=== PATIENT | male | born 1950 | race Caucasian/White ===

== ENCOUNTER 2018-04-29 14:14 | Observation (INO) | payer MEDICARE ==
[~2018-04-29] VITALS: Ht 175.3 cm; Wt 76.0 kg
[2018-04-29] MEDS ORDERED: NORVASC10 MG PO (14:22)
[2018-04-29 14:30] VITALS: BP 141/77
[2018-04-29 14:54] LABS: BASOPHILS 0.3 % (0-2); EOSINOPHILS 2.9 % (0-7); HEMATOCRIT 43.8 % (42.0-54.0); HEMOGLOBIN 15.2 g/dL (13.5-17.5); IMMATURE GRANULOCYTES 0.2 % (0-5); LYMPHOCYTES 10.7 % (15-50); MCH 33.9 pg (26.0-34.0); MCHC 34.7 g/dL (31.0-37.0); MCV 97.6 fL (80.0-100.0); MEAN PLATELET VOLUME 11.9 fL (7.4-10.4); MONOCYTES 9.1 % (2-11); NEUTROPHILS 76.8 % (40-80); PLATELET COUNT 157 10x3/uL (130-400); RBC 4.49 10x6/uL (4.20-6.10); WBC 10.6 10x3/uL (4.8-10.8)
[2018-04-29 15:09] LABS: ALBUMIN 3.6 g/dL (3.4-5.0); ALKALINE PHOSPHATASE 70 U/L (46-116); ALT (SGPT) 15 U/L (10-68); BILIRUBIN - TOTAL 0.81 mg/dL (0.2-1.3); CALC OSMOLALITY 281 mosm/kg (275-300); CALCIUM 9.3 mg/dL (8.5-10.1); CARBON DIOXIDE 29.1 mmol/L (21.0-32.0); CHLORIDE - SERUM 103 mmol/L (98-107); CREATININE - SERUM 0.7 mg/dL (0.6-1.3); GLUCOSE 109 mg/dL (74-106); POTASSIUM - SERUM 4.2 mmol/L (3.5-5.1); PROTEIN - SERUM 7.2 g/dL (6.4-8.2); SODIUM 140 mmol/L (136-145); UREA NITROGEN 17 mg/dL (7-18); eGFR NON AFRICAN AMERICAN > 90 mL/min (90-120)
[2018-04-29 15:30] VITALS: BP 144/86
[2018-04-29 16:30] VITALS: BP 156/93
[2018-04-29 17:09] LABS: APTT 27.5 SECONDS (22.8-39.4); INR 0.91 (0.85-1.17); PROTIME 11.9 SECONDS (11.6-15.0)
[2018-04-29 17:11] LABS: D-DIMER-QUANTITATIVE 0.96 ug/mLFEU (0.20-0.54)
[2018-04-29 17:16] LABS: CKMB 3.5 U/L (0.0-3.6); CREATINE KINASE 138 UL (21-232); PRO BNP 170 pg/mL (0-125); TROPONIN-I < 0.017 ng/mL (0.000-0.060)
[2018-04-29 17:30] VITALS: BP 157/94
[2018-04-29 18:30] VITALS: BP 160/90
[2018-04-29 21:09] VITALS: BP 142/79
[2018-04-29] MEDS ORDERED: ELAVIL10 MG PO (22:08)
[2018-04-29] MEDS ORDERED: PROAIR HFA8.5 GM INH (22:24)
[2018-04-30 02:46] VITALS: Ht 175.3 cm; Wt 76.0 kg
[2018-04-30 05:14] LABS: BASOPHILS 0.2 % (0-2); EOSINOPHILS 0 % (0-7); HEMATOCRIT 43.9 % (42.0-54.0); HEMOGLOBIN 14.8 g/dL (13.5-17.5); IMMATURE GRANULOCYTES 0.2 % (0-5); LYMPHOCYTES 6.8 % (15-50); MCHC 33.7 g/dL (31.0-37.0); MCV 97.8 fL (80.0-100.0); MEAN PLATELET VOLUME 12.4 fL (7.4-10.4); MONOCYTES 0.8 % (2-11); PLATELET COUNT 149 10x3/uL (130-400); RBC 4.49 10x6/uL (4.20-6.10); RDW 13.7 % (11.5-14.5)
[2018-04-30 05:19] LABS: WBC 6.3 10x3/uL (4.8-10.8)
[2018-04-30 05:33] LABS: ALBUMIN 3.4 g/dL (3.4-5.0); ALKALINE PHOSPHATASE 66 U/L (46-116); CALCIUM 9.1 mg/dL (8.5-10.1); CARBON DIOXIDE 27.8 mmol/L (21.0-32.0); CHLORIDE - SERUM 104 mmol/L (98-107); CREATININE - SERUM 0.7 mg/dL (0.6-1.3); POTASSIUM - SERUM 4.2 mmol/L (3.5-5.1); PROTEIN - SERUM 6.9 g/dL (6.4-8.2); SODIUM 140 mmol/L (136-145); UREA NITROGEN 17 mg/dL (7-18); eGFR NON AFRICAN AMERICAN > 90 mL/min (90-120)
[2018-04-30 05:37] LABS: ALT (SGPT) 20 U/L (10-68); CALC OSMOLALITY 283 mosm/kg (275-300); GLUCOSE 161 mg/dL (74-106)
[2018-04-30 05:50] VITALS: BP 146/88
[2018-04-30 08:25] VITALS: BP 168/93
[2018-04-30 11:38] VITALS: BP 157/75
[2018-04-30 15:22] VITALS: BP 138/87
[2018-04-30 20:22] VITALS: BP 140/88
[2018-05-01] VITALS: BP 116/88
[2018-05-01 05:19] LABS: BASOPHILS 0.1 % (0-2); EOSINOPHILS 0 % (0-7); HEMATOCRIT 41.9 % (42.0-54.0); HEMOGLOBIN 14.2 g/dL (13.5-17.5); IMMATURE GRANULOCYTES 0.3 % (0-5); LYMPHOCYTES 3.1 % (15-50); MCH 33.3 pg (26.0-34.0); MCHC 33.9 g/dL (31.0-37.0); MCV 98.4 fL (80.0-100.0); MEAN PLATELET VOLUME 11.8 fL (7.4-10.4); MONOCYTES 3.5 % (2-11); PLATELET COUNT 138 10x3/uL (130-400); RBC 4.26 10x6/uL (4.20-6.10); RDW 13.8 % (11.5-14.5)
[2018-05-01 05:23] LABS: WBC 17.6 10x3/uL (4.8-10.8)
[2018-05-01 05:42] LABS: CALC OSMOLALITY 287 mosm/kg (275-300); CALCIUM 8.4 mg/dL (8.5-10.1); CARBON DIOXIDE 29.4 mmol/L (21.0-32.0); CHLORIDE - SERUM 106 mmol/L (98-107); CREATININE - SERUM 0.7 mg/dL (0.6-1.3); GLUCOSE 159 mg/dL (74-106); POTASSIUM - SERUM 4.1 mmol/L (3.5-5.1); SODIUM 143 mmol/L (136-145); UREA NITROGEN 13 mg/dL (7-18); eGFR NON AFRICAN AMERICAN > 90 mL/min (90-120)
[2018-05-01 06:35] VITALS: BP 131/70
[2018-05-01 07:53] VITALS: BP 124/79
[2018-05-01] MEDS ORDERED: SINGULAIR10 MG PO (10:46)
[2018-05-01] MEDS ORDERED: OMNICEF300 MG PO (10:46)
[2018-05-01] MEDS ORDERED: PULMICORT0.5 MG/21 UPD (10:46)
[2018-05-01] MEDS ORDERED: PROTONIX40 MG PO (10:46)
[2018-05-01] MEDS ORDERED: MEDROL DOSE PACK4 MG PO (10:47)
[2018-05-01] MEDS ORDERED: BROVANA15 MCG/2 M INH (10:48)
[2018-05-01] MEDS ORDERED: IPRAT-ALBUT 0.5-3 ML UPD ×2 (10:48→11:51)
[2018-05-01] MEDS ORDERED: ADVAIR 250/501 DISK INH (11:08)
[2018-05-01] MEDS ORDERED: COMBIVENT RESPIM4 GM INH ×3 (11:08→11:53)
[2018-05-01] MEDS ORDERED: PREDNISONE20 MG PO ×2 (11:08→11:54)
[2018-05-01] MEDS ORDERED: SYMBICORT 16010.2 GM INH (11:53)
[2018-05-01 11:57] VITALS: BP 141/85
[2018-05-05 13:19] LABS: IMMUNOGLOBULIN E 680 IU/mL (0-100)
== END 2018-05-01 14:05 | disposition home or self-care (01) ==
LOC: D.ER 14:14 → D.M2 18:26 → OBSVTIME 18:26 → D.M2 18:26
PROVIDERS: Family Medicine; Internal Medicine Pulmonary Disease
DX: J44.1 Chronic obstructive pulmonary disease with (acute) exacerbation (principal); Z86.73 Personal history of transient ischemic attack (TIA), and cerebral infarction without residual deficits; I10 Essential (primary) hypertension; F17.210 Nicotine dependence, cigarettes, uncomplicated; J31.0 Chronic rhinitis; K44.9 Diaphragmatic hernia without obstruction or gangrene; K57.92 Diverticulitis of intestine, part unspecified, without perforation or abscess without bleeding; F41.8 Other specified anxiety disorders

== ENCOUNTER 2019-09-14 03:54 | Inpatient (IN) | payer MEDICARE ==
[~2019-09-14] VITALS: Ht 175.3 cm; Wt 77.3 kg
[~2019-09-14 03:54] MED LIST: ADVAIR 250/501 DISK INH; BROVANA15 MCG/2 M INH; COMBIVENT RESPIM4 GM INH; ELAVIL10 MG PO; IPRAT-ALBUT 0.5-3 ML UPD; MEDROL DOSE PACK4 MG PO; NORVASC10 MG PO; OMNICEF300 MG PO; PREDNISONE20 MG PO; PROAIR HFA8.5 GM INH; PROTONIX40 MG PO; PULMICORT0.5 MG/21 UPD; SINGULAIR10 MG PO; SYMBICORT 16010.2 GM INH
[2019-09-14] MEDS ORDERED: MUCINEX600 MG (04:01)
[2019-09-14] MEDS ORDERED: MUCINEX600 MG PO (04:02)
[2019-09-14] MEDS ORDERED: FLUTICASONE PRO16 GM NASAL (04:03)
[2019-09-14 04:42] LABS: BASOPHILS 0.2 % (0-2); EOSINOPHILS 0.1 % (0-7); HEMATOCRIT 47.9 % (42.0-54.0); IMMATURE GRANULOCYTES 0.7 % (0-5); LYMPHOCYTES 4.9 % (15-50); MCH 34.7 pg (26.0-34.0); MCHC 33.4 g/dL (31.0-37.0); MCV 103.9 fL (80.0-100.0); MEAN PLATELET VOLUME 10.8 fL (7.4-10.4); MONOCYTES 13.8 % (2-11); NEUTROPHILS 80.3 % (40-80); PLATELET COUNT 203 10x3/uL (130-400); RBC 4.61 10x6/uL (4.20-6.10); WBC 11.7 10x3/uL (4.8-10.8)
[2019-09-14 04:49] LABS: APTT 28.6 SECONDS (22.8-39.4); INR 1.02 (0.85-1.17); PROTIME 12.9 SECONDS (11.6-15.0)
[2019-09-14 05:00] VITALS: BP 125/71
--- NOTE | 2019-09-14 05:00 | NUR ---
RT PLACED ON BIPAP
[2019-09-14 05:05] LABS: CALC OSMOLALITY 284 mosm/kg (275-300); CALCIUM 8.8 mg/dL (8.5-10.1); CARBON DIOXIDE 28.1 mmol/L (21.0-32.0); CHLORIDE - SERUM 101 mmol/L (98-107); CREATININE - SERUM 0.7 mg/dL (0.6-1.3); GLUCOSE 149 mg/dL (74-106); POTASSIUM - SERUM 3.4 mmol/L (3.5-5.1); SODIUM 141 mmol/L (136-145); UREA NITROGEN 15 mg/dL (7-18); eGFR NON AFRICAN AMERICAN > 90 mL/min (90-120)
[2019-09-14 05:20] LABS: ALBUMIN 2.5 g/dL (3.4-5.0); ALKALINE PHOSPHATASE 75 U/L (46-116); ALT (SGPT) 36 U/L (10-68); BILIRUBIN - TOTAL 0.46 mg/dL (0.2-1.3); CREATINE KINASE 281 UL (21-232); PRO BNP 834 pg/mL (0-125); PROTEIN - SERUM 7.6 g/dL (6.4-8.2); TROPONIN-I < 0.017 ng/mL (0.000-0.060)
--- NOTE | 2019-09-14 06:43 | NUR ---
RECIEVED RE[PORT FROM [facility], AT SHIFT CHANGE. PT ARRIVED BY WHEELCHAIR, BIPAP AT BEDSIDE. PT AAOX4, VSS, SBP 160'S. NO S/S OF DISTRESS. PT QUICKSTART. WHEEL TRANSFER PT CARE TO INCOMING NURSE. PT DENIES ANY FURTHER NEEDS AT THIS TIME. CL WITHIN REACH.
[2019-09-14 08:00] VITALS: BP 160/82
[2019-09-14 11:36] VITALS: BP 129/78
--- NOTE | 2019-09-14 12:53 | NUR ---
RECIEVED PT FROM ED PER ANA PAULA STAPLES, AT 1100 PT TAKEN OFF BIPAP WAS WIDE AWAKE AT THIS TIME, PLACE ON 5L/M NASAL CANNULA. 1251 PT C/O SOB, GIVEN PRN TX FOR SOB, ASK PT TO PLACE BIPAP BACK ON BUT ASK TO WAIT FOR 1 HOUR TO SEE IF HE COULD GET ANY SECRETIONS COUGHED OUT
[2019-09-14 15:55] VITALS: BP 164/82; BMI 24.4
[2019-09-14 16:04] VITALS: BP 170/79
--- NOTE | 2019-09-14 19:45 | NUR ---
EVENING ROUNDS COMPLETED, VSS, WITH O2SAT 92 ON 4L O2. RT @BEDSIDE. EDUCATE PT ON THE NEED TO KEEP BIPAP ON @NIGHT. PT VOICED UNDERSTANDING. PT ALERT AND ORIENTED. SPOKE AT LENT WITH DAUGHTER CARLI, WHO WAS CONCERENED ABOUT PT'S DIAGNOSIS. PT DENIES ANY FURTHER NEEDS AT THIS TIME. NS INFUSING @ 75. WILL CPOC. CL WITHIN REACH, BED IN LOW, SR UP X2.
[2019-09-14 20:15] VITALS: BP 157/75
[2019-09-15] VITALS (7 sets, daily range): BP systolic 138–171; BP diastolic 73–86; Ht 175.3 cm; Wt 77.3 kg
[2019-09-15 05:23] LABS: BASOPHILS 0.1 % (0-2); EOSINOPHILS 0 % (0-7); HEMATOCRIT 43.6 % (42.0-54.0); HEMOGLOBIN 14.1 g/dL (13.5-17.5); IMMATURE GRANULOCYTES 0.6 % (0-5); LYMPHOCYTES 3.5 % (15-50); MCH 34.2 pg (26.0-34.0); MCHC 32.3 g/dL (31.0-37.0); MCV 105.8 fL (80.0-100.0); MEAN PLATELET VOLUME 10.9 fL (7.4-10.4); NEUTROPHILS 88.8 % (40-80); PLATELET COUNT 216 10x3/uL (130-400); RBC 4.12 10x6/uL (4.20-6.10); RDW 14.8 % (11.5-14.5); WBC 10.4 10x3/uL (4.8-10.8)
[2019-09-15 05:47] LABS: ALBUMIN 2.1 g/dL (3.4-5.0); ALKALINE PHOSPHATASE 90 U/L (46-116); BILIRUBIN - TOTAL 0.33 mg/dL (0.2-1.3); CALCIUM 8.2 mg/dL (8.5-10.1); CARBON DIOXIDE 32.6 mmol/L (21.0-32.0); CHLORIDE - SERUM 106 mmol/L (98-107); PHOSPHOROUS 2.6 mg/dL (2.5-4.9); POTASSIUM - SERUM 4.7 mmol/L (3.5-5.1); PRO BNP 868 pg/mL (0-125); PROTEIN - SERUM 6.5 g/dL (6.4-8.2); SODIUM 144 mmol/L (136-145)
[2019-09-15 05:48] LABS: ALT (SGPT) 58 U/L (10-68); CALC OSMOLALITY 295 mosm/kg (275-300); CREATININE - SERUM 0.5 mg/dL (0.6-1.3); GLUCOSE 200 mg/dL (74-106); UREA NITROGEN 20 mg/dL (7-18); eGFR NON AFRICAN AMERICAN > 90 mL/min (90-120)
--- NOTE | 2019-09-15 07:48 | NUR ---
ASSESSMENT DONE. DENIES NEEDS
--- NOTE | 2019-09-15 16:52 | NUR ---
I have reviewed this patient and I concur with the Shift Assessment completed by the Licensed Practical Nurse today this shift.
--- NOTE | 2019-09-15 17:48 | NUR ---
WITHOUT CHANGES OR DISTRESS NOTED AT THIS TIME.
--- NOTE | 2019-09-15 19:10 | NUR ---
BEDSIDE REPORT RECEIVED FROM DAY SHIFT, PT CARE ASSUMED. INTRODUCED SELF AND WROTE NAME ON BOARD. PT LYING IN BED, WATCHING TV, AAOX4. REQUESTING COFFEE, PROVIDED. DENIES PAIN OR ANY OTHER NEEDS AT THIS TIME. BED IN LOWEST POSITION, SR X2, CALL LIGHT WITHIN REACH. WILL CONTINUE TO MONITOR.
--- NOTE | 2019-09-15 23:08 | NUR ---
PT C/O PIV TO LEFT WRIST "CAME OUT WHILE USING THE URINAL". CATHETER TIP INTACT, NO BLEEDING NOTED AT SITE. PIV RESITED TO LEFT FOREARM, 20 GAUGE, ATTEMPTS X2, PT TOLERATED WELL, FLUSHES WITHOUT ISSUES, NO S/S OF INFILTRATION OR INFLAMMATION. REQUESTING WATER, PROVIDED. DENIES ANY OTHER NEEDS AT THIS TIME. BED IN LOWEST POSITION, SR X2, CALL LIGHT WITHIN REACH. WILL CONTINUE TO MONITOR.
[2019-09-16 04:00] VITALS: BP 140/83
--- NOTE | 2019-09-16 07:30 | NUR ---
ASSESSMENT DONE. DENIES NEEDS
[2019-09-16 08:00] VITALS: BP 149/81
[2019-09-16 12:43] VITALS: BP 135/76
--- NOTE | 2019-09-16 15:09 | NUR ---
I have reviewed this patient and I concur with the Shift Assessment completed by the Licensed Practical Nurse today this shift.
[2019-09-16 16:13] VITALS: BP 127/76
--- NOTE | 2019-09-16 19:10 | NUR ---
BEDSIDE REPORT RECEIVED FROM DAY SHIFT, PT CARE ASSUMED. WROTE NAME ON BOARD. PT LYING IN BED WITH EYES CLOSED, NO S/S OF DISTRESS, BIPAP IN USE, DENIES ANY NEEDS AT THIS TIME. BED IN LOWEST POSITION, SR X2, CALL LIGHT WITHIN REACH. WILL CONTINUE TO MONITOR.
[2019-09-16 20:00] VITALS: BP 134/66
[2019-09-17] VITALS: BP 124/64
[2019-09-17 04:00] VITALS: BP 136/68
[2019-09-17 05:09] LABS: BASOPHILS 0.1 % (0-2); EOSINOPHILS 0 % (0-7); HEMATOCRIT 44.7 % (42.0-54.0); HEMOGLOBIN 14.5 g/dL (13.5-17.5); IMMATURE GRANULOCYTES 1.4 % (0-5); LYMPHOCYTES 5.5 % (15-50); MCHC 32.4 g/dL (31.0-37.0); MCV 104.9 fL (80.0-100.0); PLATELET COUNT 219 10x3/uL (130-400); RBC 4.26 10x6/uL (4.20-6.10); RDW 14.2 % (11.5-14.5); WBC 11.8 10x3/uL (4.8-10.8)
[2019-09-17 05:35] LABS: CALCIUM 7.9 mg/dL (8.5-10.1); CARBON DIOXIDE 38.1 mmol/L (21.0-32.0); CHLORIDE - SERUM 104 mmol/L (98-107); CREATININE - SERUM 0.4 mg/dL (0.6-1.3); GLUCOSE 159 mg/dL (74-106); MAGNESIUM - SERUM 1.8 mg/dL (1.8-2.4); PHOSPHOROUS 2.5 mg/dL (2.5-4.9); SODIUM 145 mmol/L (136-145); eGFR NON AFRICAN AMERICAN > 90 mL/min (90-120)
[2019-09-17 05:40] LABS: CALC OSMOLALITY 291 mosm/kg (275-300); POTASSIUM - SERUM 3.7 mmol/L (3.5-5.1); UREA NITROGEN 13 mg/dL (7-18)
--- NOTE | 2019-09-17 06:14 | NUR ---
IV FOUND IN BED, CATHETER TIP INTACT, NO S/S OF BLEEDING AT SITE ON LEFT FOREARM. PT DENIES REMOVING IV, STATES "IT MUST HAVE HAPPENED WHILE I WAS SLEEPING." AM MEDS ADMINISTERED, PER ORDER. DENIES ANY OTHER NEEDS AT THIS TIME. BED IN LOWEST POSITION, SR X1, CALL LIGHT WITHIN REACH. WILL CONTINUE TO MONITOR.
--- NOTE | 2019-09-17 07:00 | NUR ---
RECEIVED REPORT. ASSUMED CARE OF PATIENT. CALL LIGHT WITHIN REACH. PATIENT RESTING WITH EYES CLOSED, LYING ON RIGHT LATERAL SIDE. NO DISTRESS. RESP EVEN AND UNLABORED.
[2019-09-17 07:56] VITALS: BP 131/59
--- NOTE | 2019-09-17 09:10 | NUR ---
20 GAUGE IV PLACED TO RIGHT HAND X 1 STICK. GOOD BLOOD RETURN, EASY FLUSH. TAPED, DATED AND SECURED. TOLERATED IV PLACEMENT WELL. IV FLUIDS INFUSING ORDERED AT THIS TIME. PATIENT ON BIPAP.
[2019-09-17 11:19] VITALS: BP 130/73
--- NOTE | 2019-09-17 11:29 | NUR ---
FSBS 188. PATIENT WOULD NOT ACCEPT WHOLE 8 UNITS, WOULD ONLY ACCEPT HALF. 4 UNITS ADMINISTERED. PATEINT RESTING IN BED AT THIS TIME. NO DISTRESS.
--- NOTE | 2019-09-17 14:40 | NUR ---
RESTING IN BED. NO DISTRESS. CALL LIGHT WITHIN REACH. IV FLUIDS/LEVAQUIN INFUSING ORDERED AT THIS TIME. NO DISTRESS.
[2019-09-17 15:15] VITALS: BP 124/73
--- NOTE | 2019-09-17 16:36 | NUR ---
FSBS 141. NO INSULIN PER SLIDING SCALE.
--- NOTE | 2019-09-17 17:27 | NUR ---
PATIENT PLACED ON BIPAP AT THIS TIME. NO DISTRESS. RESTING COMFORTABLY.
[2019-09-17 19:55] VITALS: BP 117/64
--- NOTE | 2019-09-17 20:23 | NUR ---
INITIAL ROUNDS COMPLETED AT 1910 HRS. PT DENID ANY DISCOMFORT. RT TX IN PROGRESS. ASSESSMENT COMPLETED AT 1935 HRS. VSS. ALERT AND ORIENTED TO PERSON, PLACE AND TIME. CARTER. IV TO R HAND WITH NS AT 50CC/HR. IV PATENT. O2 5LNC. LUNGS DIMINISHED IN BASES BILAT. ABD SOFT WTIH ACTIVE BS NOTED. CALL LIGHT WITHIN REACH.
--- NOTE | 2019-09-17 22:29 | NUR ---
PM FSBS 184. 8 UNIJTS REG INSULIN GIVEN SUB-Q TO UPPER L ARM. PM MEDS GIVEN PER ORDERS. PT CURRENTLY WATCHING TV. SR UP X1, CALL LIGHT WITHIN REACH.
--- NOTE | 2019-09-17 23:08 | NUR ---
WATCHING TV. NO DISTRESS NOTED.
--- NOTE | 2019-09-18 00:19 | NUR ---
VSS. BIPAP IN USE. CALL LIGHT WITHIN REACH.
[2019-09-18 00:21] VITALS: BP 150/86
--- NOTE | 2019-09-18 01:56 | NUR ---
PT RESTING WITH EYES CLOSED. RESP EVEN AND REGULAR. BIPAP IN USE. SR UP X1, CALL LIGHT WITHIN REACH.
--- NOTE | 2019-09-18 04:39 | NUR ---
PT RESTING WITH EYES CLOSED. RESP EVEN AND REGULAR. SR UP X3, CALL LIGHT WITHIN REACH.
[2019-09-18 04:49] VITALS: BP 137/61
[2019-09-18 05:17] LABS: BASOPHILS 0.1 % (0-2); EOSINOPHILS 0 % (0-7); HEMATOCRIT 44.9 % (42.0-54.0); HEMOGLOBIN 14.9 g/dL (13.5-17.5); IMMATURE GRANULOCYTES 1.6 % (0-5); LYMPHOCYTES 3.9 % (15-50); MCH 34.1 pg (26.0-34.0); MCHC 33.2 g/dL (31.0-37.0); MEAN PLATELET VOLUME 11.3 fL (7.4-10.4); MONOCYTES 7.1 % (2-11); NEUTROPHILS 87.3 % (40-80); PLATELET COUNT 188 10x3/uL (130-400); RBC 4.37 10x6/uL (4.20-6.10); RDW 13.9 % (11.5-14.5); WBC 10.4 10x3/uL (4.8-10.8)
[2019-09-18 05:30] LABS: CALC OSMOLALITY 289 mosm/kg (275-300); CARBON DIOXIDE 35.3 mmol/L (21.0-32.0); CHLORIDE - SERUM 103 mmol/L (98-107); CREATININE - SERUM 0.5 mg/dL (0.6-1.3); GLUCOSE 182 mg/dL (74-106); POTASSIUM - SERUM 3.8 mmol/L (3.5-5.1); SODIUM 142 mmol/L (136-145); eGFR NON AFRICAN AMERICAN > 90 mL/min (90-120)
[2019-09-18 05:35] LABS: MCV 102.7 fL (80.0-100.0)
[2019-09-18 05:47] LABS: UREA NITROGEN 17 mg/dL (7-18)
--- NOTE | 2019-09-18 05:58 | NUR ---
VSS THROUGHOUT NIGHT. PT DENIED ANY DISCOMFORT. NEEDS MET; WILL CONTINUE TO MONITOR.
--- NOTE | 2019-09-18 07:00 | NUR ---
RECEIVED REPORT. ASSUMED CARE OF PATIENT. CALL LIGHT WITHIN REACH. PATIENT RESTING ON RIGHT LATERAL SIDE WITH EYES CLOSED. RESP EVEN AND UNLABORED. NO DISTRESS.
--- NOTE | 2019-09-18 07:47 | NUR ---
PATIENT SITTING TO BEDSIDE AT THIS TIME STATING THAT HE DIDN'T GET ANY SLEEP LAST NIGHT. PATIENT WAITING FOR AM MEAL. NO DISTRESS. O2 VIA NC AT THIS TIME.
[2019-09-18 07:53] VITALS: BP 145/66
--- NOTE | 2019-09-18 09:17 | NUR ---
BIPAP PLACED ON PATIENT AT THIS TIME.
[2019-09-18 11:28] VITALS: BP 127/71
--- NOTE | 2019-09-18 11:43 | NUR ---
DSBS 171. REFUSED INSULIN AT THIS TIME.
[2019-09-18 15:32] VITALS: BP 142/82
--- NOTE | 2019-09-18 16:42 | NUR ---
FSBS 221. 12 UNITS HUMULIN ADMINISTERED PER SLIDING SCALE. NO DISTRESS.
[2019-09-18 20:30] VITALS: BP 148/67
--- NOTE | 2019-09-18 21:39 | NUR ---
INITIAL ROUNDS COMPLETED AT 1910 HRS. PT DENIED ANY DISCOMFORT. ASSESSMENT COMPLETED AT 1945 HRS. VSS. ALERT AND ORIENTED TO PERSON, PLACE AND TIME. O2 5LNC. LUNGS DIMINISHED IN BASES BILAT. IV TO R HAND WITH NS AT 50CC/HR. IV PATENT. PM FSBS 181. PT REFUSED COVERGAE. PM MEDS GIVEN. PT CURRENTLY WATCHING TV. SR UP X3, CALL LIGHT WITHIN REACH AND DOOR OPEN.
--- NOTE | 2019-09-18 22:49 | NUR ---
PT RESTING WITH EYES CLOSED. RESP EVEN AND REGULAR. SR UP X3, CALL LIGHT WITHIN REACH.
--- NOTE | 2019-09-19 00:26 | NUR ---
PT RESTING WITH EYES CLOSED. RESP EVEN AND REGULAR. BIPAP IN USE. SR UP X3, CALL LIGHT WITHIN REACH.
[2019-09-19 00:45] VITALS: BP 138/81
--- NOTE | 2019-09-19 02:06 | NUR ---
PT WATCHING TV. NO DISTRESS NOTED. CALL LIGHT WITHIN REACH.
[2019-09-19 04:25] VITALS: BP 118/70
--- NOTE | 2019-09-19 04:26 | NUR ---
PT RESTING WITH EYES CLOSED. RESP EVEN AND REGULAR. SR UP X3, CALL LIGHT WITHIN REACH.
[2019-09-19 05:03] LABS: BASOPHILS 0.1 % (0-2); EOSINOPHILS 0 % (0-7); HEMATOCRIT 44.5 % (42.0-54.0); HEMOGLOBIN 14.8 g/dL (13.5-17.5); IMMATURE GRANULOCYTES 1.9 % (0-5); LYMPHOCYTES 4.9 % (15-50); MCHC 33.3 g/dL (31.0-37.0); MCV 102.3 fL (80.0-100.0); MEAN PLATELET VOLUME 11.2 fL (7.4-10.4); MONOCYTES 9.7 % (2-11); NEUTROPHILS 83.4 % (40-80); PLATELET COUNT 200 10x3/uL (130-400); RBC 4.35 10x6/uL (4.20-6.10); RDW 14.1 % (11.5-14.5); WBC 11.5 10x3/uL (4.8-10.8)
[2019-09-19 05:18] LABS: CALC OSMOLALITY 291 mosm/kg (275-300); CHLORIDE - SERUM 103 mmol/L (98-107); GLUCOSE 162 mg/dL (74-106); POTASSIUM - SERUM 3.6 mmol/L (3.5-5.1); SODIUM 144 mmol/L (136-145); UREA NITROGEN 16 mg/dL (7-18)
[2019-09-19 05:24] LABS: CREATININE - SERUM 0.7 mg/dL (0.6-1.3); eGFR NON AFRICAN AMERICAN > 90 mL/min (90-120)
--- NOTE | 2019-09-19 06:01 | NUR ---
VSS THROUGHOUT NIGHT. PT DENIED ANY DISCOMFORT. AM FSBS 162. REFUSED AM INSULIN. NEEDS MET; WILL CONTINUE TO MONITOR.
[2019-09-19 08:00] VITALS: BP 165/79
--- NOTE | 2019-09-19 09:42 | NUR ---
AM MEDS GIVEN AT THIS TIME. PT A/O X4, RESP AND NONLABORED ON 5L. RT HAND IV INFUSING NS AT 50CC/HR. PT DENIES ANY NEEDS AT THIS TIME. CALL LIGHT IN REACH, NAD NOTED,W ILL CONTINUE TO MONITOR.
--- NOTE | 2019-09-19 11:37 | NUR ---
PT TO CT.
--- NOTE | 2019-09-19 11:57 | NUR ---
BLOOD SUGAR OF 245, 12UNITS GIVEN PER S/S. PT RESTING COMFORTABLY IN BED,DENIES ANY NEEDS AT THIS TIME. CALL LIGHT IN REACH, NAD NOTED,W ILL CONTINUE TO MONITOR.
--- NOTE | 2019-09-19 13:51 | NUR ---
Nutrition Follow-up: Doesn't like the hospital food but reports he ate 2/3 of breakfast this AM. Drinking 1-2 Ensure/day. C/o intermittent nausea. Diet: Regular, Ensure TID PO intake: 60% x 7 meals Wt: 170# (09/18); 165# (09/14 - stated) Last BM: 09/19 Labs noted: Glu 162, Ca 8.0 Meds noted: Solumedrol, Humulin, NS @ 50 -Continue current diet as tolerated. -Monitor wt; noted daily wts ordered. -RD following.
[2019-09-19 14:55] VITALS: BP 131/61
[2019-09-19 17:42] VITALS: BP 117/65
--- NOTE | 2019-09-19 19:51 | NUR ---
REPORT RECIEVED AND ROUNDING COMPLETE. PATIENT LAYING IN BED IN HIGH FOWLERS. PATIENT IS RECIVING A BREATHING TREATMENT AT THIS TIME. PATIENT HAS A RIGHT HAND PIV THAT IS PATENT AND RUNNING FLUIDS AT THIS TIME. PIV SHOWS NO S/SX OF INFILTRATION AT THIS TIME. PATIENT WEARS NASAL CANNULA WHEN NOT ON BIPAP. PATIENT STATES HE HAS NO NEEDS AT THIS TIME. PATIENT SHOWS NO S/SX OF DISTRESS AT THIS TIME. CALL LIGHT WITHIN REACH AND BED IN LOWEST LOCKED POSITION
[2019-09-19 20:30] VITALS: BP 140/59
--- NOTE | 2019-09-19 23:39 | NUR ---
I have reviewed this patient and I concur with the Shift Assessment completed by the Licensed Practical Nurse today this shift.
[2019-09-20 00:25] VITALS: BP 142/75
[2019-09-20 04:27] VITALS: BP 137/61
[2019-09-20 05:47] LABS: BASOPHILS 0.1 % (0-2); EOSINOPHILS 0 % (0-7); HEMATOCRIT 42.8 % (42.0-54.0); HEMOGLOBIN 14.6 g/dL (13.5-17.5); IMMATURE GRANULOCYTES 2.7 % (0-5); LYMPHOCYTES 3.8 % (15-50); MCH 34.8 pg (26.0-34.0); MCHC 34.1 g/dL (31.0-37.0); MCV 102.1 fL (80.0-100.0); MEAN PLATELET VOLUME 12.1 fL (7.4-10.4); MONOCYTES 5.4 % (2-11); PLATELET COUNT 166 10x3/uL (130-400); RBC 4.19 10x6/uL (4.20-6.10); RDW 14.3 % (11.5-14.5); WBC 11.5 10x3/uL (4.8-10.8)
[2019-09-20 06:02] LABS: CALC OSMOLALITY 292 mosm/kg (275-300); CARBON DIOXIDE 33.3 mmol/L (21.0-32.0); CHLORIDE - SERUM 104 mmol/L (98-107); CREATININE - SERUM 0.6 mg/dL (0.6-1.3); GLUCOSE 166 mg/dL (74-106); POTASSIUM - SERUM 3.8 mmol/L (3.5-5.1); SODIUM 144 mmol/L (136-145); UREA NITROGEN 19 mg/dL (7-18); eGFR NON AFRICAN AMERICAN > 90 mL/min (90-120)
--- NOTE | 2019-09-20 07:00 | NUR ---
BEDSIDE SHIFT REPORT COMPLETED. ASSUMED CARE OF PATIENT. PATIENT RESTING IN BED ON RIGHT LATERAL SIDE WITH EYES CLOSED. RESP EVEN AND UNLBORED. NO DISTRESS. O2 VIA NC. WHITE BOARD UPDATED.
[2019-09-20 11:01] VITALS: BP 131/68
--- NOTE | 2019-09-20 12:01 | NUR ---
FSBS 159. PATIENT REFUSED INSULIN AT THIS TIME.
--- NOTE | 2019-09-20 16:48 | NUR ---
FSBS 148. NO INSULIN PER SLIDING SCALE.
--- NOTE | 2019-09-20 17:03 | NUR ---
NEW TUBING HUNG AT THIS TIME.
--- NOTE | 2019-09-20 17:05 | MORECARE ---
CASE MANAGEMENT DISCHARGE SUMMARY PATIENT: RIVERA PHILLIPS UNIT: [id number] ADM DATE: 09/14/19 AGE: 69 : 49 SEX: M ROOM/BED: D.2110 AUTHOR: ESCOBAR,DOC PHYSICIAN: REFERRING PHYSICIAN: JOSUE PERES MD DATE OF SERVICE: 09/20/19 Discharge Plan Patient Name: RIVERA PHILLIPS Facility: [facility]:[place] : 1950 Planned Disposition: Home Anticipated Discharge Date: Discharge Date: Expected LOS: Initial Reviewer: [id number] Initial Review Date: 09/20/2019 Generated: 09/20/19 6:04 pm Comments DCP- Discharge Planning Updated by [id number]: Ramiro George on 09/20/19 4:[address] Patient Name: RIVERA PHILLIPS Admission Status: ER Accout number: [id number] Admission Date: 09-14-2019 : 1950 Admission Diagnosis: Attending: JOSUE PERES Current LOS: 6 Anticipated DC Date: Planned Disposition: Home Primary Insurance: MEDICARE A & B Discharge Planning Comments: CM RECEIVED ORDER FOR TRILOGY MACHINE. CM MET WITH PT IN ROOM TO DISCUSS DISCHARGE PLANNING AND NEEDS. PT REPORTS LIVING AT HOME INDEPENDENTLY WITH . PT HAS CANE, NEBULIZER AND WALKER FROM [employer]. PT HAS NO OUTSIDE SERVICES ASSISTING IN THE HOME. CM DISCUSSED AVAILABILITY OF HOME HEALTH, REHAB SERVICES AND MEDICAL EQUIPMENT. PT DOES WANT THE TRILOGY AND HAS NO PREFERENCE ON PROVIDER,, CHOICE COMPELTED. PT DOES NOT WANT TO WAIT FOR [place] PROCESSING OF WEEKS FOR EQUIPMENT. PT REPORTS HIS DAUGHTER WILL PICK HIM UP FOR DISCHARGE HOME. IMPORTANT MESSAGE FROM [employer] PROVIDED AND EXPLAINED. CM CALLED [facility], , SPOKE TO REED AND PROVIDED REFERRAL INFORMATION. CM FAXED REFERRAL TO [facility], . [facility] TO PROCESS REFERRAL FOR TRILOGY MACHINE SOON POSSIBLE. CM WAITING [facility] TO PROCESS TRILOGY MACHINE ORDER. Public Health Analyst: Ramiro George DCPIA - Discharge Planning Initial Assessment Updated by [email or web address]: Ramiro George on 09/20/19 4:57 pm * Is the patient Alert and Oriented? Yes * How many steps to enter\exit or inside your home? * PCP DR. ERAZO * Pharmacy [facility] [address] * Preadmission Environment Home with Family * ADLs Independent * Equipment Cane Nebulizer Walker * Other Equipment [employer] - PROVIDER * List name and contact numbers for known caregivers / representatives who currently or will assist patient after discharge: MITESH GALLAGHER, DTR, * Verbal permission to speak to the caregivers and representatives has been obtained from the patient. N/A * Community resources currently utilized None * Please name any agencies selected above. NONE * Additional services required to return to the preadmission environment? Yes * Can the patient safely return to the preadmission environment? Yes * Has this patient been hospitalized within the prior 30 days at any hospital? No Patient Name: RIVERA PHILLIPS Page [phone] at 1705 All edits/amendments must be made on the electronic document DICTATION DATE: 09/20/191703 BASKETBALLS AND FOOTBALLS REVERSER: TERRY 09/20/191703 RPT#: [id number] DC DATE: STATUS: ADM IN [facility] [address] [place] [address] END OF REPORT
--- NOTE | 2019-09-20 17:13 | MORECARE ---
CASE MANAGEMENT DISCHARGE SUMMARY PATIENT: RIVERA PHILLIPS UNIT: [id number] ADM DATE: 09/14/19 AGE: 69 : 49 SEX: M ROOM/BED: D.2110 AUTHOR: ESCBOAR,DOC PHYSICIAN: REFERRING PHYSICIAN: JOSUE PERES MD DATE OF SERVICE: 09/20/19 Discharge Plan Patient Name: RIVERA PHILLIPS Facility: [facility]:[place] : 1950 Planned Disposition: Home Anticipated Discharge Date: Discharge Date: Expected LOS: Initial Reviewer: [id number] Initial Review Date: 09/20/2019 Generated: 09/20/19 6:12 pm Comments DCP- Discharge Planning Updated by [id number]: Ramiro George on 09/20/19 4:[address] Patient Name: RIVERA PHILLIPS Admission Status: ER Accout number: [id number] Admission Date: 09-14-2019 : 1950 Admission Diagnosis: Attending: JOSUE PERES Current LOS: 6 Anticipated DC Date: Planned Disposition: Home Primary Insurance: MEDICARE A & B Discharge Planning Comments: CM RECEIVED ORDER FOR TRILOGY MACHINE. CM MET WITH PT IN ROOM TO DISCUSS DISCHARGE PLANNING AND NEEDS. PT REPORTS LIVING AT HOME INDEPENDENTLY WITH . PT HAS CANE, NEBULIZER AND WALKER FROM [employer]. PT HAS NO OUTSIDE SERVICES ASSISTING IN THE HOME. CM DISCUSSED AVAILABILITY OF HOME HEALTH, REHAB SERVICES AND MEDICAL EQUIPMENT. PT DOES WANT THE TRILOGY AND HAS NO PREFERENCE ON PROVIDER,, CHOICE COMPELTED. PT DOES NOT WANT TO WAIT FOR CT PROCESSING OF WEEKS FOR EQUIPMENT. PT REPORTS HIS DAUGHTER WILL PICK HIM UP FOR DISCHARGE HOME. IMPORTANT MESSAGE FROM [employer] PROVIDED AND EXPLAINED. CM CALLED [facility], , SPOKE TO REED AND PROVIDED REFERRAL INFORMATION. CM FAXED REFERRAL TO [facility], . [facility] TO PROCESS REFERRAL FOR TRILOGY MACHINE SOON POSSIBLE. CM WAITING [facility] TO PROCESS TRILOGY MACHINE ORDER. Public Safety Teacher: Ramiro George DCPIA - Discharge Planning Initial Assessment Updated by [id number]: Ramiro George on 09/20/19 4:57 pm * Is the patient Alert and Oriented? Yes * How many steps to enter\exit or inside your home? * PCP DR. ERAZO * Pharmacy [facility] [address] * Preadmission Environment Home with Family * ADLs Independent * Equipment Cane Nebulizer Walker * Other Equipment [employer] [facility] PROVID[employer] * List name and contact numbers for known caregivers / representatives who currently or will assist patient after discharge: MITESH GALLAGHER, DTR, * Verbal permission to speak to the caregivers and representatives has been obtained from the patient. N/A * Community resources currently utilized None * Please name any agencies selected above. NONE * Additional services required to return to the preadmission environment? Yes * Can the patient safely return to the preadmission environment? Yes * Has this patient been hospitalized within the prior 30 days at any hospital? No External Providers External Provider: [facility] Next Contact Date: 09/20/2019 Service Request Date: Service Type: Resolution: Reviewer: Comments: Coverage Notice Reviewer: [id number] George Notice Issued Date-Time: 09/20/2019 8:20 Notice Type: IM Discharge Notice Notice Delivered To: Patient Relationship to Patient: Core Shaper Top Name: Delivery Method: HAND - Hand Delivered Jen Days: Prior Verbal Notification: Recipient Understood Notice: Yes Recipient Signature: Yes Med Rec Note Co-signed by Attending: Coverage Notice Comment: Reviewer: IRVIN George Notice Issued Date-Time: 09/20/2019 8:20 Notice Type: Patient Choice Letter Notice Delivered To: Patient Relationship to Patient: Core Shaper Top Name: Delivery Method: HAND - Hand Delivered Jen Days: Prior Verbal Notification: Recipient Understood Notice: Yes Recipient Signature: Yes Med Rec Note Co-signed by Attending: Coverage Notice Comment: NO MEDICAL EQUIPMENT PROVIDER PREFERENCE. Last DP export: 09/20/19 4:05 pm Patient Name: RIVERA PHILLIPS Page [phone] at 1713 All edits/amendments must be made on the electronic document DICTATION DATE: 09/20/191712 ECHOCARDIOGRAPHY TECH: TERRY 09/20/191712 RPT#: [id number] DC DATE: STATUS: ADM IN [facility] [address] [place] [address] END OF REPORT
--- NOTE | 2019-09-20 19:26 | NUR ---
REPORT RECIEVED AND ROUNDING COMPLETE. PATIENT LAYING IN BED IN LOW FOWLERS. PATIENT REQUESTED TO PUT ON HIS BIPAP FOR A BIT. ASSISTED HIM WITH THIS. PATIENT SHOWS NO S/SX OF DISTRESS AT THIS TIME. PATIENT IS A&O X4. PATIENT HAS A RIGHT HAND PIV, PIV IS PATNET AND RUNNING FLUIDS AT THIS TIME. PIV SHOWS NO S/SX OF INFILTRATION. PATIENT STATES HE HAS NO NEEDS AT THIS TIME. CALL LIGHT WITHIN REACH AND BED IN LOWEST LOCKED POSITION.
--- NOTE | 2019-09-20 19:59 | NUR ---
PATIENT TOOK OF HIS BIPAP MACHINE. ASSISTED IN REPLACING HIS NASAL CANNULA WITH THE PRESET 5L O2.
[2019-09-20 20:00] VITALS: BP 143/78
[2019-09-21] VITALS (7 sets, daily range): BP systolic 101–134; BP diastolic 56–76
--- NOTE | 2019-09-21 01:57 | NUR ---
I have reviewed this patient and I concur with the Shift Assessment completed by the Licensed Practical Nurse today this shift.
[2019-09-21 06:11] LABS: BASOPHILS 0.1 % (0-2); EOSINOPHILS 0.6 % (0-7); HEMATOCRIT 42.8 % (42.0-54.0); HEMOGLOBIN 14.2 g/dL (13.5-17.5); IMMATURE GRANULOCYTES 3.7 % (0-5); LYMPHOCYTES 13.6 % (15-50); MCH 33.7 pg (26.0-34.0); MCHC 33.2 g/dL (31.0-37.0); MCV 101.7 fL (80.0-100.0); MEAN PLATELET VOLUME 11.8 fL (7.4-10.4); PLATELET COUNT 160 10x3/uL (130-400); RBC 4.21 10x6/uL (4.20-6.10); RDW 14.4 % (11.5-14.5); WBC 10.9 10x3/uL (4.8-10.8)
[2019-09-21 06:23] LABS: CALCIUM 7.9 mg/dL (8.5-10.1); CARBON DIOXIDE 35.5 mmol/L (21.0-32.0); CHLORIDE - SERUM 102 mmol/L (98-107); CREATININE - SERUM 0.5 mg/dL (0.6-1.3); POTASSIUM - SERUM 3.7 mmol/L (3.5-5.1); SODIUM 142 mmol/L (136-145); eGFR NON AFRICAN AMERICAN > 90 mL/min (90-120)
[2019-09-21 06:24] LABS: CALC OSMOLALITY 283 mosm/kg (275-300); GLUCOSE 90 mg/dL (74-106)
[2019-09-21 06:25] LABS: UREA NITROGEN 14 mg/dL (7-18)
--- NOTE | 2019-09-21 07:19 | NUR ---
REPORT RECIEVED. RR EVEN AND UNLABORED ON 5L NC. PT HAS A R HAND PIV INFUSING NS @100. BED LOCKED AND IN LOWEST POSITION, CALL LIGHT WITHIN REACH. WILL CTM
--- NOTE | 2019-09-21 09:09 | EC ---
PATIENT:RIVERA PHILLIPS DATE OF SERVICE: 09/14/19 SEX: M MEDICAL RECORD: [id number] DATE OF : [birth year] LOCATION:D.M2 D.211 AGE OF PATIENT: 69 ADMISSION DATE: 09/14/19 REFERRING PHYSICIAN: INTERPRETING PHYSICIAN: SORAYA KLEIN MD ECHOCARDIOGRAM REPORT ECHO CHARGES 4 ECHO COMPLETE Date: 09/15/19 CLINICAL DIAGNOSIS: SOB ECHOCARDIOGRAPHIC MEASUREMENTS (adult normal given) AC root (d.<3.7cm) 3.3 cm LV Septum d (<1.2 cm> 0.9 cm Valve Excursion 1.5 cm LV Septum (systole) 1.3 cm Left Atria (s.<4.0cm> 3.4 cm LVPW d(<1.2cm) 1.1 cm RV (d.<2.3cm) 3.1 cm LVPW (sytole) 1.8 cm LV diastole(<5.6CM) 6.1 cm MV E-F(>70mm/sec) cm LV systole 3.5 cm LVOT Diameter 2.0 cm MV exc.(>10mm) cm Est.ejection fraction (50-75%) % DOPPLER: LVIT cm/sec A 108 cm/sec E 86.0 cm/sec LA cm/sec RVSP 56.0 mmHg LVOT 119 cm/sec AOP1/2T m/s Asc. Ao 162 cm/sec RVOT 58.0 cm/sec RA cm/sec PA 113 cm/sec AV Gradient Peak 11.0 mmHg AV Mean 5.5 mmHg AV Area 2.2 cm MV Gradient Peak 6.1 mmHg MV Mean 3.0 mmHg MV Area cm COMMENTS: Retread Technician: 1 JOSEF CHAPMANOE Wooden Box Maker: 3 Dr. Rodriguez TAPE# PACS Pericardial Effusion N DATE OF SERVICE: Adequate 2-D echo, Color-Flow and Spectral Doppler, and M-mode. No LVH. LV internal dimension is normal. Wall motion is normal. EF is greater than or equal to 55%. Aortic valve is tricuspid. No evidence of stenosis by Doppler interrogation. Left atrium is normal. Mitral valve shows no prolapse. Trace MR. Right-sided chambers are grossly normal. Trace TR. TRANSINT:[id number] Voice Confirmation ID: [id number] DOCUMENT ID: [id number] ECHOCARDIOGRAM REPORT [id number] ARNOLD,RIVERA E SORAYA KLEIN MD at 0909 CC: [id number] DICTATION DATE: 09/19/19 1525 CIGAR PACKING EXAMINER: 09/19/19 1845 ADM IN [place] [id number] [place] [id number]
--- NOTE | 2019-09-21 11:07 | NUR ---
PATIENT 95% ON 4L/NC AMBULATE ON RA 86% PATIENT 94% ON 4L/NC WITH AMBULATION
--- NOTE | 2019-09-21 11:50 | MORECARE ---
CASE MANAGEMENT DISCHARGE SUMMARY PATIENT: RIVERA PHILLIPS UNIT: [id number] ADM DATE: 09/14/19 AGE: 69 : 49 SEX: M ROOM/BED: D.2110 AUTHOR: SUSHMA CODY PHYSICIAN: REFERRING PHYSICIAN: JOSUE PERES MD DATE OF SERVICE: 09/21/19 Discharge Plan Patient Name: RIVERA PHILLIPS Facility: [facility]:[place] : 1950 Planned Disposition: Home Anticipated Discharge Date: Discharge Date: Expected LOS: Initial Reviewer: [id number] Initial Review Date: 09/20/2019 Generated: 09/21/19 12:49 pm Comments DCP- Discharge Planning Updated by [id number]: Ramiro George on 09/21/19 10:[address] Patient Name: RIVERA PHILLIPS Encounter No: [id number] : 1950 Primary Insurance: MEDICARE A & B Anticipated DC Date: Planned Disposition: Home DCP follow-up note: CM RECEIVED ORDER FOR HOME OXYGEN TESTING; ORDER FOR RESPIRATORY THERAPY TESTING RECEIVED. PT HAS PREVIOUSLY SIGNED CONSENT FOR [employer] PREFERENCE, [facility] IS WORKING ON TRILOGY. CM SPOKE TO PT IN ROOM, PT IN AGREEMENT WITH USING [employer] FOR ENTIRE ORDER. CM CALLED [employer], , SPOKE TO CAMILO AND PROVIDED REFERRAL INFORMATION. CM FAXED REFERRAL TO [employer], . [facility] TO PROCESS REFERRAL FOR TRILOGY MACHINE AND HOME / PORTABLE OXYGEN. CM WAITING [facility] TO PROCESS TRILOGY MACHINE ORDER AND TO DELIVER PORTABLE OXYGEN TO HOSPITAL ROOM FOR PT'S DISCHARGE HOME TODAY. [facility] TO ARRANGE HOME OXYGEN DELIVERY WITH PT AFTER HIS ARRIVAL AT HOME. Bath Tester: Ramiro George DCP- Discharge Planning Updated by [id number]: Ramiro George on 09/20/19 4:[address] Patient Name: RIVERA PHILLIPS Admission Status: ER Accout number: [id number] Admission Date: 09-14-2019 : 1950 Admission Diagnosis: Attending: JOSUE PERES Current LOS: 6 Anticipated DC Date: Planned Disposition: Home Primary Insurance: MEDICARE A & B Discharge Planning Comments: CM RECEIVED ORDER FOR TRILOGY MACHINE. CM MET WITH PT IN ROOM TO DISCUSS DISCHARGE PLANNING AND NEEDS. PT REPORTS LIVING AT HOME INDEPENDENTLY WITH . PT HAS CANE, NEBULIZER AND WALKER FROM [employer]. PT HAS NO OUTSIDE SERVICES ASSISTING IN THE HOME. CM DISCUSSED AVAILABILITY OF HOME HEALTH, REHAB SERVICES AND MEDICAL EQUIPMENT. PT DOES WANT THE TRILOGY AND HAS NO PREFERENCE ON PROVIDER,, CHOICE COMPELTED. PT DOES NOT WANT TO WAIT FOR [facility] PROCESSING [facility] WEE[place] FOR EQUIPMENT. PT REPORTS HIS DAUGHTER WILL PICK HIM UP FOR DISCHARGE HOME. IMPORTANT MESSAGE FROM [employer] PROVIDED AND EXPLAINED. CM CALLED [facility], , SPOKE TO REED AND PROVIDED REFERRAL INFORMATION. CM FAXED REFERRAL TO [facility], . [facility] TO PROCESS REFERRAL FOR TRILOGY MACHINE SOON POSSIBLE. CM WAITING [facility] TO PROCESS TRILOGY MACHINE ORDER. Bath Tester: Ramiro George DCPIA - Discharge Planning Initial Assessment Updated by [id number]: Ramiro George on 09/20/19 4:57 pm * Is the patient Alert and Oriented? Yes * How many steps to enter\exit or inside your home? * PCP DR. ERAZO * Pharmacy [facility] [address] * Preadmission Environment Home with Family * ADLs Independent * Equipment Cane Nebulizer Walker * Other Equipment [employer] - PROVIDER * List name and contact numbers for known caregivers / representatives who currently or will assist patient after discharge: MITESH GALLAGHER DTR, * Verbal permission to speak to the caregivers and representatives has been obtained from the patient. N/A * Community resources currently utilized None * Please name any agencies selected above. NONE * Additional services required to return to the preadmission environment? Yes * Can the patient safely return to the preadmission environment? Yes * Has this patient been hospitalized within the prior 30 days at any hospital? No Coverage Notice Reviewer: [id number] George Notice Issued Date-Time: 09/20/2019 8:20 Notice Type: IM Discharge Notice Notice Delivered To: Patient Relationship to Patient: Transport Coordinator Name: Delivery Method: HAND - Hand Delivered Jen Days: Prior Verbal Notification: Recipient Understood Notice: Yes Recipient Signature: Yes Med Rec Note Co-signed by Attending: Coverage Notice Comment: Reviewer: IRVIN George Notice Issued Date-Time: 09/20/2019 8:20 Notice Type: Patient Choice Letter Notice Delivered To: Patient Relationship to Patient: Transport Coordinator Name: Delivery Method: HAND - Hand Delivered Jen Days: Prior Verbal Notification: Recipient Understood Notice: Yes Recipient Signature: Yes Med Rec Note Co-signed by Attending: Coverage Notice Comment: NO MEDICAL EQUIPMENT PROVIDER PREFERENCE. Last DP export: 09/20/19 4:13 pm Patient Name: RIVERA PHILLIPS Page [phone] at 1150 All edits/amendments must be made on the electronic document DICTATION DATE: 09/21/19 1149 SCALPER OPERATOR: DM 09/21/19 1149 RPT#: [id number] DC DATE: STATUS: ADM IN [facility] [address] [place] [address] END OF REPORT
[2019-09-21] MEDS ORDERED: MEDROL DOSE PACK4 MG PO (14:31)
--- NOTE | 2019-09-21 15:04 | NUR ---
I AGREE WITH THE ASSESSMENT OF THE PATIENT COMPLETED BY THE PLANT OPERATIONS MANAGER ON STAFF
--- NOTE | 2019-09-21 16:17 | NUR ---
TOLD PT HE WAS BEING DC AND HE SAID HE CANT GET A RIDE UNTIL IN THE MORNING. CALLED DR WINSLOW OFFICE SPOKE WITH DR KEYS TO LET HIM KNOW. WILL CTM
--- NOTE | 2019-09-21 19:33 | NUR ---
EVENING ROUNDS COMPLETED. VSS, WITH O2SAT 94 OM 5L. AAOX4, NO S/S OF RT DISTRESS. RR EVEN AND UNLABORED. PT STATES HE IS FEELING BETTER AND READY TO GO HOME IN THE AM. O2 AT BEDSIDE, HOME CPAP AT BEDSIDE. PT DENIES ANY FURTHER NEEDS AT THIS TIME. WILL CPOC. CL WITHIN REACH, BED IN LOW, SR UP X2.
[2019-09-22 04:00] VITALS: BP 138/64
--- NOTE | 2019-09-22 07:41 | NUR ---
PT RESTING. DENIES NEEDS OR PAIN AT THIS TIME. PT STATES HIS RIDE WILL BE HERE AROUND 0930. RR EVEN AND UNLABORED ON 5L NC. IV NOTED TO RIGHT HAND, SL. BED IN LOWEST POSITION. CALL LIGHT WITHIN REACH. WILL CONTINUE TO MONITOR.
[2019-09-22 08:27] VITALS: BP 126/62
--- NOTE | 2019-09-22 08:39 | NUR ---
UPON WALKING INTO ROOM TO GIVE MEDICATION, PT STATED HE DID NOT WANT THEM AT THIS TIME, HE WOULD TAKE THEM WHEN HE GOT HOME.
--- NOTE | 2019-09-22 09:07 | MORECARE ---
CASE MANAGEMENT DISCHARGE SUMMARY PATIENT: RIVERA PHILLIPS UNIT: [id number] ADM DATE: 09/14/19 AGE: 69 : [birth year] SEX: M ROOM/BED: D.2110 AUTHOR: SUSHMA CODY PHYSICIAN: REFERRING PHYSICIAN: JOSUE PERES MD DATE OF SERVICE: 09/22/19 Discharge Plan Patient Name: RIVERA PHILLIPS Facility: [facility]:[place] : 1950 Planned Disposition: Home Anticipated Discharge Date: 09/22/19 Discharge Date: Expected LOS: 8 Initial Reviewer: [email or web address] Initial Review Date: 09/20/2019 Generated: 09/22/19 10:07 am Comments DCP- Discharge Planning Updated by [email or web address]: Ramiro George on 09/21/19 10:[address] Patient Name: RIVERA PHILLIPS Encounter No: [id number] : 1950 Primary Insurance: MEDICARE A & B Anticipated DC Date: Planned Disposition: Home DCP follow-up note: CM RECEIVED ORDER FOR HOME OXYGEN TESTING; ORDER FOR RESPIRATORY THERAPY TESTING RECEIVED. PT HAS PREVIOUSLY SIGNED CONSENT FOR [employer] [facility], [facility] IS WORKING ON TRILOGY. CM SPOKE TO PT IN ROOM, PT IN AGREEMENT WITH USING [facility] FOR ENTIRE ORDER. CM CALLED [employer] , SPOKE TO CAMILO AND PROVIDED REFERRAL INFORMATION. CM FAXED REFERRAL TO [facility] . [facility] TO PROCESS REFERRAL FOR TRILOGY MACHINE AND HOME / PORTABLE OXYGEN. CM WAITING [facility] TO PROCESS TRILOGY MACHINE ORDER AND TO DELIVER PORTABLE OXYGEN TO HOSPITAL ROOM FOR PT'S DISCHARGE HOME TODAY. [facility] TO ARRANGE HOME OXYGEN DELIVERY WITH PT AFTER HIS ARRIVAL AT HOME. Residential Carpet Installer: Ramiro George DCP- Discharge Planning Updated by [email or web address]: Ramiro George on 09/20/19 4:[address] Patient Name: RIVERA PHILLIPS Admission Status: ER Accout number: [id number] Admission Date: 09-14-2019 : 1950 Admission Diagnosis: Attending: JOSUE PERES Current LOS: 6 Anticipated DC Date: Planned Disposition: Home Primary Insurance: MEDICARE A & B Discharge Planning Comments: CM RECEIVED ORDER FOR TRILOGY MACHINE. CM MET WITH PT IN ROOM TO DISCUSS DISCHARGE PLANNING AND NEEDS. PT REPORTS LIVING AT HOME INDEPENDENTLY WITH . PT HAS CANE, NEBULIZER AND WALKER FROM [employer]. PT HAS NO OUTSIDE SERVICES ASSISTING IN THE HOME. CM DISCUSSED AVAILABILITY OF HOME HEALTH, REHAB SERVICES AND MEDICAL EQUIPMENT. PT DOES WANT THE TRILOGY AND HAS NO PREFERENCE ON PROVIDER,, CHOICE COMPELTED. PT DOES NOT WANT [place]IT [place]. PT REPORTS HIS DAUGHTER WILL PICK HIM UP FOR DISCHARGE HOME. IMPORTANT MESSAGE FROM MEDICARE PROVIDED AND EXPLAINED. CM CALLED [facility], , SPOKE TO REED AND PROVIDED REFERRAL INFORMATION. CM FAXED REFERRAL TO [facility], . [facility] TO PROCESS REFERRAL FOR TRILOGY MACHINE SOON POSSIBLE. CM WAITING [facility] TO PROCESS TRILOGY MACHINE ORDER. Residential Carpet Installer: Ramiro George DCPIA - Discharge Planning Initial Assessment Updated by [email or web address]: Ramiro George on 09/20/19 4:57 pm * Is the patient Alert and Oriented? Yes * How many steps to enter\exit or inside your home? * PCP DR. ERAZO * Pharmacy [facility] [address] * Preadmission Environment Home with Family * ADLs Independent * Equipment Cane Nebulizer Walker * Other Equipment [facility]LY [facility] - PROVIDER * List name and contact numbers for known caregivers / representatives who currently or will assist patient after discharge: MITESH GALLAGHER DTR, * Verbal permission to speak to the caregivers and representatives has been obtained from the patient. N/A * Community resources currently utilized None * Please name any agencies selected above. NONE * Additional services required to return to the preadmission environment? Yes * Can the patient safely return to the preadmission environment? Yes * Has this patient been hospitalized within the prior 30 days at any hospital? No Coverage Notice Reviewer: [id number] Neil George Notice Issued Date-Time: 09/20/2019 8:20 Notice Type: IM Discharge Notice Notice Delivered To: Patient Relationship to Patient: Medical Sonographer Name: Delivery Method: HAND - Hand Delivered Jen Days: Prior Verbal Notification: Recipient Understood Notice: Yes Recipient Signature: Yes Med Rec Note Co-signed by Attending: Coverage Notice Comment: Reviewer: IRVIN George Notice Issued Date-Time: 09/20/2019 8:20 Notice Type: Patient Choice Letter Notice Delivered To: Patient Relationship to Patient: Medical Sonographer Name: Delivery Method: HAND - Hand Delivered Jen Days: Prior Verbal Notification: Recipient Understood Notice: Yes Recipient Signature: Yes Med Rec Note Co-signed by Attending: Coverage Notice Comment: NO MEDICAL EQUIPMENT PROVIDER PREFERENCE. Reviewer: [email or web address] Neil George Notice Issued Date-Time: 09/21/2019 14:40 Notice Type: Patient Choice Letter Notice Delivered To: Patient Relationship to Patient: Medical Sonographer Name: Delivery Method: HAND - Hand Delivered Jen Days: Prior Verbal Notification: Recipient Understood Notice: Yes Recipient Signature: Yes Med Rec Note Co-signed by Attending: Coverage Notice Comment: REFUSED HOME HEALTH Last DP export: 09/21/19 10:50 am Patient Name: RIVERA PHILLIPS Page 17550 at 0907 All edits/amendments must be made on the electronic document DICTATION DATE: 09/22/19906 INFORMATICIST: TERRY 09/22/19906 RPT#: [id number] DC DATE: STATUS: ADM IN [facility] [address] [place] [address] END OF REPORT
--- NOTE | 2019-09-22 09:54 | NUR ---
Nutrition Follow-up: Eating well. States he is being d/c'd soon. Diet: Regular, Ensure TID PO intake: 82% avg x 7 meals Wt: 170# (09/18) Last BM: 09/22 Labs reviewed Meds noted: Prednisone, Humulin, NS @ 50 -Continue current diet as tolerated. -Need new wt; noted daily wts ordered. -RD following.
--- NOTE | 2019-09-22 10:25 | NUR ---
SON PRESENT IN ROOM. IV D/C WITH CATHETER TIP INTACT. PT SHOWED ME PROPER TECHNIQUE OF USING HOME OXYGEN TANK. D/C INSTRUCTIONS REVIEWED WITH PT AND SON, VERBALIZED UNDERSTANDING AND NO FURTHER QUESTIONS AT THIS TIME. PT LEFT VIA WHEELCHAIR TO PERSONAL VEHICLES WITH ALL BELONGINGS.
--- NOTE | 2019-09-22 15:32 | MORECARE ---
CASE MANAGEMENT DISCHARGE SUMMARY PATIENT: RIVERA PHILLIPS UNIT: [id number] ADM DATE: 09/14/19 AGE: 69 : [birth year] SEX: M ROOM/BED: D.2110 AUTHOR: ESCOBAR,DOC PHYSICIAN: REFERRING PHYSICIAN: JOSUE PERES MD DATE OF SERVICE: 09/22/19 Discharge Plan Patient Name: RIVERA PHILLIPS Facility: [facility]:[place] : 1950 Planned Disposition: Home Anticipated Discharge Date: 09/22/19 Discharge Date: 09/22/2019 Expected LOS: 8 Initial Reviewer: [id number] Initial Review Date: 09/20/2019 Generated: 09/22/19 4:32 pm Comments DCP- Discharge Planning Updated by [email or web address]: Ramiro George on 09/22/19 2:[address] Patient Name: RIVERA PHILLIPS Encounter No: [id number] : 1950 Primary Insurance: MEDICARE A & B Anticipated DC Date: 09-22-2019 Planned Disposition: Home DCP follow-up note: LATE ENTRY FROM 09-21-18 AT ABOUT 1445 HOURS: CM RECEIVED ORDER FOR HOME HEALTH, MET WITH PT IN ROOM AND DISCUSSED HOME HEALTH SERVICES. PT REFUSED. PT SIGNED REFUSAL FOR HOME HEALTH. BARB Caballero DCP- Discharge Planning Updated by [email or web address]: Ramiro George on 09/21/19 10:[address] Patient Name: RIVERA PHILLIPS Encounter No: [id number] : 1950 Primary Insurance: MEDICARE A & B Anticipated DC Date: Planned Disposition: Home DCP follow-up note: CM RECEIVED ORDER FOR HOME OXYGEN TESTING; ORDER FOR RESPIRATORY THERAPY TESTING RECEIVED. PT HAS PREVIOUSLY SIGNED CONSENT FOR [employer] [facility]REFERENCE, [facility] IS WORKING ON TRILOGY. CM SPOKE TO PT IN ROOM, PT IN AGREEMENT WITH USING [employer] FOR ENTIRE ORDER. CM CALLED [employer], , SPOKE TO CAMILO AND PROVIDED REFERRAL INFORMATION. CM FAXED REFERRAL TO [employer], . [facility] TO PROCESS REFERRAL FOR TRILOGY MACHINE AND HOME / PORTABLE OXYGEN. CM WAITING [facility] TO PROCESS TRILOGY MACHINE ORDER AND TO DELIVER PORTABLE OXYGEN TO HOSPITAL ROOM FOR PT'S DISCHARGE HOME TODAY. [facility] TO ARRANGE HOME OXYGEN DELIVERY WITH PT AFTER HIS ARRIVAL AT HOME. Larriman Helper: Ramiro George DCP- Discharge Planning Updated by [email or web address]: Ramiro George on 09/20/19 4:[address] Patient Name: RIVERA PHILLIPS Admission Status: ER Accout number: [id number] Admission Date: 09-14-2019 : 1950 Admission Diagnosis: Attending: JOSUE PERES Current LOS: 6 Anticipated DC Date: Planned Disposition: Home Primary Insurance: MEDICARE A & B Discharge Planning Comments: CM RECEIVED ORDER FOR TRILOGY MACHINE. CM MET WITH PT IN ROOM TO DISCUSS DISCHARGE PLANNING AND NEEDS. PT REPORTS LIVING AT HOME INDEPENDENTLY WITH . PT HAS CANE, NEBULIZER AND WALKER FROM [employer]. PT HAS NO OUTSIDE SERVICES ASSISTING IN THE HOME. CM DISCUSSED AVAILABILITY OF HOME HEALTH, REHAB SERVICES AND MEDICAL EQUIPMENT. PT DOES WANT THE TRILOGY AND HAS NO PREFERENCE ON PROVIDER,, CHOICE COMPELTED. PT DOES NOT WANT TO WAIT FOR [place] PROCESSING OF WEEKS FOR EQUIPMENT. PT REPORTS HIS DAUGHTER WILL PICK HIM UP FOR DISCHARGE HOME. IMPORTANT MESSAGE FROM [employer] PROVIDED AND EXPLAINED. CM CALLED [facility], , SPOKE TO REED AND PROVIDED REFERRAL INFORMATION. CM FAXED REFERRAL TO [facility], . [facility] TO PROCESS REFERRAL FOR TRILOGY MACHINE SOON POSSIBLE. CM WAITING [facility] TO PROCESS TRILOGY MACHINE ORDER. Larriman Helper: Ramiro George DCPIA - Discharge Planning Initial Assessment Updated by [id number]: Ramiro George on 09/20/19 4:57 pm * Is the patient Alert and Oriented? Yes * How many steps to enter\exit or inside your home? * PCP DR. ERAZO * Pharmacy [facility] [address] * Preadmission Environment Home with Family * ADLs Independent * Equipment Cane Nebulizer Walker * Other Equipment [employer] - PROVIDER * List name and contact numbers for known caregivers / representatives who currently or will assist patient after discharge: MITESH GALLAGHER DTR, * Verbal permission to speak to the caregivers and representatives has been obtained from the patient. N/A * Community resources currently utilized None * Please name any agencies selected above. NONE * Additional services required to return to the preadmission environment? Yes * Can the patient safely return to the preadmission environment? Yes * Has this patient been hospitalized within the prior 30 days at any hospital? No Coverage Notice Reviewer: IRVIN George Notice Issued Date-Time: 09/20/2019 8:20 Notice Type: IM Discharge Notice Notice Delivered To: Patient Relationship to Patient: Artificial Breeding Technician Name: Delivery Method: HAND - Hand Delivered Jen Days: Prior Verbal Notification: Recipient Understood Notice: Yes Recipient Signature: Yes Med Rec Note Co-signed by Attending: Coverage Notice Comment: Reviewer: IRVIN George Notice Issued Date-Time: 09/20/2019 8:20 Notice Type: Patient Choice Letter Notice Delivered To: Patient Relationship to Patient: Artificial Breeding Technician Name: Delivery Method: HAND - Hand Delivered Jen Days: Prior Verbal Notification: Recipient Understood Notice: Yes Recipient Signature: Yes Med Rec Note Co-signed by Attending: Coverage Notice Comment: NO MEDICAL EQUIPMENT PROVIDER PREFERENCE. Reviewer: IRVIN George Notice Issued Date-Time: 09/21/2019 14:40 Notice Type: Patient Choice Letter Notice Delivered To: Patient Relationship to Patient: Artificial Breeding Technician Name: Delivery Method: HAND - Hand Delivered Jen Days: Prior Verbal Notification: Recipient Understood Notice: Yes Recipient Signature: Yes Med Rec Note Co-signed by Attending: Coverage Notice Comment: REFUSED HOME HEALTH Last DP export: 09/22/19 8:07 am Patient Name: RIVERA PHILLIPS Page [phone] at 1532 All edits/amendments must be made on the electronic document DICTATION DATE: 09/22/19 1532 SEPARATOR OPERATOR: TERRY 09/22/19 1532 RPT#: [id number] DC DATE:09/22/19 STATUS: DIS IN [facility] [address] [place] [address] END OF REPORT
== END 2019-09-22 10:31 | disposition home or self-care (01) | DRG 193 ==
LOC: D.ER 03:54 → D.M2 05:46
PROVIDERS: Family Medicine; ADMIT Family Medicine; ATTEND Family Medicine
PROC: 5A09557 Assistance with Respiratory Ventilation, Greater than 96 Consecutive Hours, Continuous Positive Airway Pressure (ICD-10-PCS; principal; 2019-09-14)
DX: J18.9 Pneumonia, unspecified organism (principal); J96.02 Acute respiratory failure with hypercapnia; J96.01 Acute respiratory failure with hypoxia; J44.1 Chronic obstructive pulmonary disease with (acute) exacerbation; F17.213 Nicotine dependence, cigarettes, with withdrawal; J44.0 Chronic obstructive pulmonary disease with (acute) lower respiratory infection; I10 Essential (primary) hypertension; K57.90 Diverticulosis of intestine, part unspecified, without perforation or abscess without bleeding; K44.9 Diaphragmatic hernia without obstruction or gangrene; N40.0 Benign prostatic hyperplasia without lower urinary tract symptoms; F41.8 Other specified anxiety disorders; Z86.73 Personal history of transient ischemic attack (TIA), and cerebral infarction without residual deficits

== ENCOUNTER 2020-01-14 10:05 | Inpatient (IN) | payer MEDICARE ==
[~2020-01-14] VITALS: Ht 175.3 cm; Wt 119.2 kg
[2020-01-14] VITALS (53 sets, daily range): BP systolic 70–133; BP diastolic 45–85; BMI 34.5
--- NOTE | ~2020-01-14 | HEMODYNAMI ---
PATIENT:RIVERA PHILLIPS MEDICAL RECORD: [id number] : [birth year] LOCATION:[facility] D.230 ADMISSION DATE: 01/14/20 Generatedon:01/20/202017:19 Patient name: RIVERA PHILLIPS Patient #: [id number] SSN: : 1950 Date of study: 01/20/2020 Page: Of Hemodynamic Procedure Report Patient Data Patient Demographics Procedure consent was obtained First Name: RIVERA Gender: Male Last Name: JACQUELINE : 1950 [facility] Initial: E Age: 69 year(s) Patient #: [id number] Race: Unknown Additional ID: [id number] Contact details [address]: [address] [place] [address] DRIVE [place] [facility] Zip code: [address] Past Medical History Allergies Allergen Reaction Date Comments Reported Other allergy 01/20/2020 sesame seeds, mold, pcn Admission Admission Data Admission Date: 01/14/2020 Admission Time: 11:27 Room #: D2306 Procedure Procedure Types Cath Procedure Peripheral Cath Diagnostic Procedure Miscellaneous Chest Tube Placement Procedure Description Procedure Date Procedure Date: 01/20/2020 Procedure Start Time: 16:59 Procedure Staff Name Function Joseph Jones MD Performing Physician ALEXANDR CASTANO RT Monitor Sacha Moon RT Scrub Tuyet Alanis RN Nurse Procedure Data Cath Procedure Fluoroscopy Diagnostic fluoroscopy Total fluoroscopy Time: 0.9 time: 0.9 min min Contrast Material Contrast Material Type Amount (ml) Isovue 300 10 Procedure Medications Medication Administration Route Dosage Fentanyl I.V. 25 mcg TPA 4 mg Hemodynamics Rest Heart Rate: 79 (bpm) Snapshots Pre Cath Intra NCS Post Cath Vital Signs Time Heart Resp SPO2 etCO2 NIBP (mmHg) Rhythm Pain Sedation Rate (ipm) (%) (mmHg) Status Level (bpm) 16:55:08 77 26 99 22.5 Measuring NSR 0 (11) 10(A) , No pain 16:56:01 80 26 99 22.5 175/62(116) NSR 0 (11) 10(A) , No pain 17:00:27 72 26 99 21 123/108(118) NSR 0 (11) 10(A) , No pain 17:05:26 74 26 100 20.3 Measuring NSR 0 (11) 10(A) , No pain 17:06:36 72 22 99 20.3 136/95(129) NSR 0 (11) 10(A) , No pain 17:10:38 75 25 100 21 101/71(87) NSR 0 (11) 10(A) , No pain 17:14:39 98 0 130/98(119) NSR 0 (11) 10(A) , No pain 17:18:39 0 No Cuff NSR 0 (11) 10(A) , No pain Medications Time Medication Route Dose Verified Delivered Reason Notes Effectivene ss by by 16:59:42 Fentanyl I.V. 25 Joseph Bnez for mcg Zeke Jones RN sedation 17:18:32 TPA chest 4 mg Joseph Benz tube Zeke Jones RN, MD Procedure Log Time Note 16:39:46 Tuyet Alanis RN sent for patient. Start room use. 16:39:47 Time tracking: Regular hours (M-F 7:00 - 5:00) 16:39:53 Plan of Care:Hemodynamics will remain stable., Cardiac rhythm will remain stable., Comfort level will be maintained., Respiratory function will remain adequate., Patient/ family verbilizes understanding of procedure., Procedure tolerated without complication., Recovers from procedure without complications.. 16:39:58 Patient received from ICU to IR Alert and oriented. Tansferred to table in Supine position. 16:40:00 Signed procedure consent form obtained from patient. 16:40:01 Warm blankets applied, and didier hugger turned on for patient comfort. 16:40:01 Correct patient and procedure confirmed by team. 16:40:02 ECG and BP/O2 sat monitors applied to patient. 16:40:03 - 16:40:08 H&P Date Dictated: 01/20/2020 Within 30 days and on chart.. 16:40:09 Pre-procedure instructions explained to patient. 16:40:10 Pre-op teaching completed and patient verbalized understanding. 16:40:12 Patient NPO since Midnight. 16:40:28 Patient allergic to Other allergysesame seeds, mold, pcn 16:45:56 Is patient on blood thinner?No 16:46:05 Patient diabetic? No. 16:46:07 - 16:46:08 ----Pre-sedation anethsthesia assessment.---- 16:46:10 Previous problem with sedation/anesthesia? No ? 16:46:13 Snore? Yes 16:46:15 Sleep apnea? No 16:46:17 Deviated septum? No 16:46:19 Opens mouth fully? Yes 16:46:21 Sticks out tongue? Yes 16:46:24 Airway obstruction? No ? 16:46:27 Dentures? No ? 16:46:42 IV patent on arrival in right IJ with 0.45%NaCl at [facility]. 16:47:02 Right chest area was prepped with chlora-prep and draped in sterile fashion 16:47:03 Alarms reviewed by Dwaine Shane 16:47:03 Sharps counted by scrub and verified by R.N. 16:47:04 - 16:47:14 Use device set IR Diagnostic 16:47:15 Bag Decanter (2002S) opened to sterile field. 16:47:16 Sterile Angiographic Pack opened to sterile field. 16:47:16 Tegaderm 4 x 4 (1626W) opened to sterile field. 16:53:19 Vital chart was started 16:53:20 Baseline sample Acquired. 16:53:21 Full Disclosure recording started 16:53:24 - 16:55:10 STOPCOCK 3-Way Large Bore ([id number]) opened to sterile field. 16:55:20 Physician arrived 16:55:27 --------ALL STOP TIME OUT------ 16:55:28 Final Timeout: patient, procedure, and site verified with staff and physician. All members of the team are in agreement. 16:55:31 Right chest site verified by team. 16:55:34 Fire Safety Assessment: A--An alcohol-based skin anteseptic being used preoperatively., C--Open oxygen or nitrous oxide is being used. 16:57:00 Procedure started. 16:59:42 Fentanyl 25 mcg I.V. was administered by Tuyet Alanis RN; for sedation; Verbal order read back and verified. 16:59:42 Local anesthetic to Right Chest area with Lidocaine 1% by Joseph Jones MD.INITIAL ACCESS ONLY 17:00:05 AMPLATZ Super stiff 180cm wire ([id number]) opened to sterile field. 17:00:33 Cook MULTIPURPOSE 18FR Drainage Catheter ([id number]) opened to sterile field. 17:05:36 Drain bag connector([id number]) opened to sterile field. 17:08:01 2-0 Silk 685H opened to sterile field. 17:11:47 Procedure ended.(Physican Out) 17:13:08 Fluoroscopy time 00.90 minutes. 17:13:12 Dose Area Product 61 mGy/cm. 17:13:15 Contrast amount:Isovue 300 10ml. 17:13:17 Sharps counted by scrub and verified by R.N. 17:13:22 Insertion/operative site no bleeding no hematoma. 17:13:28 Post-op/insertion site Right Chest area dressed using a 4 x 4 and Tegaderm. 17:13:33 Post procedure instruction explained to patient.Patient verbalizes understanding. 17:13:35 Procedure and supply charges have been captured, reviewed, submitted an d are correct. 17:18:32 TPA 4 mg chest tube was administered by Tuyet Alanis RN; ; Verbal order read back and verified. 17:18:52 Vital chart was stopped 17:19:00 Patient transfered to ICU with Bed. Device Usage Item Name Manufacture Quantity Catalog Hospital Part Current [facility] Lot# / Number Charge Number Stock Stock Serial# Code Bag Decanter Microtek 1 [id number] 82043 [id number] 5 () Medical Inc. Sterile Cardinal 1 [id number] 081799 296619 5 Angiographic Pack Health Tegaderm 4 x 4 3M 1 1626W 797465 401211 [id number] 5 (1626W) STOPCOCK 3-Way [employer] 1 I71689 259958 7205 837092 5 Large Bore ([id number]) AMPLATZ Super Alpine 1 [id number] 170967 437586 758179 5 stiff 180cm wire Scientific ([id number]) Cook MULTIPURPOSE [employer] 1 I26673 347791 699988 5 [id number] 18FR Drainage Catheter (L60149) Drain bag [employer] 1 L01788 189750 798682 2206868 5 [id number] connector(C02853) 2-0 Silk 685H Ethicon 1 685H 796976 70129 889608 5 Signature Audit Greer Stage Time Signature Unsigned Intra-Procedure 01/20/2020 ALEXANDR CASTANO RT 5:19:17 PM (R) [id number] [place] [address]
[~2020-01-14 10:05] MED LIST changes: +FLUTICASONE PRO16 GM NASAL; +MUCINEX600 MG; +MUCINEX600 MG PO
[2020-01-14 10:48] LABS: BACTERIA MODERATE /hpf (NEGATIVE); BILIRUBIN NEGATIVE (NEGATIVE); EPITHELIAL CELLS 0-5 /hpf (0-5); GLUCOSE NEGATIVE (NEGATIVE); KETONE NEGATIVE (NEGATIVE); NITRITE NEGATIVE (NEGATIVE); RED CELLS - URINE NONE SEEN /hpf (0-5); SPECIFIC GRAVITY 1.015 (1.005-1.020); UROBILINOGEN NORMAL (NORMAL)
[2020-01-14 10:50] LABS: UDS - AMPHET NEGATIVE QUAL (NEGATIVE); UDS - BARB NEGATIVE QUAL (NEGATIVE); UDS - BENZO NEGATIVE QUAL (NEGATIVE); UDS - COCAINE NEGATIVE QUAL (NEGATIVE); UDS - OPIATE NEGATIVE QUAL (NEGATIVE); UDS - PCP NEGATIVE QUAL (NEGATIVE); UDS - THC NEGATIVE QUAL (NEGATIVE)
[2020-01-14 11:03] LABS: HEMATOCRIT 43.5 % (42.0-54.0); HEMOGLOBIN 12.8 g/dL (13.5-17.5); MCH 32.5 pg (26.0-34.0); MCHC 29.4 g/dL (31.0-37.0); MCV 110.4 fL (80.0-100.0); MEAN PLATELET VOLUME 11.1 fL (7.4-10.4); PLATELET COUNT 301 10x3/uL (130-400); RBC 3.94 10x6/uL (4.20-6.10); RDW 14.3 % (11.5-14.5); WBC 28.9 10x3/uL (4.8-10.8)
[2020-01-14 11:11] LABS: APTT 27.7 SECONDS (22.8-39.4); INR 0.99 (0.85-1.17)
[2020-01-14 11:23] LABS: ALBUMIN 1.9 g/dL (3.4-5.0); ALKALINE PHOSPHATASE 75 U/L (30-120); ALT (SGPT) 14 U/L (10-68); BILIRUBIN - TOTAL 0.17 mg/dL (0.2-1.3); CALCIUM 9.4 mg/dL (8.5-10.1); CHLORIDE - SERUM 102 mmol/L (98-107); CREATINE KINASE 41 UL (21-232); CREATININE - SERUM 0.9 mg/dL (0.6-1.3); MAGNESIUM - SERUM 2.1 mg/dL (1.8-2.4); POTASSIUM - SERUM 4.8 mmol/L (3.5-5.1); PRO BNP 2526 pg/mL (0-125); PROTEIN - SERUM 7.6 g/dL (6.4-8.2); SODIUM 143 mmol/L (136-145); THYROID STIMULATING HORMONE 0.33 uIU/mL (0.36-3.74); TROPONIN-I < 0.017 ng/mL (0.000-0.060); UREA NITROGEN 21 mg/dL (7-18); eGFR NON AFRICAN AMERICAN 89 mL/min (90-120)
[2020-01-14 11:33] LABS: LYMPHOCYTES 8 % (15-50); MONOCYTES 8 % (2-11); NEUTROPHILS 77 % (40-80); PLATELET ESTIMATE NORMAL; TOXIC GRANULATION 1+
[2020-01-14 11:39] LABS: CALC OSMOLALITY 290 mosm/kg (275-300); GLUCOSE 157 mg/dL (74-106)
[2020-01-14 11:40] LABS: CARBON DIOXIDE 42.2 mmol/L (21.0-32.0)
--- NOTE | 2020-01-14 12:37 | NUR ---
PT ARRIVED TO UNIT AT THIS TIME FROM ER VIA BED ACCOMPANIED BY HOSPITAL STAFF. BP 72/45, HEART RATE 89 SINUS WITH PAC. LEVOPHED TURNED ON, SEE IV FLOWSHEET.
--- NOTE | 2020-01-14 12:43 | NUR ---
NOREPI STOPPED PRIOR TO TRANSPORT TO ICU
--- NOTE | 2020-01-14 13:49 | NUR ---
INCONTINENT BOWEL MOVEMENT NOTED AT THIS TIME, TOTAL LINEN CHANGE AND SAGAR CARE PROVIDED. TURNED Q2H. ORAL CARE PROVIDED Q2H. WILL CONTINUE PLAN OF CARE.
[2020-01-14 14:24] LABS: C-REACTIVE PROTEIN 31.3 mg/dL (0.0-0.9)
--- NOTE | 2020-01-14 14:38 | NUR ---
PER DR AMOS, RUN BANANNA BAG AT 150ML/HR AND WHEN THAT IS COMPLETE THEN RUN NS AT 150ML/HR. ALSO IF LEVOPHED INCREASED OVER 20MCG THEN CAN START VASOPRESSIN.
--- NOTE | 2020-01-14 15:01 | NUR ---
DR MATA NOTIFIED OF CONSULT, STATED WILL BE BY IN A LITTLE BIT TO SEE PT.
--- NOTE | 2020-01-14 16:01 | NUR ---
SPOKE WITH DR MISHRA, ORDERS RECIEVED FOR XIFAXIN, LACTULOSE, CTA CHEST PE PROTOCOL, AND CT HEAD. WILL PLACE ORDERS.
--- NOTE | 2020-01-14 16:22 | NUR ---
RUN OF [facility] NOTED, PT CONVERTED ON OWN. DR BANKS CALLED TO NOTIFY, NO ANSWER RECIEVED. WILL ATTEMPT AGAIN.
--- NOTE | 2020-01-14 16:25 | NUR ---
FACIAL GRIMACING NOTED TO DISCOMFORT.
--- NOTE | 2020-01-14 16:29 | NUR ---
RECIEVED CALLBACK FROM DR BANKS, STATED TO RECHECK POTASSIUM AND MAGNESIUM LEVELS AND CONSULT CARDIOLOGY.
--- NOTE | 2020-01-14 16:31 | NUR ---
DR JEANNE MONET.
--- NOTE | 2020-01-14 16:36 | NUR ---
SPOKE WITH DR ANGEL, ORDERS RECIEVED FOR AMIODARONE GTT AND ECHO.
[2020-01-14 16:57] LABS: MAGNESIUM - SERUM 2.2 mg/dL (1.8-2.4)
--- NOTE | 2020-01-14 17:34 | NUR ---
TEMP 100.0 ROOM TEMP DECREASED AND BLANKETS REMOVED.
--- NOTE | 2020-01-14 19:02 | NUR ---
HERE AT THIS TIME TO PUT IN CVL PLACEMENT. CONCENT SIGNS WERE SIGNED BEFORE. 1914 SUCCESSFULLY PUT IN LEFT IJ, PT TOLERATED WELL. VSS. WILL CALL FOR XRAY TO CONFIRM PLACEMENT.
--- NOTE | 2020-01-14 19:27 | NUR ---
XRAY HERE AT THIS TIME
--- NOTE | 2020-01-14 20:05 | NUR ---
READ THAT CVL LINE IS IN CORRECT PLACEMENT PER RADIOLOGIST
--- NOTE | 2020-01-14 21:18 | NUR ---
PT IS RESTING IN BED INTUBATED/SEDATED. VSS. RESTRAINTS OBSERVED AND RELEASED AND PUT BACK ON PER PROTOCOL. ORAL CARE PROVIDED. REPOSITIONED FOR COMFORT, BRIDGED HEELS OFF BED. BED IS LOW,SIDE RAISLX2,CALL LIGHT WITHIN REACH. WILL CONITNUE TO MONITOR
--- NOTE | 2020-01-14 22:02 | NUR ---
PT CARLI CALLED AND PROVIDED PASS CODE CORRECTLY TO TWO NURSES. UPDATED HER ABOUT PT STATUS.
--- NOTE | 2020-01-14 22:30 | NUR ---
GIVING HCG BATH AT THIS TIME. PT TOLERATED WELL. HE ALSO HAD LARGE DARK BROWN LOOSE BM. ALL LINENES WERE CHANGED AND PROVIDED NEW GOWN. VSS. RESTRAINTS RELEASED AND PUT BACK ON AFTER FINISHED. PT SKIN WAS VERY GROSS C LOTS OF TRIED DIRT AND DRY SKIN PATHCES. HIS BOTTOM LOOKS GOOD WITH NO REDENSS OR SORES. BLUM CATHETOR WAS CLEANED WELL. BE IS LOW, SIDE RAILSX2,CALL LIGHT WITHIN REACH. WILL CONITNUE TO MONITOR
--- NOTE | 2020-01-14 22:57 | NUR ---
JUST TRANSPORTED PT TO RADIOLOGY IN STABLE CONDITION. PT IS ON A PORTABLE MONITOR TO WATCH VS. STAYING WITH PT WHILE GETTING CT
--- NOTE | 2020-01-14 23:15 | NUR ---
RETURNED FROM RADIOLOGY WITH PT TO FIND OUT THAT HAD CALLED AND VERBALIZED PER T.O TO PUT PT ON COVID ISOLATION AND TO TEST HIM. PT IS STABLE. VSS. INTUABTED/SEDATED MOVING TO ROOM 3069.
[2020-01-15] VITALS (44 sets, daily range): BP systolic 98–138; BP diastolic 55–81
--- NOTE | 2020-01-15 00:15 | NUR ---
PT IS RESTING IN BED INTUBATED/SEDATED. PUT ON ALL PROPER PPE FOR POSSIBLE COVID ISOLATION. ADMINISTERING SHCHEDULED MEDS AND GOING TO PERFORM COVID TEST AND SEND TO LAB. VSS. PT TOLERATED WELL BUT SQUINTED EYES AND FACE WHEN DOING COVID SWAB BUT QUICKLY RELAXED WHEN FINISHED. PERFORMED ORAL CARE WHILE IN ROOM AND REPOSITIONED FOR COMFORT WITH HEELS BRIDGED OFF BED. RESTRAINTS OBSERVED. BED IS LOW,SIDE RAISLX2,CALL LIGHT WIHTIN REACH.
--- NOTE | 2020-01-15 02:38 | NUR ---
PT IS RESTING INTUBATED/SEDATED. VSS. PUT ON ALL PPE AND WENT INTO TO ADMINISTER SCHEDULED MED. DOCUMENTED ON NOV. I ALSO PERFORMED ORAL CARE AT THIS TIME. D/C'S ALL 3 PERIPHERAL IV'S WITH CATHETOR INTACT. ALL HAD LITTLE BLEEDING AND I HELD PRESSURE FOR 10 SECONDS AND BLEEDING STOPED. SITES ARE CLEAR OF S/S OF INFECTION OR INFILTRATION. PT HAS CVL FOR IV MEDS. REPOSITIONED FOR COMFORT AND FEET ARE BRIDGED OFF BED. PT TOLERATED WELL. I ALSO DECREASED LEVOPHEN TO 1MCG/MIN AT THIS TIME. WILL CONITNUE TO MONITRO BP. BED IS LOW,SIDE RAILSX2,CALL LIGHT WITHIN REACH.
--- NOTE | 2020-01-15 04:00 | NUR ---
WENT IN TO PT ROOM WITH ALL PPE ON TO DRAW AM LABS AND DO I/O'S. PT IS RESTING INTUBATED/SEDATED. VSS. PERFORMED ORAL CARE AND REPOSITIONED FOR COMFORT. BED IS LOW,SIDE RAILSX2,CALL LIGHT WITHIN REACH. WILL CONINTUE TO MONITOR
[2020-01-15 04:37] LABS: BASOPHILS 0 % (0-2); EOSINOPHILS 0 % (0-7); HEMATOCRIT 33.4 % (42.0-54.0); HEMOGLOBIN 10.1 g/dL (13.5-17.5); IMMATURE GRANULOCYTES 0.5 % (0-5); LYMPHOCYTES 2.4 % (15-50); MCH 31.8 pg (26.0-34.0); MCHC 30.2 g/dL (31.0-37.0); MEAN PLATELET VOLUME 10.7 fL (7.4-10.4); MONOCYTES 1.8 % (2-11); NEUTROPHILS 95.3 % (40-80); PLATELET COUNT 220 10x3/uL (130-400); RBC 3.18 10x6/uL (4.20-6.10); RDW 14.3 % (11.5-14.5); WBC 22.2 10x3/uL (4.8-10.8)
[2020-01-15 04:45] LABS: ALBUMIN 1.5 g/dL (3.4-5.0); ALKALINE PHOSPHATASE 57 U/L (30-120); ALT (SGPT) 14 U/L (10-68); BILIRUBIN - TOTAL 0.28 mg/dL (0.2-1.3); CALC OSMOLALITY 290 mosm/kg (275-300); CALCIUM 8.3 mg/dL (8.5-10.1); CARBON DIOXIDE 37.4 mmol/L (21.0-32.0); CHLORIDE - SERUM 105 mmol/L (98-107); CREATININE - SERUM 0.7 mg/dL (0.6-1.3); GLUCOSE 193 mg/dL (74-106); MAGNESIUM - SERUM 2.1 mg/dL (1.8-2.4); PHOSPHOROUS 3.3 mg/dL (2.5-4.9); PROTEIN - SERUM 5.9 g/dL (6.4-8.2); SODIUM 142 mmol/L (136-145); TROPONIN-I < 0.017 ng/mL (0.000-0.060); UREA NITROGEN 21 mg/dL (7-18); eGFR NON AFRICAN AMERICAN > 90 mL/min (90-120)
[2020-01-15 05:13] LABS: APTT 29.3 SECONDS (22.8-39.4); PROTIME 15.1 SECONDS (11.6-15.0)
[2020-01-15 05:23] LABS: INR 1.19 (0.85-1.17)
--- NOTE | 2020-01-15 07:00 | NUR ---
BEDSIDE REPORT RECEIVED. SHIFT ASSESSMENT COMPLETED PER FLOWSHEET, SEE FLOWSHEET FOR INFORMATION. PT RESTING IN BED WITH EYES CLOSED. SEDATED AND VENTILATED. NO ACUTE NEEDS OR DISTRESS NOTED AT THIS TIME. VSS. WILL CONT TO MONITOR.
--- NOTE | 2020-01-15 09:00 | NUR ---
PT RESTING WITH EYES CLOSED. ORAL CARE GIVEN, COPIOUS AMOUNTS OF THICK WHITE SPUTUM NOTED. VSS. WILL CONT TO MONITOR.
--- NOTE | 2020-01-15 11:00 | NUR ---
ECHO NURSE AT BEDSIDE. PT RESTING IN BED WITH EYES CLOSED. VSS. WILL CONT TO MONITOR.
--- NOTE | 2020-01-15 13:00 | NUR ---
XRAY AT BEDSIDE, ASSISTED TO TURN AND CLEAN PT. NO ACUTE NEEDS OR DISTRESS NOTED AT THIS TIME. VSS. WILL CONT TO MONITOR.
--- NOTE | 2020-01-15 15:00 | NUR ---
PT RESTING IN BED WITH EYES CLOSED. ORAL AND INLINE SUCTIONED. NO ACUTE NEEDS OR DISTRESS NOTED AT THIS TIME. VSS. WILL CONT TO MONITOR.
--- NOTE | 2020-01-15 17:00 | NUR ---
CLEANED PT FROM LARGE LIQUID BM, COMPLETE LINEN CHANGED. NO ACUTE NEEDS OR DISTRESS NOTED AT THIS TIME. VSS. WILL CONT TO MONITOR.
--- NOTE | 2020-01-15 19:00 | NUR ---
HEAD TO TOE ASSESSMENT COMPELTED. PT SEDATED. RESPONDS TO PAIN. DECREASED PROPOFOL DOWN TO 14 MCG. ETT SECURED O2 AT 50%. NGT TO LOW INTERMITTEN SUCTION. VERIFIED PLACEMENT BY AUSCULATATION. NISQUALLY GREEN STOMACH CONTENTS NOTED. BLUM RESENT WITH DARK CONCENTRATED URINE THAT IS PINK TINGED. REPOSITIONED AND PROVIDED ORAL CARE.
--- NOTE | 2020-01-15 21:00 | NUR ---
REPOSITIONED PT FOR COMFORT. PT BRADYCARDIC AND SEDATED. WILL DECREASE PROPOFOL AND WILL CONTINUE TO MONITOR FOR VENT TOLERANCE WITH DECREASED SEDATION.
--- NOTE | 2020-01-15 23:00 | NUR ---
REASSESSMENT COMPLETED. PT CONTINUES TO BE BRADYCARDIC. DECREASED PROPOFOL. PT RESPONDS BY TOUCH. REPOSITIONED AND PROVIDED ORAL CARE.
[2020-01-16] VITALS (28 sets, daily range): BP systolic 105–145; BP diastolic 48–83; BMI 34.3
--- NOTE | 2020-01-16 02:00 | NUR ---
FIRST DEGREE BLOCK NOTED ON MONITOR. CALLED DR VELEZ. UPDATED CONDITION. ORDERS RECIEVED TO HOLD AMIODARONE. WILL CONTINUE TO MONITOR.
[2020-01-16 04:16] LABS: BASOPHILS 0 % (0-2); EOSINOPHILS 0 % (0-7); HEMATOCRIT 33.1 % (42.0-54.0); HEMOGLOBIN 10.4 g/dL (13.5-17.5); IMMATURE GRANULOCYTES 0.4 % (0-5); LYMPHOCYTES 2.6 % (15-50); MCH 32.3 pg (26.0-34.0); MCHC 31.4 g/dL (31.0-37.0); MEAN PLATELET VOLUME 11.6 fL (7.4-10.4); MONOCYTES 2.6 % (2-11); NEUTROPHILS 94.4 % (40-80); PLATELET COUNT 228 10x3/uL (130-400); RBC 3.22 10x6/uL (4.20-6.10); RDW 14.4 % (11.5-14.5); WBC 18.9 10x3/uL (4.8-10.8)
[2020-01-16 04:19] LABS: MCV 102.8 fL (80.0-100.0)
[2020-01-16 04:20] LABS: INR 1.06 (0.85-1.17); PROTIME 13.8 SECONDS (11.6-15.0)
[2020-01-16 04:21] LABS: ALBUMIN 1.5 g/dL (3.4-5.0); ALKALINE PHOSPHATASE 58 U/L (30-120); BILIRUBIN - TOTAL 0.33 mg/dL (0.2-1.3); CALC OSMOLALITY 288 mosm/kg (275-300); CALCIUM 8.2 mg/dL (8.5-10.1); CARBON DIOXIDE 31.6 mmol/L (21.0-32.0); CHLORIDE - SERUM 105 mmol/L (98-107); CREATININE - SERUM 0.7 mg/dL (0.6-1.3); GLUCOSE 176 mg/dL (74-106); MAGNESIUM - SERUM 2.6 mg/dL (1.8-2.4); POTASSIUM - SERUM 3.8 mmol/L (3.5-5.1); PROTEIN - SERUM 6.2 g/dL (6.4-8.2); SODIUM 141 mmol/L (136-145); UREA NITROGEN 24 mg/dL (7-18); eGFR NON AFRICAN AMERICAN > 90 mL/min (90-120)
[2020-01-16 04:30] LABS: ALT (SGPT) 23 U/L (10-68)
--- NOTE | 2020-01-16 13:29 | OP ---
PATIENT NAME: RIVERA PHILLIPS MEDICAL RECORD: [id number] :48 LOCATION:.[facility] D.2312 ADMISSION DATE:01/14/20 SURGEON: AG MATA MD DATE OF OPERATION: 01/14/2020 PREOPERATIVE DIAGNOSES: 1. Hypotension on pressors. 2. Mucus plugging. 3. Ventilatory failure requiring mechanical ventilation. 4. Need of additional IV access and perhaps central access for CVP. POSTOPERATIVE DIAGNOSES: 1. Hypotension on pressors. 2. Mucus plugging. 3. Ventilatory failure requiring mechanical ventilation. 4. Need of additional IV access and perhaps central access for CVP. PROCEDURE: Insertion of left internal jugular triple lumen central venous catheter. SURGEON: Ag Mata MD NURSE PRN: None. BLOOD LOSS: Minimal. ANESTHESIA: Propofol, which is being used for sedation as well as local. A consent form was signed. OPERATIVE COURSE: The patient was seen in his ICU bed. He is critically ill. He was positioned in the Trendelenburg position. The left neck was sterilely prepped and draped. A local anesthetic was used to infiltrate the skin and subcutaneous tissues at the base of left neck. The left internal jugular vein was percutaneously accessed in an antegrade fashion. A guidewire passed easily. A small skin yazan was accomplished. A vessel dilator was used to dilate a subcutaneous tract. A 16-cm triple lumen central venous catheter was inserted to the hub. It was sutured in place times 3. All lumens flushed easily and aspirated dark, nonpulsatile blood. A stat portable chest x-ray is pending. TRANSINT:[id number] Voice Confirmation ID: [id number] DOCUMENT ID: [id number] AG MATA MD at 1329 CC: [id number] DICTATION DATE: 01/14/201939 QUALITY TECHNICIAN FIBERGLASS: 01/14/20 2310 ADM IN [facility] [address] [place] [address]
--- NOTE | 2020-01-16 15:35 | NUR ---
Blanchable redness noted on buttocks/coccyx appears to be from incontinence of stool. Recommended zinc oxide paste be applied daily and with any incontinent episodes. Dry scab noted on toe on right foot. No drainage, redness or odor. Wound care will monitor.
--- NOTE | 2020-01-16 17:15 | NUR ---
BACK FROM IR.
[2020-01-16 18:35] LABS: PROTEIN - BODY FLUID 4.5 G/DL
--- NOTE | 2020-01-16 19:00 | NUR ---
HEAD TO TOE ASSESSMENT COMPELTED.PT RESTING WITH EYES CLOSED. CALM WITH 18 MCG PROPOFOL INFUSING. REPOSITIONED.
--- NOTE | 2020-01-16 21:00 | NUR ---
REPOSITIONED. PROVIDED ORAL CARE.
--- NOTE | 2020-01-16 23:00 | NUR ---
REASSESSMENT CLOMPLETED. NO CHANGES FROM LAST ASSESSMENT. PROVIDED COMPLETE BED BATH AND CLEANED INCONTINENT STOOL.
[2020-01-17] VITALS (23 sets, daily range): BP systolic 104–151; BP diastolic 62–79
--- NOTE | 2020-01-17 03:00 | NUR ---
REASSESSMENT COMPELTED. PT REMAINS CALM ON VENT. REPOSITIONED AND PROVIDED ORAL CARE.
[2020-01-17 04:17] LABS: BASOPHILS 0 % (0-2); EOSINOPHILS 0 % (0-7); HEMATOCRIT 33.1 % (42.0-54.0); HEMOGLOBIN 10.1 g/dL (13.5-17.5); IMMATURE GRANULOCYTES 0.3 % (0-5); LYMPHOCYTES 3.8 % (15-50); MCH 31.8 pg (26.0-34.0); MCHC 30.5 g/dL (31.0-37.0); MCV 104.1 fL (80.0-100.0); MEAN PLATELET VOLUME 11.6 fL (7.4-10.4); MONOCYTES 3.1 % (2-11); NEUTROPHILS 92.8 % (40-80); PLATELET COUNT 219 10x3/uL (130-400); RBC 3.18 10x6/uL (4.20-6.10); RDW 14.4 % (11.5-14.5)
[2020-01-17 04:20] LABS: WBC 10.6 10x3/uL (4.8-10.8)
[2020-01-17 04:38] LABS: ALBUMIN 1.5 g/dL (3.4-5.0); ALKALINE PHOSPHATASE 50 U/L (30-120); ALT (SGPT) 21 U/L (10-68); BILIRUBIN - TOTAL 0.34 mg/dL (0.2-1.3); CALC OSMOLALITY 294 mosm/kg (275-300); CALCIUM 7.8 mg/dL (8.5-10.1); CARBON DIOXIDE 30.4 mmol/L (21.0-32.0); CHLORIDE - SERUM 109 mmol/L (98-107); GLUCOSE 174 mg/dL (74-106); MAGNESIUM - SERUM 2.8 mg/dL (1.8-2.4); POTASSIUM - SERUM 3.8 mmol/L (3.5-5.1); PROTEIN - SERUM 5.8 g/dL (6.4-8.2); SODIUM 144 mmol/L (136-145); UREA NITROGEN 23 mg/dL (7-18)
[2020-01-17 04:39] LABS: CREATININE - SERUM 0.5 mg/dL (0.6-1.3); eGFR NON AFRICAN AMERICAN > 90 mL/min (90-120)
[2020-01-17 04:44] LABS: INR 1.05 (0.85-1.17); PROTIME 13.7 SECONDS (11.6-15.0)
--- NOTE | 2020-01-17 06:00 | NUR ---
PROVIDED BEDBATH AND CLEANED INCONTINENT STOOL.
[2020-01-18] VITALS (24 sets, daily range): BP systolic 95–164; BP diastolic 58–104
[2020-01-18 06:32] LABS: BASOPHILS 0 % (0-2); EOSINOPHILS 0 % (0-7); HEMATOCRIT 33.3 % (42.0-54.0); IMMATURE GRANULOCYTES 0.6 % (0-5); LYMPHOCYTES 4.1 % (15-50); MCH 31.5 pg (26.0-34.0); MEAN PLATELET VOLUME 12.4 fL (7.4-10.4); MONOCYTES 4.5 % (2-11); NEUTROPHILS 90.8 % (40-80); PLATELET COUNT 242 10x3/uL (130-400); RBC 3.17 10x6/uL (4.20-6.10); RDW 14.5 % (11.5-14.5)
[2020-01-18 06:44] LABS: ALBUMIN 1.6 g/dL (3.4-5.0); ALKALINE PHOSPHATASE 46 U/L (30-120); ALT (SGPT) 20 U/L (10-68); BILIRUBIN - TOTAL 0.27 mg/dL (0.2-1.3); CALC OSMOLALITY 295 mosm/kg (275-300); CALCIUM 7.8 mg/dL (8.5-10.1); CARBON DIOXIDE 29.3 mmol/L (21.0-32.0); CHLORIDE - SERUM 112 mmol/L (98-107); CREATININE - SERUM 0.5 mg/dL (0.6-1.3); GLUCOSE 157 mg/dL (74-106); MAGNESIUM - SERUM 2.7 mg/dL (1.8-2.4); POTASSIUM - SERUM 3.7 mmol/L (3.5-5.1); PROTEIN - SERUM 5.5 g/dL (6.4-8.2); SODIUM 145 mmol/L (136-145); UREA NITROGEN 24 mg/dL (7-18); eGFR NON AFRICAN AMERICAN > 90 mL/min (90-120)
[2020-01-18 06:48] LABS: INR 1.04 (0.85-1.17); PROTIME 13.5 SECONDS (11.6-15.0)
--- NOTE | 2020-01-18 08:06 | NUR ---
Nutrition consult for TF: Received consult from Dr. Ellington to start TF. Chart reviewed Pt intubated, sedated with propofol right CT in place Banana Bag @ 150 ml/hr +BM RDN will start Pulmocare @ 25 ml/hr with increase to goal rate of 50 ml/hr. Flush tube with 100 ml H2O q 4 hours while pt on banana bag Thank you for the consult. RDN following.
--- NOTE | 2020-01-18 08:16 | EC ---
PATIENT:RIVERA PHILLIPS DATE OF SERVICE: 01/14/20 SEX: M MEDICAL RECORD: [id number] DATE OF : [birth year] LOCATION:[facility] AGE OF PATIENT: 69 ADMISSION DATE: 01/14/20 REFERRING PHYSICIAN: INTERPRETING PHYSICIAN: SORAYA KLEIN MD ECHOCARDIOGRAM REPORT ECHO CHARGES 5 ECHO LIMITED Date: 01/15/20 CLINICAL DIAGNOSIS: RUN OF V TACH ECHOCARDIOGRAPHIC MEASUREMENTS (adult normal given) AC root (d.<3.7cm) 3.8 cm LV Septum d (<1.2 cm> 1.4 cm Valve Excursion 1.7 cm LV Septum (systole) 1.8 cm Left Atria (s.<4.0cm> 3.5 cm LVPW d(<1.2cm) 1.9 cm RV (d.<2.3cm) 3.7 cm LVPW (sytole) 2.0 cm LV diastole(<5.6CM) 5.0 cm MV E-F(>70mm/sec) cm LV systole 3.5 cm LVOT Diameter cm MV exc.(>10mm) 2.0 cm Est.ejection fraction (50-75%) % DOPPLER: LVIT cm/sec A cm/sec E cm/sec LA cm/sec RVSP 33 mmHg LVOT cm/sec AOP1/2T m/s Asc. Ao cm/sec RVOT cm/sec RA cm/sec PA cm/sec AV Gradient Peak mmHg AV Mean mmHg AV Area cm MV Gradient Peak mmHg MV Mean mmHg MV Area cm COMMENTS: Cash Posting Representative: 2 DAVID GARNICA Inside Wireman: 4 Dr. Moser TAPE# PACS Pericardial Effusion N DATE OF SERVICE: Adequate 2D, color flow imaging, spectral Doppler, and M-Mode. Mild LVH. LV internal dimension is normal. Wall motion is normal. EF is greater than or equal to 55%. Aortic valve is sclerotic. There is no evidence of stenosis by Doppler interrogation. The left atrium is normal at 3.5 cm. Mitral valve shows no prolapse. Trace MR. Right-sided chambers are grossly normal. Mild TR. ECHOCARDIOGRAM REPORT [id number] RIVERA PHILLIPS TRANSINT:[id number] Voice Confirmation ID: [id number] DOCUMENT ID: [id number] SORAYA KLEIN MD at 0816 CC: [id number] DICTATION DATE: 01/16/20 0949 YIELD ANALYST: 01/16/20 1130 ADM IN [facility] [address] [place] [id number]
--- NOTE | 2020-01-18 11:15 | NUR ---
EXTUBATED TO 3L NC.
--- NOTE | 2020-01-18 19:00 | NUR ---
REPORT RECEIVED. PT RESTING IN BED AT THIS TIME, DISORIENTED TO TIME. REORIENTED NEEDED. ASSESSMENT COMPLETED, SEE FLOWSHEET. LT IJ CVL INFUSING, SEE IV FLOWSHEET. WILL CONTINUE TO MONITOR.
--- NOTE | 2020-01-18 21:00 | NUR ---
PT RESTING IN BED, NO ACUTE DISTRESS NOTED.
--- NOTE | 2020-01-18 23:00 | NUR ---
REASSESSMENT COMPLETE, SEE FLOWSHEET.
[2020-01-19] VITALS (24 sets, daily range): BP systolic 113–192; BP diastolic 62–131
--- NOTE | 2020-01-19 01:00 | NUR ---
PT AWAKE AND ALERT, RESTING IN BED. NO ACUTE DISTRESS NOTED.
--- NOTE | 2020-01-19 03:00 | NUR ---
PT IN A-FIB WITH HR OF 120'S. CARDIOLOGY PAGED, SPOKEN WITH OLINDA ARAGON APN. UPDATED ON STATUS, NEW ORDERS RECEIVED.
[2020-01-19 05:34] LABS: BASOPHILS 0.1 % (0-2); EOSINOPHILS 0 % (0-7); HEMATOCRIT 37.7 % (42.0-54.0); HEMOGLOBIN 11.7 g/dL (13.5-17.5); IMMATURE GRANULOCYTES 1.3 % (0-5); LYMPHOCYTES 2.9 % (15-50); MCH 32.5 pg (26.0-34.0); MCV 104.7 fL (80.0-100.0); MEAN PLATELET VOLUME 12.2 fL (7.4-10.4); MONOCYTES 4.2 % (2-11); NEUTROPHILS 91.5 % (40-80); PLATELET COUNT 258 10x3/uL (130-400); RDW 14.4 % (11.5-14.5)
[2020-01-19 05:40] LABS: WBC 16.5 10x3/uL (4.8-10.8)
[2020-01-19 06:06] LABS: INR 0.99 (0.85-1.17)
[2020-01-19 06:23] LABS: ALBUMIN 1.9 g/dL (3.4-5.0); ALKALINE PHOSPHATASE 50 U/L (30-120); ALT (SGPT) 17 U/L (10-68); CALCIUM 7.6 mg/dL (8.5-10.1); CHLORIDE - SERUM 108 mmol/L (98-107); CREATININE - SERUM 0.4 mg/dL (0.6-1.3); GLUCOSE 163 mg/dL (74-106); MAGNESIUM - SERUM 2.2 mg/dL (1.8-2.4); POTASSIUM - SERUM 3.5 mmol/L (3.5-5.1); PROTEIN - SERUM 6.2 g/dL (6.4-8.2); SODIUM 144 mmol/L (136-145); eGFR NON AFRICAN AMERICAN > 90 mL/min (90-120)
[2020-01-19 06:32] LABS: CALC OSMOLALITY 291 mosm/kg (275-300); UREA NITROGEN 15 mg/dL (7-18)
--- NOTE | 2020-01-19 07:30 | NUR ---
REPORT RECEIVED. PT ON O2 AT 4L. WAS EXTUBATED YESTERDAY. PT HAS CHEST TUBE TO RIGHT LATERAL CHEST. PT IS NEEDING SWALLOW EVAL BY SPEECH TODAY. HAS A BLUM. RIGHT IJ WITH NS AND AMIO INFUSING. VSS. WILL CONTINUE TO MONITOR.
--- NOTE | 2020-01-19 09:37 | NUR ---
DR DELGADO ROUNDED AND UPDATED. NO NEW ORDERS AT THIS TIME. WILL CONTINUE TO MONITOR.
--- NOTE | 2020-01-19 12:35 | NUR ---
PT PASSED SWALLOW EVAL. CALLED DIETARY FOR LUNCH TRAY FOR PT.
--- NOTE | 2020-01-19 15:15 | NUR ---
PT RESTING QUIETLY. VSS. NO NEEDS AT THIS TIME.
--- NOTE | 2020-01-19 16:41 | NUR ---
OT NOTE: PT COMPLETED POSITIONING IN BED WITH MOD A. PT COMPLETED UE AROM EXS TOLERATED. [phone] THANK YOU,CORINA ALBERTO
--- NOTE | 2020-01-19 19:00 | NUR ---
REPORT RECEIVED. PT RESTING IN BED, NO ACUTE DISTRESS NOTED. ASSESSMENT COMPLETED, SEE FLOWSHEET. LT IJ CVL INFUSING, SEE IV FLOWSHEET. WILL CONTINUE TO MONITOR.
--- NOTE | 2020-01-19 21:00 | NUR ---
PT RESTING IN BED, NO ACUTE DISTRESS NOTED. WILL CONTINUE TO MONITOR.
--- NOTE | 2020-01-19 23:00 | NUR ---
REASSESSMENT COMPLETED, SEE FLOWSHEET. PT RESTING IN BED AT THIS TIME.
[2020-01-20] VITALS (24 sets, daily range): BP systolic 106–177; BP diastolic 61–98
--- NOTE | 2020-01-20 01:00 | NUR ---
PT REPOSITIONED FOR COMFORT, WILL CONTINUE TO MONITOR.
--- NOTE | 2020-01-20 03:00 | NUR ---
REASSESSMENT COMPLETED, SEE FLOWSHEET.
--- NOTE | 2020-01-20 05:00 | NUR ---
CHG BATH GIVEN, REPOSITIONED FOR COMFORT. WILL CONTINUE TO MONITOR.
[2020-01-20 05:39] LABS: BASOPHILS 0.1 % (0-2); EOSINOPHILS 0 % (0-7); HEMATOCRIT 37.8 % (42.0-54.0); HEMOGLOBIN 11.5 g/dL (13.5-17.5); IMMATURE GRANULOCYTES 1.2 % (0-5); LYMPHOCYTES 2.1 % (15-50); MCH 31.9 pg (26.0-34.0); MCHC 30.4 g/dL (31.0-37.0); MONOCYTES 4.5 % (2-11); NEUTROPHILS 92.1 % (40-80); PLATELET COUNT 261 10x3/uL (130-400); RDW 14.4 % (11.5-14.5); WBC 18.2 10x3/uL (4.8-10.8)
[2020-01-20 05:59] LABS: ALBUMIN 1.9 g/dL (3.4-5.0); ALKALINE PHOSPHATASE 48 U/L (30-120); BILIRUBIN - TOTAL 0.26 mg/dL (0.2-1.3); CALC OSMOLALITY 292 mosm/kg (275-300); CALCIUM 7.7 mg/dL (8.5-10.1); CARBON DIOXIDE 33.4 mmol/L (21.0-32.0); CHLORIDE - SERUM 110 mmol/L (98-107); CREATININE - SERUM 0.5 mg/dL (0.6-1.3); GLUCOSE 149 mg/dL (74-106); POTASSIUM - SERUM 3.7 mmol/L (3.5-5.1); PROTEIN - SERUM 5.8 g/dL (6.4-8.2); SODIUM 145 mmol/L (136-145); UREA NITROGEN 15 mg/dL (7-18); eGFR NON AFRICAN AMERICAN > 90 mL/min (90-120)
[2020-01-20 06:02] LABS: ALT (SGPT) 22 U/L (10-68)
--- NOTE | 2020-01-20 07:15 | NUR ---
REPORT RECEIVED. ASSESSMENT COMPLETE PER FLOW SHEET. VSS PT RESTING COMFORTABLY WILLC ONTINUET O MONITOR
--- NOTE | 2020-01-20 09:20 | NUR ---
DR DELGADO AT BEDSIDE NEW ORDERS RECEIVED.
--- NOTE | 2020-01-20 10:15 | NUR ---
PT TO CT. RESULTS READ BACK TO DR DELGADO.
--- NOTE | 2020-01-20 10:17 | NUR ---
Nutrition follow-up: Diet: Regular PO intake ~50% of breakfast Labs reviewed Wt: 232# Will provide food choices and honor food preferences. RDN following.
--- NOTE | 2020-01-20 10:45 | NUR ---
RADIOLOGY CALLED BACK. SCHEDULED FOR CT EXCHANGED TODAY
--- NOTE | 2020-01-20 11:30 | NUR ---
REASESSMENT COMPLETE PER FLOW SHEET. VCSS. PT RESTING COMFORTABLY WILL CONTINUE TO MONITOR
--- NOTE | 2020-01-20 14:14 | NUR ---
DR JORDAN CALLED IN [facility] TO CONSULT. STATED TO CALL DR CHUNG. DR CHUNG CALLED GIVEN UPDATE. STATED YIN.
--- NOTE | 2020-01-20 15:00 | NUR ---
REASSESSMENT COMPLETE PER FLOW SHEET. VSS. PT RESTING COMFORTABLY. WILL CONTINUE TO MONITOR
--- NOTE | 2020-01-20 19:00 | NUR ---
REPORT REC'D. ASSESSMENT COMPLETED. A/O X 4. DENIES ANY NEEDS. VSS. CALL LIGHT IN REACH
--- NOTE | 2020-01-20 21:00 | NUR ---
PT REQUESTED FOOD. SANDWHICH AND 2 PUDDINGS GIVEN TO PATIENT. CONSUMED HALF THE SANDWHICH WITHOUT DIFFICULTY.
--- NOTE | 2020-01-20 21:07 | MORECARE ---
CASE MANAGEMENT DISCHARGE SUMMARY PATIENT: RIVERA PHILLIPS UNIT: [id number] ADM DATE: 01/14/20 AGE: 69 : [birth year] SEX: M ROOM/BED: D.2306 AUTHOR: SUSHMA CODY PHYSICIAN: REFERRING PHYSICIAN: SHANNAN MISHRA MD DATE OF SERVICE: 01/20/20 Discharge Plan Patient Name: RIVERA PHILLIPS [facility] [facility] 1950 Planned Disposition: Anticipated Discharge Date: Discharge Date: Expected LOS: Initial Reviewer: [email or web address] Initial Review Date: 01/14/2020 Generated: 01/20/20 10:07 pm Patient Name: RIVERA PHILLIPS Page [id number] at 210 All edits/amendments must be made on the electronic document DICTATION DATE: 01/20/202106 GEOTHERMAL OPERATIONS ENGINEER: TERRY 01/20/202106 RPT#: [id number] DC DATE: STATUS: ADM IN [facility] [address] [place] [address] END OF REPORT
--- NOTE | 2020-01-20 21:14 | MORECARE ---
CASE MANAGEMENT DISCHARGE SUMMARY PATIENT: RIVERA PHILLIPS UNIT: [id number] ADM DATE: 01/14/20 AGE: 69 : [birth year] SEX: M ROOM/BED: D.2306 AUTHOR: SUSHMA CODY PHYSICIAN: REFERRING PHYSICIAN: SHANNAN MISHRA MD DATE OF SERVICE: 01/20/20 Discharge Plan Patient Name: RIVERA PHILLIPS [facility] [facility] 1950 Planned Disposition: Anticipated Discharge Date: Discharge Date: Expected LOS: Initial Reviewer: [email or web address] Initial Review Date: 01/14/2020 Generated: 01/20/20 10:13 pm DCPIA - Discharge Planning Initial Assessment Updated by [email or web address]: Joan Guerin on 01/20/20 9:13 pm * Is the patient Alert and Oriented? Yes * How many steps to enter\exit or inside your home? * PCP CASTRO * Pharmacy [facility] * Preadmission Environment Home with Family * ADLs Independent * Other Equipment CANE, WALKER, W/C, HOME 02, TRILOGY, NEBULIZER * List name and contact numbers for known caregivers / representatives who currently or will assist patient after discharge: CARLI GALLAGHER - BRINA -[phone] * Verbal permission to speak to the caregivers and representatives has been obtained from the patient. Yes * Community resources currently utilized None * Additional services required to return to the preadmission environment? No * Can the patient safely return to the preadmission environment? Yes * Has this patient been hospitalized within the prior 30 days at any hospital? No Last DP export: 01/20/20 8:07 pm Patient Name: RIVERA PHILLIPS Page 58501 at 2114 All edits/amendments must be made on the electronic document DICTATION DATE: 01/20/202112 DEBLOCKER: TERRY 01/20/202112 RPT#: [id number] DC DATE: STATUS: ADM IN [facility] [address] [place] [address] END OF REPORT
--- NOTE | 2020-01-20 21:20 | MORECARE ---
CASE MANAGEMENT DISCHARGE SUMMARY PATIENT: RIVERA PHILLIPS UNIT: [id number] ADM DATE: 01/14/20 AGE: 69 : 49 SEX: M ROOM/BED: D.2306 AUTHOR: ESCOBARDOC PHYSICIAN: REFERRING PHYSICIAN: SHANNAN MISHRA MD DATE OF SERVICE: 01/20/20 Discharge Plan Patient Name: RIVERA PHILLIPS Facility: [facility]:[place] : 1950 Planned Disposition: Anticipated Discharge Date: Discharge Date: Expected LOS: Initial Reviewer: [email or web address] Initial Review Date: 01/14/2020 Generated: 01/20/20 10:20 pm Comments DCP- Discharge Planning Updated by [email or web address]: Joan Guerin on 01/20/20 8:[address] Patient Name: RIVERA PHILLIPS Admission Status: ER Accout number: [id number] Admission Date: 01-14-2020 : 1950 Admission Diagnosis:ACUTE AND CHRONIC RESPIRATORY FAILURE WITH HYPERCAPNIA Attending: SHANNAN BANKS Current LOS: 6 Anticipated DC Date: Planned Disposition: Primary Insurance: MEDICARE A & B Discharge Planning Comments: CM met with patient at bedside after explaining CM role and obtaining verbal consent. Patient lives at home with his that is disabled where he is independent with his care and plans to return there upon discharge.CM discussed availability / needs of home health and medical equipment. Patient states that he is really weak and his will not be able to care for him but he doesn't feel that home health will help. CM discussed Inpatient Rehab with patient. Patient wants to think it over before he will agree. Patient states he will have his family drive him home upon discharge. CM will continue to follow and assist as needed with discharge planning / needs. Massage Therapist: Joan Guerin Appended by Joan Guerin on 01/20/2020 21:19 CDT: CM looking back through previous admissions that patient has portable and home 02 along with trilogy through [employer]. DCPIA - Discharge Planning Initial Assessment Updated by [email or web address]: Joan Guerin on 01/20/20 9:13 pm * Is the patient Alert and Oriented? Yes * How many steps to enter\exit or inside your home? * PCP CASTRO * Pharmacy [facility] * Preadmission Environment Home with Family * ADLs Independent * Other Equipment CANE, WALKER, W/C, HOME 02, TRILOGY, NEBULIZER * List name and contact numbers for known caregivers / representatives who currently or will assist patient after discharge: CARLI GALLAGHER - DAUGHTER -[phone] * Verbal permission to speak to the caregivers and representatives has been obtained from the patient. Yes * Community resources currently utilized None * Additional services required to return to the preadmission environment? No * Can the patient safely return to the preadmission environment? Yes * Has this patient been hospitalized within the prior 30 days at any hospital? No Last DP export: 01/20/20 8:14 pm Patient Name: RIVERA PHILLIPS Page 75311 at 2119 All edits/amendments must be made on the electronic document DICTATION DATE: 01/20/202119 FIELD EDUCATION DIRECTOR: TERRY 01/20/202119 RPT#: [id number] DC DATE: STATUS: ADM IN [facility] [address] [place] [address] END OF REPORT
--- NOTE | 2020-01-20 21:26 | MORECARE ---
CASE MANAGEMENT DISCHARGE SUMMARY PATIENT: RIVERA PHILLIPS UNIT: [id number] ADM DATE: 01/14/20 AGE: 69 : 49 SEX: M ROOM/BED: D.2306 AUTHOR: ESCOBARDOC PHYSICIAN: REFERRING PHYSICIAN: SHANNAN MISHRA MD DATE OF SERVICE: 01/20/20 Discharge Plan Patient Name: RIVERA PHILLIPS Facility[facility]:[place] : 1950 Planned Disposition: Anticipated Discharge Date: Discharge Date: Expected LOS: Initial Reviewer: [email or web address] Initial Review Date: 01/14/2020 Generated: 01/20/20 10:26 pm Comments DCP- Discharge Planning Updated by [email or web address]: Joan Guerin on 01/20/20 8:[address] Patient Name: RIVERA PHILLIPS Admission Status: ER Accout number: [id number] Admission Date: 01-14-2020 : 1950 Admission Diagnosis:ACUTE AND CHRONIC RESPIRATORY FAILURE WITH HYPERCAPNIA Attending: SHANNAN BAKNS Current LOS: 6 Anticipated DC Date: Planned Disposition: Primary Insurance: MEDICARE A & B Discharge Planning Comments: CM met with patient at bedside after explaining CM role and obtaining verbal consent. Patient lives at home with his that is disabled where he is independent with his care and plans to return there upon discharge.CM discussed availability / needs of home health and medical equipment. Patient states that he is really weak and his will not be able to care for him but he doesn't feel that home health will help. CM discussed Inpatient Rehab with patient. Patient wants to think it over before he will agree. Patient states he will have his family drive him home upon discharge. CM will continue to follow and assist as needed with discharge planning / needs. Transportation Maintenance Specialist: Joan Guerin Appended by Joan Guerin on 01/20/2020 21:19 CDT: CM looking back through previous admissions that patient has portable and home 02 along with trilogy through [employer]. DCPIA - Discharge Planning Initial Assessment Updated by [email or web address]: Joan Guerin on 01/20/20 9:13 pm * Is the patient Alert and Oriented? Yes * How many steps to enter\exit or inside your home? * PCP CASTRO * Pharmacy [facility] * Preadmission Environment Home with Family * ADLs Independent * Other Equipment CANE, WALKER, W/C, HOME 02, TRILOGY, NEBULIZER * List name and contact numbers for known caregivers / representatives who currently or will assist patient after discharge: CARLI GALLAGHER - DAUGHTER -[phone] * Verbal permission to speak to the caregivers and representatives has been obtained from the patient. Yes * Community resources currently utilized None * Additional services required to return to the preadmission environment? No * Can the patient safely return to the preadmission environment? Yes * Has this patient been hospitalized within the prior 30 days at any hospital? No Last DP export: 01/20/20 8:20 pm Patient Name: RIVERA PHILLIPS Page 91219 at 2125 All edits/amendments must be made on the electronic document DICTATION DATE: 01/20/202125 VOTATOR MACHINE OPERATOR: TERRY 01/20/202125 RPT#: [id number] DC DATE: STATUS: ADM IN [facility] [address] [place] [address] END OF REPORT
--- NOTE | 2020-01-20 23:05 | NUR ---
PATIENT C/O SOB. PULSE OX DROPPED TO 88%. PULLED UP IN BED WITH ASSIST, PULSE OX INCREASED TO 98%. PT STATED THAT FEELS MUCH BETTER. CALLED ON PHONE IN ROOM
[2020-01-21] VITALS (23 sets, daily range): BP systolic 114–167; BP diastolic 53–95; Ht 175.3 cm; Wt 119.2 kg
--- NOTE | 2020-01-21 01:00 | NUR ---
REPOSITIONED. VSS. EASILY WAKES TO VOICE
--- NOTE | 2020-01-21 03:00 | NUR ---
RE-ASSESSMENT COMPLETED. REPOSITIONED. NO CHANGES SINCE LAST ASSESSMENT
--- NOTE | 2020-01-21 05:03 | NUR ---
REPOSITIONED. VSS. CALL LIGHT IN REACH
--- NOTE | 2020-01-21 07:00 | NUR ---
AWAKES EASILY TO VERBAL SITMULI SKIN WARM AND DRY. ALERT. DENIES PAIN CHEST ON RIGHT UPPER LATERAL CHESTTO 20 CM SUCTION MILKY THICK DRAINAGE. DRESSING DRY AND INTACT. BLUM CATH PATENT. IV LEFT IJ TRIPLE LUMEN INFUSING WITH NS AT 100 ML HOUR. BILATERAL LUNG SOUNDS DIMINISHED. MONITOR ATRIAL FIB. HANDS VERY SWOLLEN ELEVATED ON PILLOWS. RADHA THIGH HIGH ON BOTH LEGS. HEELS BRIDGED ON PILLOWS. HEAD OF BED ELEVATED 30 DEGREES. INCENTIVE SPIROMETRY DONE TO 500ML.
--- NOTE | 2020-01-21 08:30 | NUR ---
BREAKFAST SERVED ATE FEW BITES EGGS AND BISCUIT. DRINKING MILK. BECOMES SHORT OF BREATH WITH EATING AND REPOSITIONING.
--- NOTE | 2020-01-21 10:00 | NUR ---
NAPPING RESP DEEP AND REGULAR NO DISTRESS. UP DATE GIVEN TO CARLI ON PHONE. PATIENT NOTIFIED OF UPDATE GIVEN TO
--- NOTE | 2020-01-21 11:30 | NUR ---
REFUSED LUNCH JUST WANTS COKE COLA. DR. CHUNG HERE, DR. RHODES HERE, DR. DELGADO HERE, DR. LOWE HERE DISCUSSING PATIENT CASE
--- NOTE | 2020-01-21 12:00 | NUR ---
PATIENT HAS INCREASE SHORTNESS OF BREATH WITH REPOSITIONED. DR. DELGADO HERE, ORDERS RECEIVED FOR PRN BREATHING TX AND BIPAP.
--- NOTE | 2020-01-21 13:21 | NUR ---
CORDARONE BOLUS AND GTT ORDERED FOR ATRIAL FIB RATE ABOVE 120 -150
--- NOTE | 2020-01-21 13:26 | NUR ---
PATIENT RESTING COMFORTABLY ON BIPAP NO DISTRESS
--- NOTE | 2020-01-21 14:00 | NUR ---
UP ON SIDE OF BED PER PHYSICAL THERAPY. PATIENT NEEDS TOTAL ASSISTANCES TO GET INTO SITTING POSITION, BUT ABLE TO SIT WITHOUT ASSISTANCES. ENCOURAGE TO DO FOOT AND LEGS EXERCISES. STATES HE WAS BEDFAST FOR A WEEK PRIOR TO HOSPITALIZATION.
--- NOTE | 2020-01-21 15:32 | NUR ---
GOOD COUGH. CHEST TUBE INTACT 20 CM SUCTION. MILKY PALE YELLOW THICK DRAINAGE. CENTRAL LINE CHANGED IN ASSEMBLER MOVEMENT NECK SHAVED TO HOLD DRESSING IN PLACE. PATIENT TOLERATED POORLY.WATCHING TV. MINIMAL SHORTNESS OF BREATH.
--- NOTE | 2020-01-21 16:13 | NUR ---
watching tv. no distress. on nc at 6 liters.
--- NOTE | 2020-01-21 17:06 | NUR ---
ate dessert only for super. drink soda. no distress. refused bath or repositioning
--- NOTE | 2020-01-21 18:00 | NUR ---
bi pap placed for shortness of breath.
--- NOTE | 2020-01-21 19:00 | NUR ---
REPORT REC'D. ASSESSMENT COMPLETED. BIPAP ON AT 40%. CALL LIGHT IN REACH.
--- NOTE | 2020-01-21 21:00 | NUR ---
PATIENT REFUSING BIPAP. EDUCATED ON THE IMPORTANCE AND WHY, PATIENT DECIDED TO PUT BACK ON.
--- NOTE | 2020-01-21 23:00 | NUR ---
RE-ASSESSMENT COMPLETED. NO CHANGES SINCE LAST ASSESSMENT VSS. CALL LIGHT IN REACH
[2020-01-22] VITALS (24 sets, daily range): BP systolic 102–155; BP diastolic 23–96
--- NOTE | 2020-01-22 01:00 | NUR ---
BIPAP ON AT 40%. EYES CLOSED, EASILY WAKES TO VOICE. REPOSITIONED
--- NOTE | 2020-01-22 02:30 | NUR ---
PATIENT REFUSING BIPAP. EDUCATED ON THE NEED FOR BIPAP AND THE EFFECTS OF REFUSING. PATIENT CONT TO REFUSED AND NOW ON 7L HIGH FLOW NC.
--- NOTE | 2020-01-22 03:33 | NUR ---
PATIENT REQUESTED BIPAP BE PUT BACK ON.
[2020-01-22 05:47] LABS: CALC OSMOLALITY 291 mosm/kg (275-300); CALCIUM 7.6 mg/dL (8.5-10.1); CARBON DIOXIDE 34.4 mmol/L (21.0-32.0); CHLORIDE - SERUM 109 mmol/L (98-107); CREATININE - SERUM 0.5 mg/dL (0.6-1.3); GLUCOSE 139 mg/dL (74-106); POTASSIUM - SERUM 3.2 mmol/L (3.5-5.1); SODIUM 146 mmol/L (136-145); eGFR NON AFRICAN AMERICAN > 90 mL/min (90-120)
[2020-01-22 05:50] LABS: HEMATOCRIT 38.2 % (42.0-54.0); HEMOGLOBIN 11.8 g/dL (13.5-17.5); LYMPHOCYTES 6.7 % (15-50); MCH 32.2 pg (26.0-34.0); MCHC 30.9 g/dL (31.0-37.0); MCV 104.1 fL (80.0-100.0); MEAN PLATELET VOLUME 12.4 fL (7.4-10.4); NEUTROPHILS 84.1 % (40-80); PLATELET COUNT 184 10x3/uL (130-400); RBC 3.67 10x6/uL (4.20-6.10); RDW 14.1 % (11.5-14.5); WBC 12.4 10x3/uL (4.8-10.8)
--- NOTE | 2020-01-22 06:00 | NUR ---
SITTING UP IN BED. BIPAP OFF AROUND 0445 PER PT REQUEST. AROUND 0515 PT REQUESTED PRN UPDRAFT.
[2020-01-22 06:01] LABS: UREA NITROGEN 9 mg/dL (7-18)
--- NOTE | 2020-01-22 07:00 | NUR ---
AWAKES EASILY TO VERBAL STIMULI. SKIN WARM AND DRY. OXYGEN AT 9 LITERS PER HIGH FLOW NC DECREASED TO 6 LITERS. PULSE OX 100%. BLUM CATH PATENT DRAINING CLEAR PEDRO URINE. CHEST TO 20 CM SUCTION PALE YELLOW THICK DRAINAGE IN TUBING. NO AIR LEAK NOTED. IV LEFT IJ TRIPLEL LUMEN CENTRAL LINE INFUSING WITH NS 100 ML HOUR. CORDARONE GTT AT 0.5 MCG/HOUR. MONITOR ATRIAL FIB. HEAD OF BED ELEVATED 30 DEGREES. REPOSITIONED FOR BREAKFAST. HEELS BRIDGED ON PILLOW. INCENTIVE SPIROMETRY TO 500-600 ML. CALL LIGHT WITHIN HANDS REACH. DENIES PAIN
--- NOTE | 2020-01-22 08:25 | NUR ---
BREAKFAST SERVED ATE WELL 75% OF MEAL. FEEDING SELF. PO FLUIDS TAKEN. REVIEWED MENU FOR DAY.
--- NOTE | 2020-01-22 09:00 | NUR ---
MAXIMUM LIFT PER PHYSICAL THERAPY TO CHAIR AT BEDSIDE. TOLERATES POORLY. PATIENT DOES GET SHORT OF BREATH WITH TRANSFER.
--- NOTE | 2020-01-22 11:00 | NUR ---
RETURNED TO BED PER PHYSICAL THERAPY, STILL MAXIMUN ASSIST WITH TRANSFER. PATIENT IS SHORT OF BREATH WITH TRANSFER. CHEST TUBE INTACT TO 20 CM SUCTION MONITOR ATRIAL FIB
--- NOTE | 2020-01-22 13:00 | NUR ---
LUNCH TRAY SERVED, SET UP TRAY. MEAT CUT UP.BECAME SHORT OF BREATH WHEN TRYING TO EAT. PLACED ON BIPAP, RESP THERAPY NOTIFIED.
--- NOTE | 2020-01-22 15:00 | NUR ---
complete bed bath given right great toe quarter size abrasion noted. clean with soap and water. metaplex applied. beefy red in color. bleeds easily. right chest tube dressing changed. site clean with betadine. sterile 4x4 APPLIED. TEGRADERM APPLIED. CLEAN RADHA APPLIE MEASURED LEGS. 42 X 24.5 CM. PATIENT TOLERATED FAIR. HEAD OF BED ELEVATED 30 DEGREES. HEELS BRIDGE ON PILLOW. LARGE SOFT BROWN BM .MONITOR AFIB.
--- NOTE | 2020-01-22 18:00 | NUR ---
OFF BIPAP, STATES HE IS CLAUSTROPHOBIC AND CAN NOT WEAR BIPAP MASK FOR LONG. BACK NC AT 3 LITERS.
--- NOTE | 2020-01-22 19:00 | NUR ---
REPORT RECEIVED CARE ASSUMED. RECIEVED PATIENT IN BED. AWAKE ALERT AND ORIENTED X 4. USING BIPAP. ASSESSMENT COMPLETED PER FLOW SHEET WITH NO ACUTE DISTRESS OBSERVED. MONITORS CONNECTED TO PATIENT WITH ALARMS SET. VSS. CURRENTLY SINUS BUBBA ON MONITOR. AMIODARONE INFUSION HELD AT THIS TIME. RT CHEST TUBE INTACT/SECURE/PATENT CONNECTED TO 20CM WALL SUCTION WITH MODERATE AMOUNT OF SEROUS FLUID DRAINING INTO COLLECTION CHAMBER. CALL LIGHT IN REACH AND ABLE TO UTILIZE TO MAKE NEEDS KNOWN.
--- NOTE | 2020-01-22 21:00 | NUR ---
AWAKE AND ALERT. PM MEDS TAKEN WITHOUT DIFF. VSS. CALL LIGHT IN REACH
--- NOTE | 2020-01-22 23:00 | NUR ---
AWAKE AND ALERT. VSS. REASSESSMENT COMPLETED PER FLOW SHEET WITH NO ACUTE DISTRESS OBSERVED. CALL LIGHT IN REACH. REFUSES REPOSITIONING AT THIS TIME.
[2020-01-23] VITALS (23 sets, daily range): BP systolic 104–162; BP diastolic 53–96
--- NOTE | 2020-01-23 01:00 | NUR ---
AWAKE AND ALERT. VSS. CALL LIGHT IN REACH
--- NOTE | 2020-01-23 03:00 | NUR ---
AWAKE AND ALERT. TURNED AND REPOSITIONED. REASSESSMENT COMPLETED PER FLOW SHEET WITH NO ACUTE DISTRESS OBSERVED. VSS. CALL LIGHT IN REACH
--- NOTE | 2020-01-23 05:00 | NUR ---
AWAKE AND ALERT. VSS. CALL LIGHT IN REACH
[2020-01-23 06:12] LABS: CALC OSMOLALITY 289 mosm/kg (275-300); CALCIUM 7.3 mg/dL (8.5-10.1); CARBON DIOXIDE 35.8 mmol/L (21.0-32.0); CHLORIDE - SERUM 110 mmol/L (98-107); CREATININE - SERUM 0.4 mg/dL (0.6-1.3); GLUCOSE 108 mg/dL (74-106); POTASSIUM - SERUM 3.7 mmol/L (3.5-5.1); SODIUM 146 mmol/L (136-145); UREA NITROGEN 8 mg/dL (7-18); eGFR NON AFRICAN AMERICAN > 90 mL/min (90-120)
[2020-01-23 07:41] LABS: HEMATOCRIT 38.5 % (42.0-54.0); LYMPHOCYTES 5.8 % (15-50); MCH 32.3 pg (26.0-34.0); MCHC 31.2 g/dL (31.0-37.0); MCV 103.8 fL (80.0-100.0); MEAN PLATELET VOLUME 12.2 fL (7.4-10.4); NEUTROPHILS 83.7 % (40-80); PLATELET COUNT 190 10x3/uL (130-400); RBC 3.71 10x6/uL (4.20-6.10); RDW 14.5 % (11.5-14.5); WBC 12.1 10x3/uL (4.8-10.8)
--- NOTE | 2020-01-23 09:14 | NUR ---
Nutrition follow-up: Diet: REgular PO intake ~50% average of meals Labs reviewed Wt: 264# Pt filling out menus and po intake slowly improving. RDN following.
--- NOTE | 2020-01-23 12:20 | NUR ---
OT NOTE: PT RESISTANT TO PARTICIPATE TODAY. REPORTED THAT HE JUST DIDNT FEEL GOOD; FINALLY AGREEABLE TO WASH FACE AND HANDS WITH WASH CLOTH AND MOD ASSIST; BED MOB WITH MOD ASSIST X 2; SITTING BALANCE ON EOB X 6 MIN WITHOUT ASSIST; PT INCONT OF BOWEL.. LARGE AMOUNT OF BM NOTED ON PAD. MOD ENCOURAGEMENT TO GET PT TO STAND WITH MAX ASSIST X 2 WHILE NURSING PERFORMED TOILET HYGIENE. PT ABLE TO STAND FOR ONLY 1 MIN AT A TIME. ATTEMPTED SCOOTING UP IN BED, HOWEVER, PT VERY FATIGUED AND REQUIRED MAX/TOTAL FOR THIS. PT WOULD NOT ATTEMPT TO HOLD PHONE WHEN CALLED AND REQUIRED COMPLETE ASSIST WITH THIS X 8 MIN. RETURNED TO BED IN SUPINE POSITION WITH MAX ASSIST X 2. JUAQUIN RENEE, OTR/L [phone]
[2020-01-23 13:29] LABS: APTT 25.3 SECONDS (22.8-39.4); INR 0.98 (0.85-1.17); PROTIME 12.9 SECONDS (11.6-15.0)
--- NOTE | 2020-01-23 16:27 | NUR ---
OT NOTE: PT COMPLETED BUE AAROM TO DECREASE EDEMA. PT REQUIRED MIN A FOR POSITIONING OF BUE. 1116 THANK YOU,CORINA ALBERTO
--- NOTE | 2020-01-23 19:15 | NUR ---
PT A/OX4, VOICES NEEDS, LUNGS DIMINISHED WITH EXP WHEEZES, LEFT IJ CVL INTACT WITH IVF'S INFUSING, RIGHT CHEST TUBE INTACT TO 20 CM SUCTION, GENERALIZED EDEMA NOTED, BLUM PATENT TO BSD, NO DISTRESS NOTED
--- NOTE | 2020-01-23 21:00 | NUR ---
PT FREQUENTLY ASKED FOR BIPAP TO BE REMOVED AND PLACED ON NC, THEN GOES BACK TO BIPAP WITHIN MINUTES, INSTRUCTED PT HE NEEDED TO STAY ON BIPAP MUCH POSSIBLE, SPOKE WITH SPOUSE, SHE WILL BE HERE IN AM TO SIGN CONSENTS AND MEET WITH
[2020-01-24] VITALS (42 sets, daily range): BP systolic 93–160; BP diastolic 41–87
--- NOTE | 2020-01-24 00:15 | NUR ---
PT RESTING QUIETLY WITH BIPAP IN USE, VITALS STABLE, REPOSITIONED FOR COMFORT
--- NOTE | 2020-01-24 03:15 | NUR ---
PT SLEEPING WITH NO DISTRESS, BIPAP IN USE, WILL CONT TO MONITOR
[2020-01-24 05:13] LABS: HEMATOCRIT 35.3 % (42.0-54.0); HEMOGLOBIN 10.9 g/dL (13.5-17.5); LYMPHOCYTES 6.2 % (15-50); MCH 32.2 pg (26.0-34.0); MCHC 30.9 g/dL (31.0-37.0); MCV 104.1 fL (80.0-100.0); MEAN PLATELET VOLUME 12.1 fL (7.4-10.4); NEUTROPHILS 86.8 % (40-80); PLATELET COUNT 162 10x3/uL (130-400); RBC 3.39 10x6/uL (4.20-6.10); RDW 14.8 % (11.5-14.5)
[2020-01-24 05:23] LABS: BILIRUBIN NEGATIVE (NEGATIVE); GLUCOSE NEGATIVE (NEGATIVE); KETONE NEGATIVE (NEGATIVE); NITRITE NEGATIVE (NEGATIVE); UROBILINOGEN NORMAL (NORMAL)
[2020-01-24 05:24] LABS: CALC OSMOLALITY 291 mosm/kg (275-300); CALCIUM 7.2 mg/dL (8.5-10.1); CARBON DIOXIDE 38.3 mmol/L (21.0-32.0); CHLORIDE - SERUM 108 mmol/L (98-107); CREATININE - SERUM 0.4 mg/dL (0.6-1.3); GLUCOSE 108 mg/dL (74-106); POTASSIUM - SERUM 3.3 mmol/L (3.5-5.1); SODIUM 147 mmol/L (136-145); UREA NITROGEN 9 mg/dL (7-18); eGFR NON AFRICAN AMERICAN > 90 mL/min (90-120)
[2020-01-24 05:26] LABS: BACTERIA NONE SEEN /hpf (NEGATIVE); EPITHELIAL CELLS 0-5 /hpf (0-5); RED CELLS - URINE 0-5 /hpf (0-5); WHITE CELLS - URINE 0-5 /hpf (NEGATIVE)
--- NOTE | 2020-01-24 16:15 | NUR ---
PT ARRIVED TO ROOM WITH OR TEAM. ANESTHSIA BAGGING THE PT. PT HOOKED TO VENT AND ICU MONITORS. WILL CONTINUE TO MONITOR VSS.
--- NOTE | 2020-01-24 17:11 | NUR ---
NOTIFIED WITH PT UPDATE. NEW ORDERS RECIEVED. WILL CONTINUE TO MONITOR.
--- NOTE | 2020-01-24 21:45 | NUR ---
CARLI CALLED ICU, PASSWORD VERIFIED, UPDATE GIVEN ON PT, NO CONCERNS NOTED BY CARLI,WILL CONTINUE TO MONITOR
[2020-01-25] VITALS (93 sets, daily range): BP systolic 86–136; BP diastolic 42–115
[2020-01-25 06:11] LABS: HEMATOCRIT 29.6 % (42.0-54.0); HEMOGLOBIN 9.2 g/dL (13.5-17.5); MCH 30.3 pg (26.0-34.0); MCHC 31.1 g/dL (31.0-37.0); MCV 97.4 fL (80.0-100.0); MEAN PLATELET VOLUME 11.3 fL (7.4-10.4); PLATELET COUNT 175 10x3/uL (130-400); RBC 3.04 10x6/uL (4.20-6.10); RDW 18.9 % (11.5-14.5); WBC 21.7 10x3/uL (4.8-10.8)
[2020-01-25 06:34] LABS: ALKALINE PHOSPHATASE 36 U/L (30-120); ALT (SGPT) 21 U/L (10-68); BILIRUBIN - TOTAL 1.11 mg/dL (0.2-1.3); CALCIUM 7.2 mg/dL (8.5-10.1); CARBON DIOXIDE 34.8 mmol/L (21.0-32.0); CHLORIDE - SERUM 108 mmol/L (98-107); CREATININE - SERUM 0.5 mg/dL (0.6-1.3); GLUCOSE 98 mg/dL (74-106); PROTEIN - SERUM 4.5 g/dL (6.4-8.2); SODIUM 145 mmol/L (136-145); eGFR NON AFRICAN AMERICAN > 90 mL/min (90-120)
[2020-01-25 06:38] LABS: CALC OSMOLALITY 288 mosm/kg (275-300); POTASSIUM - SERUM 3.9 mmol/L (3.5-5.1); UREA NITROGEN 13 mg/dL (7-18)
--- NOTE | 2020-01-25 09:29 | NUR ---
Nutrition follow-up: Pt intubated, sedated post-surgery 01/24/20 NPO labs reviewed Will need nutrition support started within 24 hours if pt remains intubated. Recommend Pulmocare @ goal rate of 50 ml/hr RDN following.
--- NOTE | 2020-01-25 09:39 | OP ---
PATIENT NAME: RIVERA PHILLIPS MEDICAL RECORD: [id number] :48 LOCATION:.[facility] D.[id number] ADMISSION DATE:01/14/20 SURGEON: ALEX CHUNG MD DATE OF OPERATION: 01/24/2020 SURGEON: Alex Chung MD PROCEDURE PERFORMED: 1. Right thoracotomy and total decortication. 2. Bronchoscopy. PREOPERATIVE DIAGNOSIS: Right empyema and chronic obstructive pulmonary disease. POSTOPERATIVE DIAGNOSES: Right empyema and chronic obstructive pulmonary disease. ANESTHESIA: General endotracheal anesthesia, double lumen. ESTIMATED BLOOD LOSS: 800 cc. TRANSFUSIONS: 3 packed red blood cells, 1 platelet, and 1 FFP. COMPLICATIONS: None. CONDITION: Critical. DISPOSITION: ICU. OPERATIVE FINDINGS: 1. Dense adhesions to the lower lobe with a well-formed 3 mm thick pleural based cavity that contained elia pus and purulent debris about 200 cc. This was cultured. The extent of the diaphragmatic surface was down into the diaphragmatic muscle and the dense visceral pleural rind was extracted with resultant air leaks, which were controlled with Progel. 2. Endobronchial drainage of pus after freeing the lower lobe noted by anesthesia, but no endobronchial pus on bronchoscopy after the procedure. 3. Significant air leaks on positive pressure ventilation. OPERATIVE INDICATION: Status post chest tube placement and thrombolytic therapy with continued purulent chest tube drainage in a patient with severe COPD on IV steroid therapy and more than 1 week of antibiotics. PROCEDURE IN DETAIL: The patient was brought to the operating suite. General anesthesia, double lumen was obtained. The patient tolerated one lung ventilation poorly after placement on the left lateral decubitus and therefore about every 5 minutes required reinflation of the right lung for 2-3 minutes during the procedure. Right chest was sterilely prepped and draped after left lateral decubitus position with appropriate padding. A posterolateral thoracotomy incision was made. A section of the rib was removed. The pleural cavity was entered. Thorough irrigation was undertaken. The dense pleural rind was entered and purulent material was removed. The rind was removed from the lung. On the diaphragmatic surface, hemostasis was ensured. Thorough irrigation was OPERATIVE REPORT [id number] RIVERA PHILLIPS undertaken. The lung was reinflated. Progel was placed. Large chest tubes were placed, one posteriorly and inferiorly and one superiorly. The chest was closed with 2 muscle layers, subcutaneous subcuticular and skin clips. The patient returned supine bronchoscopy and then to the ICU, ventilated as planned due to preoperative respiratory difficulty. TRANSINT:[id number] Voice Confirmation ID: [id number] DOCUMENT ID: [id number] ALEX CHUNG MD at 0939 CC: AKHIL AMOS MD [id number] DICTATION DATE: 01/24/20 1507 HAND I CUTTER: 01/24/20 2341 ADM IN [facility] [address] [id number]
[2020-01-25 14:09] LABS: FUNGUS STAIN Final report (())
[2020-01-25 14:09] LABS: FUNGUS STAIN Final report (())
[2020-01-25 14:15] LABS: LYMPHOCYTES 11 % (15-50); MONOCYTES 9 % (2-11); NEUTROPHILS 78 % (40-80); PLATELET ESTIMATE NORMAL; ROULEAUX OCC
--- NOTE | 2020-01-25 15:50 | NUR ---
OT NOTE: PT WITH INCREASED EDEMA IN B UES; REPOSITIONED BOTH ARMS AND ELEVATED ON PILLOWS SLIGHTLY ABOVE HEART; GENTLE RETROGRADE MASSAGE TO L HAND; DECREASED TENSION ON RESTRAINTS; PROVIDED WASH CLOTHS IN PALMS OF B HANDS DUE TO INCREASED TONE. JUAQUIN RENEE, OTR/L [phone]
--- NOTE | 2020-01-25 17:30 | NUR ---
REPOSITIONED FOR COMFORT, ORAL CARE PROVIDED
[2020-01-25 18:08] LABS: ACID FAST SMEAR Negative (())
[2020-01-25 18:08] LABS: ACID FAST SMEAR Negative (()); AFB SPECIMEN PROCESSING Not Indicated (())
--- NOTE | 2020-01-25 18:27 | NUR ---
OT NOTE: PT REQUIRED MOD A WITH POSITIONING OF BUE . PT COMPLETED UE PROM TOLERATED TO DECREASE EDEMA. [id number] THANK YOU,CORINA ALBERTO
--- NOTE | 2020-01-25 23:00 | NUR ---
REASSESSMENT COMPLETE PER FLOW SHEET, NO ACUTE CHANGES FROM PRIOR ASSESSMENT, PT B/P & HR LABILE, STIMULATION TO PT CAUSES TREMORS IN UPPER EXTREMETIES AND B/P AND HR DECREASES, PRN SEDATION MEDS GIVEN, NO ACUTE DISTRESS NOTED, ALL DRSG'S C/D/I, WILL CONTINUE TO MONITOR
[2020-01-26] VITALS (87 sets, daily range): BP systolic 91–150; BP diastolic 30–97
--- NOTE | 2020-01-26 05:30 | NUR ---
RNx3 AT BEDSIDE, CHG BATH AND LINEN CHANGE, RT LATERAL CT SITE DRSG CHANGED WITH NO ACUTE S/S OF DISTRESS, PT TOLLERATED ALL MOVEMENT WELL, MEPELEX DRSG PLACED ON COCCYX/BTTOCK PRESSURE ULCER, REPOSITIONED PT UP IN BED FOR COMFORT HOB ELEVATED, VSS, RADHA HOSE AND SCD'S ON BLE, BED ALARM ON, WILL CONTINUE TO MONITOR
[2020-01-26 06:20] LABS: BASOPHILS 0.1 % (0-2); EOSINOPHILS 0.3 % (0-7); HEMATOCRIT 27.1 % (42.0-54.0); HEMOGLOBIN 8.6 g/dL (13.5-17.5); IMMATURE GRANULOCYTES 0.2 % (0-5); LYMPHOCYTES 4.2 % (15-50); MCH 31.2 pg (26.0-34.0); MCHC 31.7 g/dL (31.0-37.0); MCV 98.2 fL (80.0-100.0); MEAN PLATELET VOLUME 11.7 fL (7.4-10.4); NEUTROPHILS 89.2 % (40-80); RBC 2.76 10x6/uL (4.20-6.10); RDW 17.8 % (11.5-14.5)
[2020-01-26 06:24] LABS: PLATELET COUNT 126 10x3/uL (130-400); WBC 15.3 10x3/uL (4.8-10.8)
[2020-01-26 06:46] LABS: ALKALINE PHOSPHATASE 34 U/L (30-120); ALT (SGPT) 20 U/L (10-68); BILIRUBIN - TOTAL 0.84 mg/dL (0.2-1.3); CALCIUM 7.7 mg/dL (8.5-10.1); CARBON DIOXIDE 33.2 mmol/L (21.0-32.0); CHLORIDE - SERUM 109 mmol/L (98-107); GLUCOSE 95 mg/dL (74-106); POTASSIUM - SERUM 4.4 mmol/L (3.5-5.1); PROTEIN - SERUM 4.9 g/dL (6.4-8.2); SODIUM 146 mmol/L (136-145)
[2020-01-26 06:51] LABS: CALC OSMOLALITY 292 mosm/kg (275-300); CREATININE - SERUM 0.7 mg/dL (0.6-1.3); TROPONIN-I < 0.017 ng/mL (0.000-0.060); UREA NITROGEN 18 mg/dL (7-18); eGFR NON AFRICAN AMERICAN > 90 mL/min (90-120)
--- NOTE | 2020-01-26 09:30 | NUR ---
DR CHUNG AT BEDSIDE. UPDATE GIVEN. NO NEW ORDERS AT THIS TIME. WILL CONTINUE TO MONITOR
--- NOTE | 2020-01-26 12:50 | NUR ---
DR AMOS AT BEDSIDE. UPDATE GIVEN. WANTS JOSIAS OFF AND JUST USE LEVOPHED. WILL CONTINUE TO MONITOR
--- NOTE | 2020-01-26 14:10 | NUR ---
INTUBATED/SEDATED. HE IS ON AN AIROVERLAY MATTRESS. RADHA HOSE IN PLACE. HEELS FLOATED. RIGHT BUTTOCKS HAS A STAGE 2 PRESSURE INJURY (0.5CM X 0.5CM) LEFT BUTTOCKS STAGE 2 PRESSURE INJURY 0.5CM X 0.5CM RIGHT HEEL HAS 1CM X 1CM DEEP TISSUE INJURY LEFT HEEL HAS 2CM X 2CM STAGE 1 PRESSURE INJURY MEPILEX SACRAL DRESSING IS BEING USED TO PROTECT BOTTOM. PT IS BEING TURNED/REPOSITIONED. HEELS FLOATED. WOUND CARE CONTINUES MONITORING.
--- NOTE | 2020-01-26 14:45 | NUR ---
BLOOD INFUSION STARTED. SEE BLOOD SHEET
--- NOTE | 2020-01-26 15:10 | NUR ---
OT NOTE: PT REMAINS INTUBATED. POSITIONED UES; RETROGRADE MASSAGE TO L HAND WITH IMPROVEMENT NOTED. CONT TO EXHIBIT INCREASED TONE IN B HANDS. JUAQUIN RENEE, OTR/L
--- NOTE | 2020-01-26 15:27 | NUR ---
BLOOD INFUSION STOPPED.
--- NOTE | 2020-01-26 15:27 | NUR ---
PT SHOWING TACHYCARDIA ON THE MONITOR. EKG OBTAINED. AFIB WITH RVR. PAGING CARDIOLOGY
--- NOTE | 2020-01-26 16:00 | NUR ---
CARDIOLOGY PAGED AGAIN. PT HR STAYING UNCONTROLLED AFIB 120'S-140'S.
[2020-01-26 16:08] LABS: ACID FAST SMEAR Negative (()); AFB SPECIMEN PROCESSING Concentration (())
--- NOTE | 2020-01-26 17:39 | NUR ---
BLOOD FINISHED INFUSING. NO SIGNS OF TRANSFUSION REACTION. WILL CONTINUE TO MONITOR
--- NOTE | 2020-01-26 19:30 | NUR ---
CALLED ICU, PASSWORD VERIFIED, UPDATE GIVEN ON PT INCLUDING V/S AND CM RHYTHM CHANGE WITH Tx, INFORMED SHE CAM=N CALL ICU ANY TIME IF SHE HAS QUESTIONS OR CONCERNS, CALM AND STATED SHE UNDERSTANDS, DENIES FURTHER NEEDS AT THIS TIME, WILL CONTINUE TO MONIOTR
--- NOTE | 2020-01-26 22:48 | NUR ---
CALLED TO VERIFY CHEST TUBE SUCTION ORDERS, STATED HE WANTS BOTH CHEST TUBES TO WATERSEAL, NO FURTHER AT THIS TIME WILL CONTINUE TO MONITOR
[2020-01-27] VITALS (24 sets, daily range): BP systolic 103–170; BP diastolic 51–125
[2020-01-27 05:52] LABS: BASOPHILS 0.1 % (0-2); EOSINOPHILS 0.1 % (0-7); HEMATOCRIT 31.5 % (42.0-54.0); HEMOGLOBIN 9.7 g/dL (13.5-17.5); IMMATURE GRANULOCYTES 0.3 % (0-5); LYMPHOCYTES 4.9 % (15-50); MCH 30.1 pg (26.0-34.0); MCHC 30.8 g/dL (31.0-37.0); MCV 97.8 fL (80.0-100.0); MEAN PLATELET VOLUME 12.1 fL (7.4-10.4); MONOCYTES 6.1 % (2-11); NEUTROPHILS 88.5 % (40-80); PLATELET COUNT 114 10x3/uL (130-400); RBC 3.22 10x6/uL (4.20-6.10); RDW 16.8 % (11.5-14.5)
[2020-01-27 06:14] LABS: ALBUMIN 2.1 g/dL (3.4-5.0); ALKALINE PHOSPHATASE 35 U/L (30-120); ALT (SGPT) 18 U/L (10-68); BILIRUBIN - TOTAL 0.77 mg/dL (0.2-1.3); CALC OSMOLALITY 292 mosm/kg (275-300); CALCIUM 7.9 mg/dL (8.5-10.1); CHLORIDE - SERUM 108 mmol/L (98-107); CREATININE - SERUM 0.7 mg/dL (0.6-1.3); GLUCOSE 108 mg/dL (74-106); MAGNESIUM - SERUM 1.9 mg/dL (1.8-2.4); PHOSPHOROUS 2.8 mg/dL (2.5-4.9); POTASSIUM - SERUM 4.2 mmol/L (3.5-5.1); PROTEIN - SERUM 5.1 g/dL (6.4-8.2); SODIUM 145 mmol/L (136-145); UREA NITROGEN 22 mg/dL (7-18); WBC 10.9 10x3/uL (4.8-10.8); eGFR NON AFRICAN AMERICAN > 90 mL/min (90-120)
--- NOTE | 2020-01-27 10:09 | NUR ---
Nutrition follow-up: Pt remains intubated, sedated Pulmocare infusing @ 40 ml/hr goal rate Pt tolerating at this time Labs reviewed Wt: 303# RDN following.
[2020-01-27 10:10] LABS: FUNGUS STAIN Final report (())
--- NOTE | 2020-01-27 12:00 | NUR ---
DR AMOS HERE TALKING TO CARLI ON PHONE ABOUT PROCEDURE AND UPDATING HER ON CONDITION.
--- NOTE | 2020-01-27 12:30 | NUR ---
VERBAL CONSENT GIVEN PER FOR BRONCHOSCOPY. DR AMOS HERE IN ROOM READY FOR PROCEDURE.
--- NOTE | 2020-01-27 19:10 | NUR ---
SHIFT ASSESSMENT COMPLETED SEE FLOWSHEET PT INTUBATED, AWAKE AND ALERT ON VENT ABLE TO FOLLOW COMMANDS, SLIGHTLY ELEVATED BP. NSR AT THIS TIME. IV LINES CHECKED AND DOCUMENTED. NO ACUTE DISTRESS VSS CPOC
--- NOTE | 2020-01-27 21:30 | NUR ---
PT INCREASE IN HR. AFIB NOTED ON THE MONITOR
--- NOTE | 2020-01-27 22:51 | NUR ---
REASSESSMENT COMPLETED SEE FLOWSHEET. PT NOW IN FLUTTER AT A RATE OF 82 - VSS CPOC
[2020-01-28] VITALS (24 sets, daily range): BP systolic 94–173; BP diastolic 51–801
--- NOTE | 2020-01-28 | NUR ---
PARTIAL BATH AND COMPLETE LINEN CHANGE PTS ARMS WEEPING
--- NOTE | 2020-01-28 03:15 | NUR ---
REASSESSMENT COMPLETED SEE FLOWSHEET
[2020-01-28 05:40] LABS: BASOPHILS 0.1 % (0-2); EOSINOPHILS 0.1 % (0-7); HEMATOCRIT 31.1 % (42.0-54.0); HEMOGLOBIN 9.7 g/dL (13.5-17.5); IMMATURE GRANULOCYTES 0.3 % (0-5); LYMPHOCYTES 4.9 % (15-50); MCH 30.3 pg (26.0-34.0); MCHC 31.2 g/dL (31.0-37.0); MCV 97.2 fL (80.0-100.0); MEAN PLATELET VOLUME 11.6 fL (7.4-10.4); MONOCYTES 10.5 % (2-11); NEUTROPHILS 84.1 % (40-80); PLATELET COUNT 135 10x3/uL (130-400); RDW 16.5 % (11.5-14.5); WBC 8.6 10x3/uL (4.8-10.8)
[2020-01-28 05:59] LABS: % SATURATION 19 % (15-55); ALBUMIN 2.4 g/dL (3.4-5.0); ALKALINE PHOSPHATASE 35 U/L (30-120); ALT (SGPT) 17 U/L (10-68); BILIRUBIN - TOTAL 0.91 mg/dL (0.2-1.3); CALC OSMOLALITY 295 mosm/kg (275-300); CALCIUM 8.2 mg/dL (8.5-10.1); CARBON DIOXIDE 37.8 mmol/L (21.0-32.0); CHLORIDE - SERUM 108 mmol/L (98-107); CREATININE - SERUM 0.8 mg/dL (0.6-1.3); GLUCOSE 117 mg/dL (74-106); IRON 24 ug/dl (35-150); PHOSPHOROUS 3.2 mg/dL (2.5-4.9); POTASSIUM - SERUM 3.9 mmol/L (3.5-5.1); PROTEIN - SERUM 5.5 g/dL (6.4-8.2); SODIUM 146 mmol/L (136-145); TOTAL IRON BIND CAPACITY 124 ug/dl (260-445); UNSAT IRON BIND CAPACITY 100 ug/dl (150-375); UREA NITROGEN 23 mg/dL (7-18); eGFR NON AFRICAN AMERICAN > 90 mL/min (90-120)
--- NOTE | 2020-01-28 07:00 | NUR ---
BEDSIDE REPORT RECEIVED. SHIFT ASSESSMENT COMPLETED PER FLOWSHEET, SEE FLOWSHEET FOR INFORMATION. RLQ WEEPING, DRESSING CDI. DRESSING CHANGED ON RIGHT FOOT, CDI. LEFT ARM DRESSING CDI, LEFT ARM WEEPING. PT AGITATED, MEDICATIONS GIVEN PER ORDERS. WILL CONT TO MONITOR. VSS.
--- NOTE | 2020-01-28 09:00 | NUR ---
PT RESTING IN BED WITH EYES CLOSED. ORAL AND INLINE SUCTIONED. WLL CONT TO MONITOR. VSS.
--- NOTE | 2020-01-28 11:00 | NUR ---
REASSESSMENT COMPLETED PER FLOWSHEET, SEE FLOWSHEET FOR INFORMATION. 1100 MEDICATIONS GIVEN, ORAL CARE GIVEN. TURNED PT PER COMFORT. VSS. WILL CONT TO MONITOR.
--- NOTE | 2020-01-28 13:00 | NUR ---
PT RESTING IN BED WITH EYES CLOSED. TURNING SEDATION DOWN TO START FOR CPAP TRIALS. WILL CONT TO MONITOR. VSS.
--- NOTE | 2020-01-28 13:30 | NUR ---
STARTED CPAP TRIALS. WILL CONT TO MONITOR. -
--- NOTE | 2020-01-28 14:46 | NUR ---
1331-- CPAP TRAIL 10 PS 5 PEEP AT 40% 1405-- Vte 325/ RR 25/ Ve 8.2/ PIP 16/ Pm 7.8/ RSBI 45 91% HR 145 1438-- SWITCH BACK TO ASSIST CONTROL DUE TO UNCONTROLLED HEART RATE
--- NOTE | 2020-01-28 15:00 | NUR ---
REASSESSMENT COMPLETED PER FLOWSHEET, SEE FLOWSHEET FOR INFORMATION. NOTED A BUG CRAWLING OUT OF PT EAR ONTO LINEN. PUT BUG IN SPECIMEN CONTAINER, CONFIRMED BEDBUG IDENTITY WITH ER. TIRE REPAIRER NOTIFIED. PT PUT INTO CONTACT ISOLATION. WILL CONT TO MONITOR.
--- NOTE | 2020-01-28 17:00 | NUR ---
PT RESTING IN BED WITH EYES CLOSED. WILL CONT TO MONITOR.
--- NOTE | 2020-01-28 19:30 | NUR ---
INITIAL ASSESSMENT COMPLETE SEE FLOWSHEET. PT ORALLY INTUBATED SEE RT NOTES FOR VENT. PT AWAKE NODS HEAD APPROPRIATELY AND FOLLOWS COMMANDS FENTANYL GTT INFUSING SEE IV FLOWSHEET. RIGHT RADIAL ARTLINE AND CVP LINES ZEROED AND CALIBRATED. CM READING UNCONTROLLED AFIB ALARMS ON AND AUDIBLE. PT REPOSITIONED AND ORAL CARE PROVIDED. BED IN LOW POSITION SIDE RAILS UP TIMES 3 FOR SAFETY. WILL CONTINUE TO MONITOR. CPOC WILL CONTNIUE TO MONITOR
--- NOTE | 2020-01-28 20:00 | NUR ---
PT RIGHT RADIAL ARTLINE ARM BOARD TIGHT LOOSENED AND PADDED WITH GAUZE. ELEVATED WITH PILLOW. SMALL BRUISING ON WRIST
--- NOTE | 2020-01-28 23:00 | NUR ---
REASSESSMENT COMPLETE SEE FLOWSHEET CPOC. PT BRADYCARDIC ASYMPTOMATIC
[2020-01-29] VITALS (24 sets, daily range): BP systolic 104–176; BP diastolic 43–97
--- NOTE | 2020-01-29 01:00 | NUR ---
VENT ALARMING SUCTIONED ORALLY AND VIA ETT REPOSITIONED WILL MONITOR
--- NOTE | 2020-01-29 03:00 | NUR ---
REASSESSMENT COMPLETE SEE FLOWSHEET. PT HEART RATE CONTINUES TO BE LABILE FROM BUBBA IN THE 50'S TO 90'S. WILL PASS ON IN REPORT TO DAY SHIFT NURSE. LOOKING BACK THROUGH CHART PT HAS HAD BOUTS FROM AFIB RVR RATE IN 150'S TO BRADYCARDIA.
--- NOTE | 2020-01-29 04:14 | NUR ---
RADIOLOGY HERE FOR CHEST XRAY
--- NOTE | 2020-01-29 05:00 | NUR ---
AM LABS DRAWN
[2020-01-29 06:31] LABS: ALBUMIN 2.5 g/dL (3.4-5.0); ALKALINE PHOSPHATASE 33 U/L (30-120); ALT (SGPT) 18 U/L (10-68); BILIRUBIN - TOTAL 1.13 mg/dL (0.2-1.3); CALCIUM 8.2 mg/dL (8.5-10.1); CHLORIDE - SERUM 107 mmol/L (98-107); CREATININE - SERUM 0.9 mg/dL (0.6-1.3); GLUCOSE 98 mg/dL (74-106); MAGNESIUM - SERUM 2.1 mg/dL (1.8-2.4); PHOSPHOROUS 3.6 mg/dL (2.5-4.9); POTASSIUM - SERUM 3.4 mmol/L (3.5-5.1); PROTEIN - SERUM 5.3 g/dL (6.4-8.2); SODIUM 148 mmol/L (136-145); eGFR NON AFRICAN AMERICAN 89 mL/min (90-120)
[2020-01-29 06:32] LABS: CALC OSMOLALITY 299 mosm/kg (275-300); UREA NITROGEN 29 mg/dL (7-18)
--- NOTE | 2020-01-29 06:32 | NUR ---
ORAL CARE PROVIDED REPOSITIONED WHITE PADS CHANGED UNDER ARMS PT WEEPING.
[2020-01-29 06:53] LABS: BASOPHILS 0.1 % (0-2); HEMATOCRIT 29.7 % (42.0-54.0); HEMOGLOBIN 9.2 g/dL (13.5-17.5); IMMATURE GRANULOCYTES 0.2 % (0-5); LYMPHOCYTES 6.1 % (15-50); MCH 30.7 pg (26.0-34.0); MEAN PLATELET VOLUME 12.4 fL (7.4-10.4); MONOCYTES 5.7 % (2-11); NEUTROPHILS 86.9 % (40-80); PLATELET COUNT 123 10x3/uL (130-400); RDW 16.7 % (11.5-14.5)
--- NOTE | 2020-01-29 07:00 | NUR ---
BEDSIDE REPORT RECEIVED. SHIFT ASSESSMENT COMPLETED PER FLOWSHEET, SEE FLOWSHEET FOR INFORMATION. PT INTUBATED AND FOLLOWS COMMANDS, ANSWERS YES NO QUESTIONS APPROPRIATELY. PT REQUESTED TO BE REPOSITIONED, REPOSITIONED PT PER COMFORT. PT DENIES ANY ACUTE NEEDS OR DISTRESS AT THIS TIME. VSS. WILL CONT TO MONITOR.
[2020-01-29 07:11] LABS: WBC 11.9 10x3/uL (4.8-10.8)
--- NOTE | 2020-01-29 08:56 | EC ---
PATIENT:RIVERA PHILLIPS DATE OF SERVICE: 01/14/20 SEX: M MEDICAL RECORD: [id number] DATE OF : [birth year] LOCATION:[facility] D230 AGE OF PATIENT: 69 ADMISSION DATE: 01/14/20 REFERRING PHYSICIAN: INTERPRETING PHYSICIAN: SORAYA KLEIN MD ECHOCARDIOGRAM REPORT ECHO CHARGES 5 ECHO LIMITED Date: 01/25/20 CLINICAL DIAGNOSIS: AFIB/ CARDIAC CHANGES, REASSESS ECHOCARDIOGRAPHIC MEASUREMENTS (adult normal given) AC root (d.<3.7cm) 3.8 cm LV Septum d (<1.2 cm> 1.4 cm Valve Excursion 1.7 cm LV Septum (systole) 1.8 cm Left Atria (s.<4.0cm> 4.3 cm LVPW d(<1.2cm) 1.9 cm RV (d.<2.3cm) 3.8 cm LVPW (sytole) 2.0 cm LV diastole(<5.6CM) 5.0 cm MV E-F(>70mm/sec) cm LV systole 3.5 cm LVOT Diameter cm MV exc.(>10mm) 2.0 cm Est.ejection fraction (50-75%) % DOPPLER: LVIT cm/sec A cm/sec E cm/sec LA cm/sec RVSP 26 mmHg LVOT cm/sec AOP1/2T m/s Asc. Ao cm/sec RVOT cm/sec RA cm/sec PA cm/sec AV Gradient Peak mmHg AV Mean mmHg AV Area cm MV Gradient Peak mmHg MV Mean mmHg MV Area cm COMMENTS: Equipment Sterilizer: 2 DAVID GARNICA Heel Seat Fitter: 3 Dr. Rodriguez TAPE# PACS Pericardial Effusion N DATE OF SERVICE: Technically limited study with full study done on 01/15/2020. Grossly, LVH appears present. LV internal dimensions are normal. Wall motion is normal. EF is greater than or equal to 55%. Aortic valve is tricuspid with good valve excursion. Left atrium grossly appears normal. Mitral valve shows good valve excursion. Right-sided chambers appear grossly normal. TRANSINT:[id number] Voice Confirmation ID: [id number] DOCUMENT ID: [id number] ECHOCARDIOGRAM REPORT [id number] RIVERA PHILLIPS SORAYA KLEIN MD at 0831 CC: [id number] DICTATION DATE: 01/26/20 0848 BUSINESS MANAGEMENT INTERN: 01/26/20 1520 ADM IN [facility] [address] [id number]
--- NOTE | 2020-01-29 09:00 | NUR ---
REPOSTIONED PT PER COMFORT. NO ACUTE NEEDS OR DISTRESS AT THIS TIME, AT BEDSIDE. VSS. WILL CONT TO MONITOR.
--- NOTE | 2020-01-29 11:00 | NUR ---
REASSESSMENT COMPLETED PER FLOWSHEET, SEE FLOWSHEET FOR INFORMATION. RIGHT LATERAL CHEST TUBEX2 DRESSING CHANGED USING 4X4 GAUZE AND TEGADERM, CDI. BACK THORACOTOMY INCISION DRESSING CHANGED USING ABD PAD. NO ACUTE NEEDS OR DISTRESS NOTED AT THIS TIME. VSS. WILL CONT TO MONITOR.
--- NOTE | 2020-01-29 13:00 | NUR ---
CPAP TRAILS STARTED, FAILED AT 1330 DUE TO HTN AND TACHYCARDIA. NOTIFIED. WILL CONT TO MONITOR.
--- NOTE | 2020-01-29 13:00 | NUR ---
PT RESTING IN BED WITH EYES CLOSED, HTN NOTED MEDICTIONS GIVEN PER ORDERS. WILL CONT TO MONITOR.
--- NOTE | 2020-01-29 14:03 | NUR ---
AT BEDSIDE, NOTIFIED OF DESAT TO 77%, INCREASED O2 TO 50% NOW SATING 95%. NEW ORDER RECEIVED. WANTS TO NOTIFY , PAGED. WILL CONT TO MONITOR.
--- NOTE | 2020-01-29 15:00 | NUR ---
REASSESSMENT COMPLETED PER FLOWSHEET, SEE FLOWSHEET FOR INFORMATION. UPDATED , NEW ORDERS RECEIVED. CALLED AND GIVEN PERMISSION TO DO BRONCH. WILL CONT TO MONITOR.
--- NOTE | 2020-01-29 16:00 | NUR ---
AT BEDSIDE, BRONCHOSCOPY AT BEDSIDE. WILL CONT TO MONITOR.
--- NOTE | 2020-01-29 16:40 | NUR ---
TUBE FEED RESIDUAL 310, HOLD TUBE FEEDING UNTIL 2300 AND RECHECK RESIDUAL. WILL CONT TO MONITOR.
--- NOTE | 2020-01-29 17:00 | NUR ---
PT RESTING IN BED WITH EYES CLOSED. VSS. WILL CONT TO MONITOR.
[2020-01-30] VITALS (24 sets, daily range): BP systolic 105–168; BP diastolic 30–73
[2020-01-30 05:33] LABS: ALBUMIN 2.4 g/dL (3.4-5.0); ALKALINE PHOSPHATASE 42 U/L (30-120); BILIRUBIN - TOTAL 1.01 mg/dL (0.2-1.3); CALC OSMOLALITY 298 mosm/kg (275-300); CALCIUM 8.4 mg/dL (8.5-10.1); CARBON DIOXIDE 38.2 mmol/L (21.0-32.0); CHLORIDE - SERUM 109 mmol/L (98-107); CREATININE - SERUM 0.8 mg/dL (0.6-1.3); GLUCOSE 95 mg/dL (74-106); POTASSIUM - SERUM 3.2 mmol/L (3.5-5.1); PROTEIN - SERUM 5.2 g/dL (6.4-8.2); SODIUM 148 mmol/L (136-145); UREA NITROGEN 26 mg/dL (7-18); eGFR NON AFRICAN AMERICAN > 90 mL/min (90-120)
[2020-01-30 05:39] LABS: BASOPHILS 0.1 % (0-2); EOSINOPHILS 2.4 % (0-7); HEMATOCRIT 29.2 % (42.0-54.0); HEMOGLOBIN 8.9 g/dL (13.5-17.5); IMMATURE GRANULOCYTES 0.2 % (0-5); LYMPHOCYTES 6.4 % (15-50); MCH 30.5 pg (26.0-34.0); MCHC 30.5 g/dL (31.0-37.0); MEAN PLATELET VOLUME 12.7 fL (7.4-10.4); MONOCYTES 4.8 % (2-11); NEUTROPHILS 86.1 % (40-80); PLATELET COUNT 114 10x3/uL (130-400); RBC 2.92 10x6/uL (4.20-6.10); RDW 16.6 % (11.5-14.5); WBC 12.4 10x3/uL (4.8-10.8)
[2020-01-30 05:40] LABS: ALT (SGPT) 13 U/L (10-68)
--- NOTE | 2020-01-30 07:00 | NUR ---
ASSESSMENT COMPLETE PER FLOWSHEET. PT AWAKE AND ALERT.
--- NOTE | 2020-01-30 10:37 | NUR ---
Nutrition follow-up: Intubated; sedation off Following commands Pulmocare infusing @ 40 ml/hr Labs reviewed Wt: 284# If pt remains intubated without propofol, will need to increase TF to 60 ml/hr to better meet estimated energy needs. RDN following.
--- NOTE | 2020-01-30 11:53 | NUR ---
0901: CPAP TRAIL: 08/18 50% PIP 20 Pm 8.2 I:E 1:3.8 RR 23 Vte 397 Ve 8.21 SPaO2 100% HR 88 1145 ENDED TRAIL AND PLACED BACK ON ASSIST CONTROL DUE TO PATIENT BECOMING AGITATED.
--- NOTE | 2020-01-30 16:20 | MORECARE ---
CASE MANAGEMENT DISCHARGE SUMMARY PATIENT: RIVERA PHILLIPS UNIT: [id number] ADM DATE: 01/14/20 AGE: 69 : [birth year] SEX: M ROOM/BED: D.2306 AUTHOR: ESCOBARDOC PHYSICIAN: REFERRING PHYSICIAN: SHANNAN MISHRA MD DATE OF SERVICE: 01/30/20 Discharge Plan Patient Name: RIVERA PHILLIPS Facility: [facility]:[place] : 1950 Planned Disposition: Anticipated Discharge Date: Discharge Date: Expected LOS: Initial Reviewer: [email or web address] Initial Review Date: 01/14/2020 Generated: 01/30/20 5:19 pm DCP- Discharge Planning Updated by [email or web address]: Joan Guerin on 01/20/20 8:[address] Patient Name: RIVERA PHILLIPS Admission Status: ER Accout number: [id number] Admission Date: 01-14-2020 : 1950 Admission Diagnosis:ACUTE AND CHRONIC RESPIRATORY FAILURE WITH HYPERCAPNIA Attending: SHANNAN BANKS Current LOS: 6 Anticipated DC Date: Planned Disposition: Primary Insurance: MEDICARE A & B Discharge Planning Comments: CM met with patient at bedside after explaining CM role and obtaining verbal consent. Patient lives at home with his that is disabled where he is independent with his care and plans to return there upon discharge.CM discussed availability / needs of home health and medical equipment. Patient states that he is really weak and his will not be able to care for him but he doesn't feel that home health will help. CM discussed Inpatient Rehab with patient. Patient wants to think it over before he will agree. Patient states he will have his family drive him home upon discharge. CM will continue to follow and assist as needed with discharge planning / needs. Master At Arms: Joan Guerin Appended by Joan Guerin on 01/20/2020 21:19 CDT: CM looking back through previous admissions that patient has portable and home 02 along with trilogy through [employer]. DCPIA - Discharge Planning Initial Assessment Updated by [email or web address]: Joan Guerin on 01/20/20 9:13 pm * Is the patient Alert and Oriented? Yes * How many steps to enter\exit or inside your home? * PCP CASTRO * Pharmacy [facility] * Preadmission Environment Home with Family * ADLs Independent * Other Equipment CANE, WALKER, W/C, HOME 02, TRILOGY, NEBULIZER * List name and contact numbers for known caregivers / representatives who currently or will assist patient after discharge: CARLI GALLAGHER - DAUGHTER -[phone] * Verbal permission to speak to the caregivers and representatives has been obtained from the patient. Yes * Community resources currently utilized None * Additional services required to return to the preadmission environment? No * Can the patient safely return to the preadmission environment? Yes * Has this patient been hospitalized within the prior 30 days at any hospital? No External Providers External Provider: Jp Tamayo [facility] Next Contact Date: Service Request Date: Service Type: Resolution: Reviewer: Comments: Last DP export: 01/20/20 8:27 pm Patient Name: RIVERA PHILLIPS Page [phone] at 1620 All edits/amendments must be made on the electronic document DICTATION DATE: 01/30/201618 PHOTOLITHOGRAPHER: TERRY 01/30/20 161 RPT#: [id number] DC DATE: STATUS: ADM IN [facility] [address] [place] [address] END OF REPORT
--- NOTE | 2020-01-30 17:33 | MORECARE ---
CASE MANAGEMENT DISCHARGE SUMMARY PATIENT: RIVERA PHILLIPS UNIT: [id number] ADM DATE: 01/14/20 AGE: 69 : 49 SEX: M ROOM/BED: D.2306 AUTHOR: SUSHMA CODY PHYSICIAN: REFERRING PHYSICIAN: SHANNAN MISHRA MD DATE OF SERVICE: 01/30/20 Discharge Plan Patient Name: RIVERA PHILLIPS Facility: [facility]:[place] : 1950 Planned Disposition: Anticipated Discharge Date: Discharge Date: Expected LOS: Initial Reviewer: [email or web address] Initial Review Date: 01/14/2020 Generated: 01/30/20 6:33 pm Comments DCP- Discharge Planning Updated by [email or web address]: Joan Guerin on 01/30/20 4:[address] CM spoke with patient's spouse regarding LTACH placement. POPEYE completed for [facility] [phone]. CM faxed referral over and records. CM will continue to follow and assist as needed with discharge planning / needs. DCP- Discharge Planning Updated by [email or web address]: Joan Guerin on 01/20/20 8:[address] Patient Name: RIVERA PHILLIPS Admission Status: ER Accout number: [id number] Admission Date: 01-14-2020 : 1950 Admission Diagnosis:ACUTE AND CHRONIC RESPIRATORY FAILURE WITH HYPERCAPNIA Attending: SHANNAN BANKS Current LOS: 6 Anticipated DC Date: Planned Disposition: Primary Insurance: MEDICARE A & B Discharge Planning Comments: CM met with patient at bedside after explaining CM role and obtaining verbal consent. Patient lives at home with his that is disabled where he is independent with his care and plans to return there upon discharge.CM discussed availability / needs of home health and medical equipment. Patient states that he is really weak and his will not be able to care for him but he doesn't feel that home health will help. CM discussed Inpatient Rehab with patient. Patient wants to think it over before he will agree. Patient states he will have his family drive him home upon discharge. CM will continue to follow and assist as needed with discharge planning / needs. Ruby Software Developer: Joan Guerin Appended by Joan Guerin on 01/20/2020 21:19 CDT: CM looking back through previous admissions that patient has portable and home 02 along with trilogy through [facility]. DCPIA - Discharge Planning Initial Assessment Updated by [email or web address]: Joan Guerin on 01/20/20 9:13 pm * Is the patient Alert and Oriented? Yes * How many steps to enter\exit or inside your home? * PCP CASTRO * Pharmacy [facility] * Preadmission Environment Home with Family * ADLs Independent * Other Equipment CANE, WALKER, W/C, HOME 02, TRILOGY, NEBULIZER * List name and contact numbers for known caregivers / representatives who currently or will assist patient after discharge: CARLI GALLAGHER - BRINA -[phone] * Verbal permission to speak to the caregivers and representatives has been obtained from the patient. Yes * Community resources currently utilized None * Additional services required to return to the preadmission environment? No * Can the patient safely return to the preadmission environment? Yes * Has this patient been hospitalized within the prior 30 days at any hospital? No Last DP export: 01/30/20 3:20 p Patient Name: RIVERA PHILLIPS Page [id number] at 1733 All edits/amendments must be made on the electronic document DICTATION DATE: 01/30/201732 POLICE DETECTIVE: TERRY 01/30/201732 RPT#: [id number] DC DATE: STATUS: ADM IN [facility] [address] [place] [address] END OF REPORT
--- NOTE | 2020-01-30 19:10 | NUR ---
UPDATED VOICES NO OTHER QUESTIONS.
[2020-01-31] VITALS (23 sets, daily range): BP systolic 104–192; BP diastolic 60–156
--- NOTE | 2020-01-31 07:35 | NUR ---
CPAP TRIAL STARTING NOW.
--- NOTE | 2020-01-31 08:17 | NUR ---
REPORT RECEIVED. PT ON CONTACT PRECAUTIONS. ON VENT. SETTINGS PER RT. PT HAS OGT WITH [facility]. HAS BEEN PAUSED FOR CPAP TRIALS. ANNEALING FURNACE OPERATOR RNS D/C A-LINE. DRESSING TO BACK ON RIGHT SIDE CHANGED. PT HAS KULWANT. HAS RIGHT SUBC CENTRAL LINE. PLASMALYTE AND CARDIZEM INFUSING. PT IN CONTROLLED AFIB. FENT PAUSED FOR CPAP TRIALS. VSS. WILL CONTINUE TO MONITOR.
[2020-01-31 09:14] LABS: BASOPHILS 0.1 % (0-2); HEMATOCRIT 30.5 % (42.0-54.0); HEMOGLOBIN 9.3 g/dL (13.5-17.5); IMMATURE GRANULOCYTES 0.2 % (0-5); LYMPHOCYTES 4.1 % (15-50); MCH 30.2 pg (26.0-34.0); MCHC 30.5 g/dL (31.0-37.0); MONOCYTES 3.9 % (2-11); NEUTROPHILS 89.7 % (40-80); PLATELET COUNT 122 10x3/uL (130-400); RBC 3.08 10x6/uL (4.20-6.10); RDW 16.7 % (11.5-14.5); WBC 12.3 10x3/uL (4.8-10.8)
--- NOTE | 2020-01-31 09:14 | NUR ---
LATE TO DRAW VANC LAB. WILL WAIT FOR RESULTS BEFORE HANGING. GETTING PT READY TO HAVE BRONCHOSCOPY. PLAN TO EXTUBATE AFTER.
[2020-01-31 09:34] LABS: ALBUMIN 2.5 g/dL (3.4-5.0); ALKALINE PHOSPHATASE 45 U/L (30-120); ALT (SGPT) 13 U/L (10-68); BILIRUBIN - TOTAL 1.65 mg/dL (0.2-1.3); CALC OSMOLALITY 301 mosm/kg (275-300); CALCIUM 8.3 mg/dL (8.5-10.1); CARBON DIOXIDE 37.4 mmol/L (21.0-32.0); CHLORIDE - SERUM 107 mmol/L (98-107); CREATININE - SERUM 0.8 mg/dL (0.6-1.3); GLUCOSE 103 mg/dL (74-106); PROTEIN - SERUM 5.1 g/dL (6.4-8.2); SODIUM 150 mmol/L (136-145); UREA NITROGEN 23 mg/dL (7-18); VANCOMYCIN - TROUGH 18.9 ug/mL (10.0-20.0); eGFR NON AFRICAN AMERICAN > 90 mL/min (90-120)
[2020-01-31 09:35] LABS: POTASSIUM - SERUM 2.9 mmol/L (3.5-5.1)
--- NOTE | 2020-01-31 09:45 | NUR ---
DR DELGADO ON PHONE WITH FAMILY AT THIS TIME.
--- NOTE | 2020-01-31 10:33 | NUR ---
PT EXTUBATED. PLACED ON BIPAP AT 40%.
--- NOTE | 2020-01-31 12:30 | NUR ---
UNABLE TO DO SWALLOW EVAL WITH SPEECH PATHOLOGIST D/T DESATTING ON HIGH FLOW OXYGEN. DROPPED TO LOW 80S. INCREASED HIGH FLOW TO 11L. WILL MONITOR.
--- NOTE | 2020-01-31 13:00 | NUR ---
PT PLACED BACK ON BIPAP.
--- NOTE | 2020-01-31 13:41 | NUR ---
DR CHUNG ROUNDKAILA ON PT.
--- NOTE | 2020-01-31 14:14 | NUR ---
CHG BATH GIVEN. APRESOLINE GIVEN PRN FOR ELEVATED BP. PROCALAMINE STARTED. WILL CONTINUE TO MONITOR.
[2020-01-31 14:34] LABS: MACROPHAGES BF 3 %; NEUT - BF 94 %
--- NOTE | 2020-01-31 16:54 | NUR ---
POTASSIUM 2.[address] RHODES. NEW ORDERS BEING PLACED.
[2020-02-01] VITALS (52 sets, daily range): BP systolic 90–227; BP diastolic 42–181
--- NOTE | 2020-02-01 07:37 | NUR ---
Nutrition follow-up: Pt extubated 01/30 Per speech pt not safe for po intake at this time. Procalamine PPN started 75 ml/hr Labs reviewed; Na elevated: 150 Wt: 289# Pt on BIPAP. If pt remains unsafe for oral intake, recommend PEG tube placement and Jevity 1.5 pauline started at 25 with increase to goal rate of 60 ml/hr. RDN following.
--- NOTE | 2020-02-01 08:05 | NUR ---
CARDIOLOGY VISUALLY IMPAIRED TEACHERWALDO, NOTIFIED OF PT HR AND BP. TOLD TO TRY TO WEAN THE NITRO DRIP AND START CARDIZEM AT 5MG/HR.
--- NOTE | 2020-02-01 09:13 | NUR ---
DR DELGADO DID BRONCHOSCOPY AND INTUBATION ON PT. FENTANYL DRIP STARTED. VERSED GIVEN. CARDIZEM DRIP HANGING PER CARDIOLOGY. WILL TITRATE NITRO DRIP DOWN. VENT SETTINGS PER RT. CHEST XRAY ORDERED. WILL CONTINUE TO MONITOR.
--- NOTE | 2020-02-01 09:48 | NUR ---
CHEST XRAY DONE. OGT/ETT PLACEMENT VERIFIED.
[2020-02-01 11:01] LABS: BASOPHILS 0.1 % (0-2); EOSINOPHILS 0.9 % (0-7); HEMATOCRIT 28.7 % (42.0-54.0); HEMOGLOBIN 8.7 g/dL (13.5-17.5); IMMATURE GRANULOCYTES 0.3 % (0-5); LYMPHOCYTES 3.1 % (15-50); MCH 29.8 pg (26.0-34.0); MCHC 30.3 g/dL (31.0-37.0); MCV 98.3 fL (80.0-100.0); MEAN PLATELET VOLUME 12.3 fL (7.4-10.4); MONOCYTES 4.8 % (2-11); NEUTROPHILS 90.8 % (40-80); PLATELET COUNT 138 10x3/uL (130-400); RBC 2.92 10x6/uL (4.20-6.10); RDW 16.6 % (11.5-14.5); WBC 11.1 10x3/uL (4.8-10.8)
[2020-02-01 11:28] LABS: ALKALINE PHOSPHATASE 39 U/L (30-120); ALT (SGPT) 10 U/L (10-68); BILIRUBIN - TOTAL 1.22 mg/dL (0.2-1.3); CALC OSMOLALITY 299 mosm/kg (275-300); CALCIUM 8.1 mg/dL (8.5-10.1); CARBON DIOXIDE 39.3 mmol/L (21.0-32.0); CHLORIDE - SERUM 107 mmol/L (98-107); CREATININE - SERUM 0.8 mg/dL (0.6-1.3); GLUCOSE 116 mg/dL (74-106); POTASSIUM - SERUM 3.3 mmol/L (3.5-5.1); PROTEIN - SERUM 4.9 g/dL (6.4-8.2); SODIUM 149 mmol/L (136-145); UREA NITROGEN 20 mg/dL (7-18); eGFR NON AFRICAN AMERICAN > 90 mL/min (90-120)
--- NOTE | 2020-02-01 11:56 | NUR ---
PT REPOSITIONED. VSS. WILL CONTINUE TO MONITOR.
--- NOTE | 2020-02-01 13:12 | NUR ---
NITRO BEING TITRATED DOWN PER PROTOCOL.
--- NOTE | 2020-02-01 13:32 | NUR ---
SPOKE WITH INFECTION CONTROL ABOUT PT BEING ON CONTACT PRECAUTIONS D/T BEDBUGS. NONE WERE SENT TO CONFIRM THIS. I HAVE NOT SEEN ANY BEDBUGS THE PAST 2 DAYS I HAVE TAKEN CARE PT. PER PORSCHE, OKTOM TO TAKE PT OUT OF ISOLATION.
--- NOTE | 2020-02-01 14:59 | NUR ---
OT NOTE: PT TO BE DCD TODAY FROM OT SERVICES UNTIL ABLE TO PARTICIPATE IN THERAPY. HE WAS INTUBATED AGAIN HE WAS NOT ABLE TO TOLERATE WEANING FROM VENT. WILL RE ASSESS PT IMPROVES. JUAQUIN RENEE, OTR/L
[2020-02-01 17:08] LABS: ACID FAST SMEAR Negative (()); AFB SPECIMEN PROCESSING Concentration (())
--- NOTE | 2020-02-01 19:59 | MORECARE ---
CASE MANAGEMENT DISCHARGE SUMMARY PATIENT: RIVERA PHILLIPS UNIT: [id number] ADM DATE: 01/14/20 AGE: 69 : 49 SEX: M ROOM/BED: D.2306 AUTHOR: SUSHMA CODY PHYSICIAN: REFERRING PHYSICIAN: SHANNAN MISHRA MD DATE OF SERVICE: 02/01/20 Discharge Plan Patient Name: RIVERA PHILLIPS Facility: [facility]:[place] : 1950 Planned Disposition: Anticipated Discharge Date: Discharge Date: Expected LOS: Initial Reviewer: [email or web address] Initial Review Date: 01/14/2020 Generated: 02/01/20 8:58 pm Comments DCP- Discharge Planning Updated by [email or web address]: Joan Guerin on 02/01/20 6:[address] Patient being re-intubated this am. Dr. Power stated that patient is not stable for transfer at this time. Patient will most likely need trach and PEG soon. CM will continue to follow and assist as needed with discharge planning / needs. DCP- Discharge Planning Updated by [id number]: Joan Guerin on 02/01/20 6:[address] LATE ENTRY 01/31/20 CM received call with [facility] has accepted patient for [facility]ACH. Patient is getting bronch and possible extubation. Will plan for discharge in am. CM will continue to follow and assist as needed with discharge planning / needs. DCP- Discharge Planning Updated by [email or web address]: Joan Guerin on 01/30/20 4:[address] CM spoke with patient's spouse regarding LTACH placement. POPEYE completed for [facility] [phone]. CM faxed referral over and records. CM will continue to follow and assist as needed with discharge planning / needs. DCP- Discharge Planning Updated by [email or web address]: Joan Guerin on 01/20/20 8:[address] Patient Name: RIVERA PHILLIPS Admission Status: ER Accout number: [id number] Admission Date: 01-14-2020 : 1950 Admission Diagnosis:ACUTE AND CHRONIC RESPIRATORY FAILURE WITH HYPERCAPNIA Attending: SHANNAN BANKS Current LOS: 6 Anticipated DC Date: Planned Disposition: Primary Insurance: MEDICARE A & B Discharge Planning Comments: CM met with patient at bedside after explaining CM role and obtaining verbal consent. Patient lives at home with his that is disabled where he is independent with his care and plans to return there upon discharge.CM discussed availability / needs of home health and medical equipment. Patient states that he is really weak and his will not be able to care for him but he doesn't feel that home health will help. CM discussed Inpatient Rehab with patient. Patient wants to think it over before he will agree. Patient states he will have his family drive him home upon discharge. CM will continue to follow and assist as needed with discharge planning / needs. Dialysis Clinical Manager: Joan Guerin Appended by Joan Guerin on 01/20/2020 21:19 CDT: CM looking back through previous admissions that patient has portable and home 02 along with trilogy through [facility]. DCPIA - Discharge Planning Initial Assessment Updated by [email or web address]: Joan Guerin on 01/20/20 9:13 pm * Is the patient Alert and Oriented? Yes * How many steps to enter\exit or inside your home? * PCP CASTRO * Pharmacy [facility] * Preadmission Environment Home with Family * ADLs Independent * Other Equipment CANE, WALKER, W/C, HOME 02, TRILOGY, NEBULIZER * List name and contact numbers for known caregivers / representatives who currently or will assist patient after discharge: CARLI GALLAGHER - BRINA -[phone] * Verbal permission to speak to the caregivers and representatives has been obtained from the patient. Yes * Community resources currently utilized None * Additional services required to return to the preadmission environment? No * Can the patient safely return to the preadmission environment? Yes * Has this patient been hospitalized within the prior 30 days at any hospital? No Last DP export: 01/30/20 4:34 p Patient Name: RIVERA PHILLIPS Page [id number] at 9 All edits/amendments must be made on the electronic document DICTATION DATE: 02/01/201957 MANAGER FIELD SERVICES: TERRY 02/01/201957 RPT#: [id number] DC DATE: STATUS: ADM IN [facility] [address] [place] [address] END OF REPORT
[2020-02-02] VITALS (25 sets, daily range): BP systolic 113–168; BP diastolic 57–112
[2020-02-02 06:33] LABS: CALC OSMOLALITY 292 mosm/kg (275-300); CALCIUM 7.6 mg/dL (8.5-10.1); CARBON DIOXIDE 34.5 mmol/L (21.0-32.0); CHLORIDE - SERUM 110 mmol/L (98-107); CREATININE - SERUM 0.9 mg/dL (0.6-1.3); GLUCOSE 85 mg/dL (74-106); POTASSIUM - SERUM 3.5 mmol/L (3.5-5.1); SODIUM 147 mmol/L (136-145); UREA NITROGEN 19 mg/dL (7-18); eGFR NON AFRICAN AMERICAN 89 mL/min (90-120)
--- NOTE | 2020-02-02 07:00 | NUR ---
PT REPORT RECEIVED FROM BODY TECHNICIAN/PAINTER NURSE. NO ACUTE SIGNS OF DISTRESS NOTED. PT RESTING IN BED. SHIFT ASSESSMENT COMPLETED. WILL CONTINUE TO MONITOR
[2020-02-02 07:19] LABS: BASOPHILS 0.1 % (0-2); EOSINOPHILS 2.8 % (0-7); HEMATOCRIT 25.8 % (42.0-54.0); IMMATURE GRANULOCYTES 0.3 % (0-5); LYMPHOCYTES 7.2 % (15-50); MCH 30.1 pg (26.0-34.0); MEAN PLATELET VOLUME 12.6 fL (7.4-10.4); MONOCYTES 6.5 % (2-11); NEUTROPHILS 83.1 % (40-80); PLATELET COUNT 129 10x3/uL (130-400); RBC 2.66 10x6/uL (4.20-6.10); RDW 16.8 % (11.5-14.5); WBC 9.8 10x3/uL (4.8-10.8)
--- NOTE | 2020-02-02 09:21 | NUR ---
DR DELGADO AT BEDSIDE. UPDATE GIVEN. ORDER TO HOLD VANC GIVEN. WILL CONTINUE TO MONITOR
--- NOTE | 2020-02-02 11:00 | NUR ---
PT RESTING IN BED. REASSESSMENT COMPLETED. NO ACUTE SIGNS OF DISTRESS NOTED. WILL CONTINUE TO MONITOR
--- NOTE | 2020-02-02 13:00 | NUR ---
SPOKE WITH PT TO GET CONSENT FOR BRONCH TODAY. SHE GAVE CONSENT. WILL CONTINUE TO MONITOR
--- NOTE | 2020-02-02 13:55 | NUR ---
DR DELGADO AT BEDSIDE. PREPARING TO PERFORM BRONCHOSCOPY. WILL CONTINUE TO MONITOR
--- NOTE | 2020-02-02 14:20 | NUR ---
BRONCH COMPLETED. PT TOLERATED WELL. WILL CONTINUE TO MONITOR
--- NOTE | 2020-02-02 15:00 | NUR ---
REASSESSMENT COMPLETED. NO ACUTE SIGNS OF DISTRESS NOTED. WILL CONTINUE TO MONITOR
--- NOTE | 2020-02-02 15:27 | NUR ---
INCREASED PEEP T0 10
--- NOTE | 2020-02-02 17:00 | NUR ---
PT RESTING IN BED COMFORTABLY. NO COMPLAINTS NOTED AT THIS TIME. WILL CONTINUE TO MONITOR
[2020-02-03] VITALS (22 sets, daily range): BP systolic 122–192; BP diastolic 54–113
[2020-02-03 05:53] LABS: BASOPHILS 0.3 % (0-2); EOSINOPHILS 4.5 % (0-7); HEMATOCRIT 27.3 % (42.0-54.0); HEMOGLOBIN 8.3 g/dL (13.5-17.5); IMMATURE GRANULOCYTES 0.3 % (0-5); LYMPHOCYTES 8.8 % (15-50); MCH 29.5 pg (26.0-34.0); MCHC 30.4 g/dL (31.0-37.0); MCV 97.2 fL (80.0-100.0); MEAN PLATELET VOLUME 11.6 fL (7.4-10.4); MONOCYTES 8.8 % (2-11); NEUTROPHILS 77.3 % (40-80); PLATELET COUNT 134 10x3/uL (130-400); RBC 2.81 10x6/uL (4.20-6.10); RDW 16.6 % (11.5-14.5)
[2020-02-03 06:12] LABS: ANION GAP 9.5 mmol/L (8-16); CALCIUM 8.1 mg/dL (8.5-10.1); CARBON DIOXIDE 35.1 mmol/L (21.0-32.0); CREATININE - SERUM 1.1 mg/dL (0.6-1.3); POTASSIUM - SERUM 3.6 mmol/L (3.5-5.1)
--- NOTE | 2020-02-03 08:30 | NUR ---
BEDSIDE REPORT RECEIVED FROM ZORAN SPRINGER. SHIFT ASSESSMENT COMPLETED PER FLOWSHEET, SEE FLOWSHEET FOR INFORMATION. PT INTUBATED AND SEDATED FOLLOWS COMMANDS ANSWERS YES NO QUESTIONS APPROPRIATELY. PT MOVING HEAD SIDEWAYS AND TUBE TAMER CAME UNDONE AND ETT WAS SLIGHTLY OUT OF PLACE, ADVANCED ETT SLIGHTLY. AWATING CXR RESULTS. PT AGITATED AND VERSED GIVEN, PT THEN GOES INTO BRADYCARDIA OF 40'S WHILE ASLEEP. PT AWOKE TO STIMULI AND HEART REATE INCREASED TO 60. WILL CONT TO MONITOR.
--- NOTE | 2020-02-03 08:30 | NUR ---
FEEDING TUBE ADVANCED. AWAITING CXR RESULTS. VERIFIED BY AUSCULTATION, PLACED ON LIS PER . WILL CONT TO MONITOR.
--- NOTE | 2020-02-03 09:00 | NUR ---
AT BEDSIDE. NEW ORDERS RECEIVED. WILL CONT TO MONITOR.
[2020-02-03 09:10] LABS: FUNGUS STAIN Final report (())
--- NOTE | 2020-02-03 09:32 | NUR ---
Nutrition follow-up: NPO; intubated; awake Trach/PEG pending Labs reviewed Wt: 284# Recommend Jevity 1.5 @ 40 ml/hr with gradual increase to goal rate of 65 ml/hr. Flush tube with 150 ml H2O q [address]N following.
--- NOTE | 2020-02-03 11:00 | NUR ---
REASSESSMENT COMPLETED PER FLOWSHEET, SEE FLOWSHEET FOR INFORMATION. PT REPOSITIONED PER COMFORT. PT GURGLING, RT PUT MORE AIR IN ETT CUFF. PT EXPERIENCING BRADYCARDIA, CARDIZEM DRIP TURNED OFF. WILL CONT TO MONITOR.
[2020-02-03 13:10] LABS: FUNGUS STAIN Final report (())
--- NOTE | 2020-02-03 14:35 | NUR ---
AT BEDSIDE. TRACH PLACED AT BEDSIDE. VSS. WILL CONT TO MONITOR.
--- NOTE | 2020-02-03 15:00 | NUR ---
REASSESSMENT COMPLETED PER FLOWSHEET, SEE FLOWSHEET FOR INFORMATION. PT ON FRESH TRACH PROTOCOL, PT SUPINE IN BED WITH [address] WILL CONT TO MONITOR. VSS.
--- NOTE | 2020-02-03 17:00 | NUR ---
PT RESTING IN BED WITH EYES CLOSED, PT STATES "MY EYE HURTS" WHILE RUBBING IT VIGOROUSLY. INSTRUCTED PT TO STOP RUBBING HER EYE BECAUSE THAT IS WHY IT IS HURTING SHE IS RUBBING IT SO HARD AND CONTINOUSLY. ASSESSED EYE REDNESS NOTED SURROUNDING EYE, NO ACUTE DISTRESS NOTED. VSS. WILL CONT TO MONITOR.
[2020-02-04] VITALS (24 sets, daily range): BP systolic 143–187; BP diastolic 69–92
--- NOTE | 2020-02-04 06:12 | NUR ---
1900-ASSESSMENT COMPLETED. ON VENT. TRACH INTACT. FRESH TRACH PROTOCOL. 2100- ORAL CARE PROVIDED. VSS 2300-PATIENT TRYING TO MOVE ARMS TOWARDS HEAD AND KICKING KNEES UP. VERSED GIVEN PRN FOR AGITATION 0100-VSS. DENIES ANY NEEDS. FOLLOWING COMMANDS. [id number] COMPLETED. NO CHANGES SINCE LAST ASSESSMENT. 0500-VSS. ORAL CARE PROVIDED
[2020-02-04 06:30] LABS: BASOPHILS 0.1 % (0-2); EOSINOPHILS 3.7 % (0-7); HEMATOCRIT 27.2 % (42.0-54.0); HEMOGLOBIN 8.5 g/dL (13.5-17.5); IMMATURE GRANULOCYTES 0.3 % (0-5); LYMPHOCYTES 7.3 % (15-50); MCHC 31.3 g/dL (31.0-37.0); MCV 96.1 fL (80.0-100.0); MEAN PLATELET VOLUME 12.2 fL (7.4-10.4); MONOCYTES 10.3 % (2-11); NEUTROPHILS 78.3 % (40-80); PLATELET COUNT 149 10x3/uL (130-400); RBC 2.83 10x6/uL (4.20-6.10); RDW 16.2 % (11.5-14.5); WBC 9.2 10x3/uL (4.8-10.8)
[2020-02-04 06:31] LABS: CALC OSMOLALITY 283 mosm/kg (275-300); CALCIUM 8.1 mg/dL (8.5-10.1); CARBON DIOXIDE 32.6 mmol/L (21.0-32.0); CHLORIDE - SERUM 103 mmol/L (98-107); GLUCOSE 84 mg/dL (74-106); SODIUM 143 mmol/L (136-145); UREA NITROGEN 12 mg/dL (7-18); eGFR NON AFRICAN AMERICAN 78 mL/min (90-120)
--- NOTE | 2020-02-04 07:00 | NUR ---
BEDSIDE REPORT RECEIVED. SHIFT ASSESSMENT COMPLETED PER FLOWSHEET, SEE FLOWSHEET FOR INFORMATION. PT TRACHED AND SEDATED. PT APPEARS MORE HOPEFUL SINCE TRACHED, PT SMILED WHEN I ASKED HIM IF HE'S FEELING BETTER. PT DENIES ANY ACUTE NEEDS OR DISTRESS AT THIS TIME. INLINE SUCTIONED. VSS. WILL CONT TO MONITOR.
--- NOTE | 2020-02-04 09:00 | NUR ---
INLINE TRACH SUCTIONED. AT BEDSIDE. REORIENTED PT TO CALL LIGHT AND NURSES BUTTON. VSS. WILL CONT TO MONITOR.
--- NOTE | 2020-02-04 11:00 | NUR ---
CHG BEDBATH WITH COMPLETE LINEN CHANGE COMPLETED. REASSESSMENT COMPLETED PER FLOWSHEET, SEE FLOWSHEET FOR INFORMATION. CHANGED RIGHT LATERAL CHEST TUBE DRESSING, CHANGED RIGHT THORACOTOMY DRESSING, CHANGED DRESSING ON LEFT SANTOS, CHANGED DRESSING ON COCCYX. VSS. NO ACUTE NEEDS OR DISTRESS NOTED AT THIS TIME. PT RESTING IN BED WITH EYES CLOSED. WILL CONT TO MONITOR.
--- NOTE | 2020-02-04 13:00 | NUR ---
REPOSITIONED PT. RT AT BEDSIDE, PT TRIED TO HIT AND KICK RT. PRN MEDICATIONS GIVEN, WILL CONT TO MONITOR.
--- NOTE | 2020-02-04 15:00 | NUR ---
REASSESSMENT COMPLETED PER FLOWSHEET, SEE FLOWSHEET FOR INFORMATION. PT IS SHAKING, TEMP WNL, PT DENIES ANY PAIN OR DISCOMFORT. WHEN ASKED WHY HE IS SHAKING HE SHRUGS HIS SHOULDERS. NO ACUTE NEEDS OR DISTRESS NOTED AT THIS TIME. VSS. WILL CONT TO MONITOR.
--- NOTE | 2020-02-04 15:40 | NUR ---
PUT PT ON CPAP TRIAL. VSS, NO ACUTE NEEDS OR DISTRESS NOTED AT THIS TIME. WILL CONT TO MONITOR.
--- NOTE | 2020-02-04 16:06 | NUR ---
PT ON FULL VENT SUPPORT, PT TOLERATED CPAP TRIAL WELL. WILL CONT TO MONITOR.
--- NOTE | 2020-02-04 17:00 | NUR ---
PT RESTING IN BED WITH EYES CLOSED. PT KEEPS PICKING HIS LEFT LEG UP. PT AGREES TO BEING COMFORTABLE. VSS. WILL CONT TO MONITOR.
--- NOTE | 2020-02-04 23:35 | NUR ---
190-ASSESSMENT COMPLETED. PT MOVING IN BED AND KICKING FEET. 1912-INCREASED SEDATION PER ORDERS 2099-REPOSITIONED, ORAL CARE PROVIDED. [id number] COMPLETED. NO CHANGES SINCE LAST ASSESSMENT. REPOSITIONED
[2020-02-05] VITALS (24 sets, daily range): BP systolic 110–195; BP diastolic 56–94
--- NOTE | 2020-02-05 01:00 | NUR ---
REPOSITIONED. PATIENT KICKING LEGS UP AT TIMES.
--- NOTE | 2020-02-05 03:00 | NUR ---
RE-ASSESSMENT COMPLETED. NO CHANGES SINCE LAST ASSESSMENT
--- NOTE | 2020-02-05 05:00 | NUR ---
REPOSITIONED, ORAL CARE PROVIDED
[2020-02-05 05:38] LABS: BASOPHILS 0.1 % (0-2); EOSINOPHILS 3.5 % (0-7); HEMATOCRIT 24.5 % (42.0-54.0); HEMOGLOBIN 7.7 g/dL (13.5-17.5); IMMATURE GRANULOCYTES 0.3 % (0-5); LYMPHOCYTES 13.5 % (15-50); MCH 29.7 pg (26.0-34.0); MCHC 31.4 g/dL (31.0-37.0); MCV 94.6 fL (80.0-100.0); MEAN PLATELET VOLUME 11.2 fL (7.4-10.4); MONOCYTES 11.1 % (2-11); NEUTROPHILS 71.5 % (40-80); PLATELET COUNT 142 10x3/uL (130-400); RBC 2.59 10x6/uL (4.20-6.10); RDW 16.2 % (11.5-14.5); WBC 7.3 10x3/uL (4.8-10.8)
[2020-02-05 05:49] LABS: CALC OSMOLALITY 280 mosm/kg (275-300); CARBON DIOXIDE 34.5 mmol/L (21.0-32.0); CHLORIDE - SERUM 102 mmol/L (98-107); CREATININE - SERUM 0.9 mg/dL (0.6-1.3); GLUCOSE 75 mg/dL (74-106); MAGNESIUM - SERUM 1.4 mg/dL (1.8-2.4); PHOSPHOROUS 2.3 mg/dL (2.5-4.9); POTASSIUM - SERUM 3.1 mmol/L (3.5-5.1); SODIUM 142 mmol/L (136-145); UREA NITROGEN 9 mg/dL (7-18); eGFR NON AFRICAN AMERICAN 89 mL/min (90-120)
--- NOTE | 2020-02-05 07:00 | NUR ---
BEDSIDE REPORT RECEIVED. SHIFT ASSESSMENT COMPLETED PER FLOWSHEET, SEE FLOWSHEET FOR INFORMATION. PT TRACHED AND SEDATED. NOTED RIGHT LEG WEAKNESS. PT DENIES ANY ACUTE NEEDS OR DISTRESS AT THIS TIME. ORAL CARE GIVEN, INLINE SUCTIONED. VSS. WILL CONT TO MONITOR.
--- NOTE | 2020-02-05 09:00 | NUR ---
0900 MEDICATIONS GIVEN. PT APPEARS AGITATED, THRASHING HANDS AND RIGHT LEG VIGOURSLY. REORIENTED AND CALMED PT DOWN. NO ACUTE NEEDS OR DISTRESS NOTED AT THIS TIME. SPOKE WITH ON THE PHONE, UPDATE GIVEN. AT BEDSIDE, NEW ORDERS RECEIVED. VSS. WILL CONT TO MONITOR.
--- NOTE | 2020-02-05 09:15 | NUR ---
PT PUT ON CPAP TRIAL. WILL CONT TO MONITOR.
--- NOTE | 2020-02-05 11:00 | NUR ---
REASSESSMENT COMPLETED PER FLOWSHEET, SEE FLOWSHEET FOR INFORMATION. TOOK PT TO CT WITH RT AT BEDSIDE. PT BACK IN 2305 WITH RT AT BEDSIDE, REPOSITIONED PT PER COMFORT. AWAITING ON TO GET HERE. AT BEDSIDE. VSS. WILL CONT TO MONITOR. PT PUT BACK ON FULL VENT SUPPORT.
--- NOTE | 2020-02-05 13:00 | NUR ---
PT RESTING IN BED WATCHING TV. DENIES ANY ACUTE NEEDS OR DISTRESS. ORAL CARE GIVEN PER COMFORT. VSS. COPIOUS AMOUNTS OF DARK BROWN SECRETIONS SUCTIONED. WILL CONT TO MONITOR.
[2020-02-05 13:33] LABS: CALC OSMOLALITY 278 mosm/kg (275-300); CALCIUM 8.1 mg/dL (8.5-10.1); CARBON DIOXIDE 34.7 mmol/L (21.0-32.0); CHLORIDE - SERUM 101 mmol/L (98-107); CREATININE - SERUM 0.9 mg/dL (0.6-1.3); GLUCOSE 86 mg/dL (74-106); POTASSIUM - SERUM 3.4 mmol/L (3.5-5.1); SODIUM 141 mmol/L (136-145); UREA NITROGEN 9 mg/dL (7-18); eGFR NON AFRICAN AMERICAN 89 mL/min (90-120)
[2020-02-05 13:41] LABS: BASOPHILS 0.2 % (0-2); EOSINOPHILS 4.1 % (0-7); HEMATOCRIT 25.5 % (42.0-54.0); IMMATURE GRANULOCYTES 0.3 % (0-5); LYMPHOCYTES 9.7 % (15-50); MCH 29.9 pg (26.0-34.0); MCHC 31.4 g/dL (31.0-37.0); MCV 95.1 fL (80.0-100.0); MEAN PLATELET VOLUME 11.9 fL (7.4-10.4); MONOCYTES 9.1 % (2-11); NEUTROPHILS 76.6 % (40-80); PLATELET COUNT 140 10x3/uL (130-400); RBC 2.68 10x6/uL (4.20-6.10); RDW 16.3 % (11.5-14.5); WBC 8.6 10x3/uL (4.8-10.8)
--- NOTE | 2020-02-05 15:00 | NUR ---
REASSESMENT COMPLETED PER FLOWSHEET, SEE FLOWSHEET FOR INFORMATION. PT RESTING IN BED WATCHING TV. SPOKE WITH ON THE PHONE, CONSENTS FOR EGD AND PEG SIGNED. VSS. NO ACUTE NEEDS OR DISTRESS NOTED AT THIS TIME. WILL CONT TO MONITOR.
--- NOTE | 2020-02-05 17:00 | NUR ---
STARTED IV POTASSIUM CHLORIDE PER ORDERS FOR POTASSIUM OF 3.4. PT RESTING IN BED WATCHING TV. NO ACUTE NEEDS OR DISTRESS NOTED AT THIS TIME. VSS. WILL CONT TO MONITOR.
--- NOTE | 2020-02-05 17:00 | NUR ---
LARGE LIQUID BM NOTED. BEDBATH GIVEN, COMPLETE LINEN CHANGED. VSS. WILL CONT TO MONITOR.
--- NOTE | 2020-02-05 22:07 | NUR ---
1899-ASSESSMENT COMPLETED. ON VENT VIA TRACH. REPOSITIONED. 2029- CALLED, PASSCODE GIVEN, UPDATE GIVEN. 2099-REPOSITIONED. PATIENT WATCHING TV. DENIES ANY NEEDS.
--- NOTE | 2020-02-05 23:00 | NUR ---
CHG BATH WITH COMPLETE LINEN CHANGE. LARGE, LOOSE BM NOTED. REPOSITIONED.
[2020-02-06] VITALS (24 sets, daily range): BP systolic 147–189; BP diastolic 64–94
--- NOTE | 2020-02-06 01:00 | NUR ---
REPOSITIONED. ORAL CARE PROVIDED
--- NOTE | 2020-02-06 03:00 | NUR ---
RE-ASSESSMENT COMPLETED. NO CHANGES SINCE LAST ASSESSMENT
[2020-02-06 03:49] LABS: BASOPHILS 0.3 % (0-2); HEMATOCRIT 26.1 % (42.0-54.0); HEMOGLOBIN 8.3 g/dL (13.5-17.5); IMMATURE GRANULOCYTES 0.7 % (0-5); LYMPHOCYTES 14.1 % (15-50); MCH 29.6 pg (26.0-34.0); MCHC 31.8 g/dL (31.0-37.0); MCV 93.2 fL (80.0-100.0); MEAN PLATELET VOLUME 12.4 fL (7.4-10.4); NEUTROPHILS 69.9 % (40-80); PLATELET COUNT 151 10x3/uL (130-400); RDW 16.7 % (11.5-14.5)
[2020-02-06 04:03] LABS: CALC OSMOLALITY 277 mosm/kg (275-300); CARBON DIOXIDE 33.2 mmol/L (21.0-32.0); CHLORIDE - SERUM 102 mmol/L (98-107); CREATININE - SERUM 0.9 mg/dL (0.6-1.3); GLUCOSE 79 mg/dL (74-106); MAGNESIUM - SERUM 1.6 mg/dL (1.8-2.4); POTASSIUM - SERUM 3.5 mmol/L (3.5-5.1); SODIUM 141 mmol/L (136-145); UREA NITROGEN 7 mg/dL (7-18); eGFR NON AFRICAN AMERICAN 89 mL/min (90-120)
[2020-02-06 04:14] LABS: APTT 37.4 SECONDS (22.8-39.4); INR 1.36 (0.85-1.17); PROTIME 16.6 SECONDS (11.6-15.0)
--- NOTE | 2020-02-06 05:04 | NUR ---
REPLACING POTASSIUM AND MAGNESIUM FROM ELECTROLYTE PROTOCOL. REPOSITIONED
--- NOTE | 2020-02-06 06:26 | NUR ---
BP 189/84. GIVEN PRN APRESOLINE PER ORDERS. PATIENT ASKING FOR FOOD AND A COKE. EDUCATED ON NPO STATUS.
--- NOTE | 2020-02-06 09:10 | NUR ---
Nutrition follow-up: Pt with trach to vent PEG scheduled for 02/06 LABS reviewed Wt: 258# Procalamine PPN started @ 75 ml/hr NPO 2/[address] following.
--- NOTE | 2020-02-06 16:14 | MORECARE ---
CASE MANAGEMENT DISCHARGE SUMMARY PATIENT: RIVERA PHILLIPS UNIT: [id number] ADM DATE: 01/14/20 AGE: 69 : 49 SEX: M ROOM/BED: D.2306 AUTHOR: ESCOBARDOC PHYSICIAN: REFERRING PHYSICIAN: SHANNAN MISHRA MD DATE OF SERVICE: 02/06/20 Discharge Plan Patient Name: RIVERA PHILLIPS Facility: [facility]:[place] : 1950 Planned Disposition: Anticipated Discharge Date: Discharge Date: Expected LOS: Initial Reviewer: [email or web address] Initial Review Date: 01/14/2020 Generated: 02/06/20 5:13 pm Comments DCP- Discharge Planning Updated by [email or web address]: Joan Apoorva on 02/06/20 3:[address] CM FAXED UPDATED CLINICAL TO LTACH - IN PREPARATION FOR POSSIBLE DISCHARGE ON THU. PLANNING PEG PLACEMENT ON TUESDAY 02/06. DCP- Discharge Planning Updated by [email or web address]: Joan Apoorva on 02/01/20 6:[address] Patient being re-intubated this am. Dr. Power stated that patient is not stable for transfer at this time. Patient will most likely need trach and PEG soon. CM will continue to follow and assist as needed with discharge planning / needs. DCP- Discharge Planning Updated by [email or web address]: Joan Apoorva on 02/01/20 6:[address] LATE ENTRY 01/31/20 CM received call with [facility] has accepted patient for [facility]ACH. Patient is getting bronch and possible extubation. Will plan for discharge in am. CM will continue to follow and assist as needed with discharge planning / needs. DCP- Discharge Planning Updated by [id number]: Joan Apoorva on 01/30/20 4:[address] CM spoke with patient's spouse regarding LTACH placement. POPEYE completed for [facility] [phone]. CM faxed referral over and records. CM will continue to follow and assist as needed with discharge planning / needs. DCP- Discharge Planning Updated by [email or web address]: Joan Apoorva on 01/20/20 8:[address] Patient Name: RIVERA PHILLIPS Admission Status: ER Accout number: [id number] Admission Date: 01-14-2020 : 1950 Admission Diagnosis:ACUTE AND CHRONIC RESPIRATORY FAILURE WITH HYPERCAPNIA Attending: SHANNAN BANKS Current LOS: 6 Anticipated DC Date: Planned Disposition: Primary Insurance: MEDICARE A & B Discharge Planning Comments: CM met with patient at bedside after explaining CM role and obtaining verbal consent. Patient lives at home with his that is disabled where he is independent with his care and plans to return there upon discharge.CM discussed availability / needs of home health and medical equipment. Patient states that he is really weak and his will not be able to care for him but he doesn't feel that home health will help. CM discussed Inpatient Rehab with patient. Patient wants to think it over before he will agree. Patient states he will have his family drive him home upon discharge. CM will continue to follow and assist as needed with discharge planning / needs. Contact Acid Plant Operator Helper: Joan Guerin Appended by Joan Guerin on 01/20/2020 21:19 CDT: CM looking back through previous admissions that patient has portable and home 02 along with trilogy through [facility]. DCPIA - Discharge Planning Initial Assessment Updated by [email or web address]: Joan Guerin on 01/20/20 9:13 pm * Is the patient Alert and Oriented? Yes * How many steps to enter\exit or inside your home? * PCP CASTRO * Pharmacy [facility] * Preadmission Environment Home with Family * ADLs Independent * Other Equipment CANE, WALKER, W/C, HOME 02, TRILOGY, NEBULIZER * List name and contact numbers for known caregivers / representatives who currently or will assist patient after discharge: CARLI GALLAGHER - DAUGHTER -[phone] * Verbal permission to speak to the caregivers and representatives has been obtained from the patient. Yes * Community resources currently utilized None * Additional services required to return to the preadmission environment? No * Can the patient safely return to the preadmission environment? Yes * Has this patient been hospitalized within the prior 30 days at any hospital? No Last DP export: 02/01/20 6:59 p Patient Name: RIVERA PHILLIPS Page [id number] at 1614 All edits/amendments must be made on the electronic document DICTATION DATE: 02/06/201612 WASTE OIL PUMPER: TERRY 02/06/201612 RPT#: [id number] DC DATE: STATUS: ADM IN [facility] [address] [facility] [place] [address] END OF REPORT
--- NOTE | 2020-02-06 16:21 | MORECARE ---
CASE MANAGEMENT DISCHARGE SUMMARY PATIENT: RIVERA PHILLIPS UNIT: [id number] ADM DATE: 01/14/20 AGE: 69 : 49 SEX: M ROOM/BED: D.2306 AUTHOR: ESCOBARDOC PHYSICIAN: REFERRING PHYSICIAN: SHANNAN MISHRA MD DATE OF SERVICE: 02/06/20 Discharge Plan Patient Name: RIVERA PHILLIPS Facility: [facility]:[place] : 1950 Planned Disposition: Anticipated Discharge Date: Discharge Date: Expected LOS: Initial Reviewer: [email or web address] Initial Review Date: 01/14/2020 Generated: 02/06/20 5:20 pm Comments DCP- Discharge Planning Updated by [email or web address]: Joan Apoorva on 02/06/20 3:[address] CM FAXED UPDATED CLINICAL TO [facility] - IN PREPARATION FOR POSSIBLE DISCHARGE ON THU. PLANNING PEG PLACEMENT ON TUESDAY 02/06. DCP- Discharge Planning Updated by [email or web address]: Joan Apoorva on 02/01/20 6:[address] Patient being re-intubated this am. Dr. Power stated that patient is not stable for transfer at this time. Patient will most likely need trach and PEG soon. CM will continue to follow and assist as needed with discharge planning / needs. DCP- Discharge Planning Updated by [id number]: Joan Apoorva on 02/01/20 6:[address] LATE ENTRY 01/31/20 CM received call with [facility] has accepted patient for [facility]. Patient is getting bronch and possible extubation. Will plan for discharge in am. CM will continue to follow and assist as needed with discharge planning / needs. DCP- Discharge Planning Updated by [email or web address]: Joan Apoorva on 01/30/20 4:[address] CM spoke with patient's spouse regarding LTACH placement. POPEYE completed for [facility] [phone]. CM faxed referral over and records. CM will continue to follow and assist as needed with discharge planning / needs. DCP- Discharge Planning Updated by [email or web address]: Joan Apoorva on 01/20/20 8:[address] Patient Name: RIVERA PHILLIPS Admission Status: ER Accout number: [id number] Admission Date: 01-14-2020 : 1950 Admission Diagnosis:ACUTE AND CHRONIC RESPIRATORY FAILURE WITH HYPERCAPNIA Attending: SHANNAN BANKS Current LOS: 6 Anticipated DC Date: Planned Disposition: Primary Insurance: MEDICARE A & B Discharge Planning Comments: CM met with patient at bedside after explaining CM role and obtaining verbal consent. Patient lives at home with his that is disabled where he is independent with his care and plans to return there upon discharge.CM discussed availability / needs of home health and medical equipment. Patient states that he is really weak and his will not be able to care for him but he doesn't feel that home health will help. CM discussed Inpatient Rehab with patient. Patient wants to think it over before he will agree. Patient states he will have his family drive him home upon discharge. CM will continue to follow and assist as needed with discharge planning / needs. Coat Repair Inspector: Joan Guerin Appended by Joan Guerin on 01/20/2020 21:19 CDT: CM looking back through previous admissions that patient has portable and home 02 along with trilogy through [employer]. DCPIA - Discharge Planning Initial Assessment Updated by [email or web address]: Joan Guerin on 01/20/20 9:13 pm * Is the patient Alert and Oriented? Yes * How many steps to enter\exit or inside your home? * PCP CASTRO * Pharmacy [facility] * Preadmission Environment Home with Family * ADLs Independent * Other Equipment CANE, WALKER, W/C, HOME 02, TRILOGY, NEBULIZER * List name and contact numbers for known caregivers / representatives who currently or will assist patient after discharge: CARLI GALLAGHER - DAUGHTER -[phone] * Verbal permission to speak to the caregivers and representatives has been obtained from the patient. Yes * Community resources currently utilized None * Additional services required to return to the preadmission environment? No * Can the patient safely return to the preadmission environment? Yes * Has this patient been hospitalized within the prior 30 days at any hospital? No Last DP export: 02/06/20 3:14 p Patient Name: RIVERA PHILLIPS Page [phone] at 1621 All edits/amendments must be made on the electronic document DICTATION DATE: 02/06/201619 FISCAL OFFICER: TERRY 02/06/201619 RPT#: [id number] DC DATE: STATUS: ADM IN [facility] [address] [facility] [place] [address] END OF REPORT
--- NOTE | 2020-02-06 19:00 | NUR ---
REPORT RECEIVED. PT ON VENT WITH TRACH. PT DISORIENTED TO TIME AND SITUATION, REORIENTED NEEDED. ASSESSMENT COMPLETE,SEE FLOWSHEET. RT SUBCLAVIAN CVL INFUSING, SEE IV FLOWSHEET. WILL CONTINUE TO MONITOR.
--- NOTE | 2020-02-06 21:00 | NUR ---
PT RESTING IN BED, NO ACUTE DISTRESS NOTED.
--- NOTE | 2020-02-06 23:00 | NUR ---
REASSESSMENT COMPLETED, SEE FLOWSHEET.
[2020-02-07] VITALS (23 sets, daily range): BP systolic 105–184; BP diastolic 53–121
--- NOTE | 2020-02-07 01:00 | NUR ---
PT RESTING IN BED, NO ACUTE DISTRESS NOTED. WILL CONTINUE TO MONITOR.
--- NOTE | 2020-02-07 03:00 | NUR ---
REASSESSMENT COMPLETED, SEE FLOWSHEET. NO ACUTE DISTRESS NOTED AT THIS TIME.
--- NOTE | 2020-02-07 05:00 | NUR ---
REPOSITIONED FOR COMFORT. CHG BATH GIVEN.
[2020-02-07 05:09] LABS: BASOPHILS 0.2 % (0-2); EOSINOPHILS 5.9 % (0-7); HEMATOCRIT 26.5 % (42.0-54.0); HEMOGLOBIN 8.4 g/dL (13.5-17.5); IMMATURE GRANULOCYTES 0.7 % (0-5); MCH 29.6 pg (26.0-34.0); MCHC 31.7 g/dL (31.0-37.0); MCV 93.3 fL (80.0-100.0); MEAN PLATELET VOLUME 12.1 fL (7.4-10.4); MONOCYTES 9.4 % (2-11); NEUTROPHILS 70.8 % (40-80); PLATELET COUNT 153 10x3/uL (130-400); RBC 2.84 10x6/uL (4.20-6.10); RDW 16.4 % (11.5-14.5); WBC 6.1 10x3/uL (4.8-10.8)
[2020-02-07 05:23] LABS: ALBUMIN 2.7 g/dL (3.4-5.0); ALKALINE PHOSPHATASE 51 U/L (30-120); ALT (SGPT) 12 U/L (10-68); BILIRUBIN - TOTAL 1.53 mg/dL (0.2-1.3); CALC OSMOLALITY 268 mosm/kg (275-300); CALCIUM 7.9 mg/dL (8.5-10.1); CARBON DIOXIDE 32.8 mmol/L (21.0-32.0); CHLORIDE - SERUM 99 mmol/L (98-107); CREATININE - SERUM 0.8 mg/dL (0.6-1.3); GLUCOSE 89 mg/dL (74-106); MAGNESIUM - SERUM 1.7 mg/dL (1.8-2.4); PHOSPHOROUS 2.5 mg/dL (2.5-4.9); POTASSIUM - SERUM 3.4 mmol/L (3.5-5.1); PROTEIN - SERUM 5.5 g/dL (6.4-8.2); SODIUM 136 mmol/L (136-145); UREA NITROGEN 8 mg/dL (7-18); VANCOMYCIN - TROUGH 8.9 ug/mL (10.0-20.0); eGFR NON AFRICAN AMERICAN > 90 mL/min (90-120)
--- NOTE | 2020-02-07 07:00 | NUR ---
REPORT RECEIVED. ASSESSMENT COMPLETE PER FLOW SHEET. VSS. PT RESTING COMFORTABLY ORAL ENDOTRACH CARE ADM. REPOSITIONED FOR COMFORT NO NEW CHANGES WILL CONTINUE TO MONITOR
--- NOTE | 2020-02-07 11:00 | NUR ---
REASSESSMENT COMPLETE PER FLOW SHEET. VSS. PT RESTING COMFORTABLYWILL CONTINUE TO MONITOR
--- NOTE | 2020-02-07 19:00 | NUR ---
REPORT RECEIVED, PT SEDATED ON VENT WITH TRACH. ASSESSMENT COMPLETED, SEE FLOWSHEET. CT X2 TO WATER SEAL, RT SUBCLAVIAN CVL INFUSING, SEE IV FLOWSHEET. WILL CONTINUE TO MONITOR.
--- NOTE | 2020-02-07 21:00 | NUR ---
PT SEDATED ON VENT, NO ACUTE DISTRESS NOTED.
--- NOTE | 2020-02-07 23:00 | NUR ---
REASSESSMENT COMPLETED, SEE FLOWSHEET.
[2020-02-08] VITALS (22 sets, daily range): BP systolic 110–178; BP diastolic 49–98
--- NOTE | 2020-02-08 01:00 | NUR ---
PT SEDATED, FOLLOWS COMMANDS. REPOSITIONED FOR COMFORT.
--- NOTE | 2020-02-08 03:00 | NUR ---
REASSESSMENT COMPLETE. PT BECOMING INCREASINGLY AGITATED AND AGGRESSIVE. PT GRASPING AT NURSE'S ARMS AND PULLING. WILL CONTINUE TO MONITOR.
--- NOTE | 2020-02-08 05:00 | NUR ---
PT SEDATED ON VENT, NO CHANGE SINCE PREVIOUS STATUS.
[2020-02-08 05:54] LABS: BASOPHILS 0.1 % (0-2); EOSINOPHILS 3.6 % (0-7); HEMATOCRIT 25.9 % (42.0-54.0); HEMOGLOBIN 8.2 g/dL (13.5-17.5); IMMATURE GRANULOCYTES 0.7 % (0-5); LYMPHOCYTES 11.2 % (15-50); MCH 29.5 pg (26.0-34.0); MCHC 31.7 g/dL (31.0-37.0); MCV 93.2 fL (80.0-100.0); MEAN PLATELET VOLUME 12.1 fL (7.4-10.4); MONOCYTES 9.6 % (2-11); NEUTROPHILS 74.8 % (40-80); PLATELET COUNT 157 10x3/uL (130-400); RBC 2.78 10x6/uL (4.20-6.10); RDW 15.9 % (11.5-14.5); WBC 7.5 10x3/uL (4.8-10.8)
[2020-02-08 06:39] LABS: ALKALINE PHOSPHATASE 58 U/L (30-120); ALT (SGPT) 11 U/L (10-68); BILIRUBIN - TOTAL 1.58 mg/dL (0.2-1.3); CALC OSMOLALITY 273 mosm/kg (275-300); CALCIUM 8.6 mg/dL (8.5-10.1); CARBON DIOXIDE 31.4 mmol/L (21.0-32.0); CHLORIDE - SERUM 101 mmol/L (98-107); CREATININE - SERUM 0.8 mg/dL (0.6-1.3); GLUCOSE 94 mg/dL (74-106); MAGNESIUM - SERUM 2.1 mg/dL (1.8-2.4); PHOSPHOROUS 2.4 mg/dL (2.5-4.9); POTASSIUM - SERUM 3.7 mmol/L (3.5-5.1); SODIUM 138 mmol/L (136-145); UREA NITROGEN 8 mg/dL (7-18); eGFR NON AFRICAN AMERICAN > 90 mL/min (90-120)
--- NOTE | 2020-02-08 07:15 | NUR ---
REPORT RECEIVED. ASSESSMENT CMPLETE PER FLOW SHEET. VSS PT RESTING COMOFRABLY WILL CONTINUETO MONITOR
--- NOTE | 2020-02-08 07:25 | NUR ---
Nutrition consult for TF: PEG placed 02/07/[address]N ordered Jevity 1.5 pauline to start @ 25 ml/hr with increase to goal rate of 65 ml/hr with 150 ml H2O flsuh Q 4 hours HOB > 30 degrees Thank you for the consult. RDN following.
--- NOTE | 2020-02-08 09:20 | NUR ---
PT ATTEMPT TO GET UP OOB, REPOSITIONED.
--- NOTE | 2020-02-08 11:00 | NUR ---
REASSESSMENT COMPLETE PER FLOW SHEET. VSS. PT RESTING COMFORTABLY WILL CONTINIUE TO MONITOR
--- NOTE | 2020-02-08 11:25 | MORECARE ---
CASE MANAGEMENT DISCHARGE SUMMARY PATIENT: RIVERA PHILLIPS UNIT: [id number] ADM DATE: 01/14/20 AGE: 69 : 49 SEX: M ROOM/BED: D.2306 AUTHOR: SUSHMA CODY PHYSICIAN: REFERRING PHYSICIAN: SHANNAN MISHRA MD DATE OF SERVICE: 02/08/20 Discharge Plan Patient Name: IRVERA PHILLIPS Facility: [facility]:[place] : 1950 Planned Disposition: Anticipated Discharge Date: Discharge Date: Expected LOS: Initial Reviewer: [email or web address] Initial Review Date: 01/14/2020 Generated: 02/08/20 12:24 pm Comments DCP- Discharge Planning Updated by [email or web address]: Joan Guerin on 02/08/20 10:[address] Called and spoke with Latoya at [facility] and she requested updates. CM faxed updates awaiting response of approval. CM will continue to follow and assist as needed with discharge planning / needs. DCP- Discharge Planning Updated by [email or web address]: Joan Guerin on 02/06/20 3:[address] CM FAXED UPDATED CLINICAL TO [facility] - IN PREPARATION FOR POSSIBLE DISCHARGE ON THU. PLANNING PEG PLACEMENT ON TUESDAY 02/06. DCP- Discharge Planning Updated by [id number]: Joan Guerin on 02/01/20 6:[address] Patient being re-intubated this am. Dr. Power stated that patient is not stable for transfer at this time. Patient will most likely need trach and PEG soon. CM will continue to follow and assist as needed with discharge planning / needs. DCP- Discharge Planning Updated by [id number]: Joan Guerin on 02/01/20 6:[address] LATE ENTRY 01/31/20 CM received call with [facility] has accepted patient for [facility]. Patient is getting bronch and possible extubation. Will plan for discharge in am. CM will continue to follow and assist as needed with discharge planning / needs. DCP- Discharge Planning Updated by [id number]: Joan Guerin on 01/30/20 4:[address] CM spoke with patient's spouse regarding LTACH placement. POPEYE completed for [facility] [phone]. CM faxed referral over and records. CM will continue to follow and assist as needed with discharge planning / needs. DCP- Discharge Planning Updated by [email or web address]: Joan Guerin on 01/20/20 8:[address] Patient Name: RIVERA PHILLIPS Admission Status: ER Accout number: [id number] Admission Date: 01-14-2020 : 1950 Admission Diagnosis:ACUTE AND CHRONIC RESPIRATORY FAILURE WITH HYPERCAPNIA Attending: SHANNAN BANKS Current LOS: 6 Anticipated DC Date: Planned Disposition: Primary Insurance: MEDICARE A & B Discharge Planning Comments: CM met with patient at bedside after explaining CM role and obtaining verbal consent. Patient lives at home with his that is disabled where he is independent with his care and plans to return there upon discharge.CM discussed availability / needs of home health and medical equipment. Patient states that he is really weak and his will not be able to care for him but he doesn't feel that home health will help. CM discussed Inpatient Rehab with patient. Patient wants to think it over before he will agree. Patient states he will have his family drive him home upon discharge. CM will continue to follow and assist as needed with discharge planning / needs. Survey Party Chief: Joan Guerin Appended by Joan Guerin on 01/20/2020 21:19 CDT: CM looking back through previous admissions that patient has portable and home 02 along with trilogy through [employer]. DCPIA - Discharge Planning Initial Assessment Updated by [email or web address]: Joan Guerin on 01/20/20 9:13 pm * Is the patient Alert and Oriented? Yes * How many steps to enter\exit or inside your home? * PCP CASTRO * Pharmacy [facility] * Preadmission Environment Home with Family * ADLs Independent * Other Equipment CANE, WALKER, W/C, HOME 02, TRILOGY, NEBULIZER * List name and contact numbers for known caregivers / representatives who currently or will assist patient after discharge: CARLI GALLAGHER - DAUGHTER -[phone] * Verbal permission to speak to the caregivers and representatives has been obtained from the patient. Yes * Community resources currently utilized None * Additional services required to return to the preadmission environment? No * Can the patient safely return to the preadmission environment? Yes * Has this patient been hospitalized within the prior 30 days at any hospital? No Last DP export: 02/06/20 3:21 p Patient Name: RIVERA PHILLIPS Page [phone] at 1125 All edits/amendments must be made on the electronic document DICTATION DATE: 02/08/201123 BLOCKER HEATED METAL FORMS: TERRY 02/08/201123 RPT#: [id number] DC DATE: STATUS: ADM IN [facility] [address] [place] [address] END OF REPORT
--- NOTE | 2020-02-08 15:00 | NUR ---
REASSESSMENT COMPLETE PER FLOW SHEET. VSS. PT RESTING COMOFRTALY WILL CONTINUE TO MONITOR
--- NOTE | 2020-02-08 18:17 | MORECARE ---
CASE MANAGEMENT DISCHARGE SUMMARY PATIENT: RIVERA PHILLIPS UNIT: [id number] ADM DATE: 01/14/20 AGE: 69 : 49 SEX: M ROOM/BED: D.2306 AUTHOR: ESCOBAR,DOC PHYSICIAN: REFERRING PHYSICIAN: SHANNAN MISHRA MD DATE OF SERVICE: 02/08/20 Discharge Plan Patient Name: RIVERA PHILLIPS Facility: [facility]:[place] : 1950 Planned Disposition: Anticipated Discharge Date: Discharge Date: Expected LOS: Initial Reviewer: [email or web address] Initial Review Date: 01/14/2020 Generated: 02/08/20 7:16 pm Comments DCP- Discharge Planning Updated by [id number]: Joan Guerin on 02/08/20 5:[address] CM called [facility]oya for update on status to admit to LTACH. Latoya stated that they have filled their last bed today. She will get back with CM in am to see when they may have a discharge and are able to admit. CM will continue to follow and assist as needed with discharge planning / needs. DCP- Discharge Planning Updated by [id number]: Joan Furr on 02/08/20 10:[address] Called and spoke with Latoya at [facility] and she requested updates. CM faxed updates awaiting response of approval. CM will continue to follow and assist as needed with discharge planning / needs. DCP- Discharge Planning Updated by [email or web address]: Joan Apoorva on 02/06/20 3:[address] CM FAXED UPDATED CLINICAL TO [facility] - IN PREPARATION FOR POSSIBLE DISCHARGE ON THU. PLANNING PEG PLACEMENT ON TUESDAY 02/06. DCP- Discharge Planning Updated by [id number]: Joan Apoorva on 02/01/20 6:[address] Patient being re-intubated this am. Dr. Power stated that patient is not stable for transfer at this time. Patient will most likely need trach and PEG soon. CM will continue to follow and assist as needed with discharge planning / needs. DCP- Discharge Planning Updated by [id number]: Joan Aporova on 02/01/20 6:[address] LATE ENTRY 01/31/20 CM received call with [facility] has accepted patient for [facility]. Patient is getting bronch and possible extubation. Will plan for discharge in am. CM will continue to follow and assist as needed with discharge planning / needs. DCP- Discharge Planning Updated by [email or web address]: Joan Guerin on 01/30/20 4:[address] CM spoke with patient's spouse regarding LTACH placement. POPEYE completed for [facility] [phone]. CM faxed referral over and records. CM will continue to follow and assist as needed with discharge planning / needs. DCP- Discharge Planning Updated by JOE: Joan Guerin on 01/20/20 8:[address] Patient Name: RIVERA PHILLIPS Admission Status: ER Accout number: [id number] Admission Date: 01-14-2020 : 1950 Admission Diagnosis:ACUTE AND CHRONIC RESPIRATORY FAILURE WITH HYPERCAPNIA Attending: SHANNAN BANKS Current LOS: 6 Anticipated DC Date: Planned Disposition: Primary Insurance: MEDICARE A & B Discharge Planning Comments: CM met with patient at bedside after explaining CM role and obtaining verbal consent. Patient lives at home with his that is disabled where he is independent with his care and plans to return there upon discharge.CM discussed availability / needs of home health and medical equipment. Patient states that he is really weak and his will not be able to care for him but he doesn't feel that home health will help. CM discussed Inpatient Rehab with patient. Patient wants to think it over before he will agree. Patient states he will have his family drive him home upon discharge. CM will continue to follow and assist as needed with discharge planning / needs. Content Specialist: Joan Guerin Appended by Joan Guerin on 01/20/2020 21:19 CDT: CM looking back through previous admissions that patient has portable and home 02 along with trilogy through [employer]. DCPIA - Discharge Planning Initial Assessment Updated by [email or web address]: Joan Guerin on 01/20/20 9:13 pm * Is the patient Alert and Oriented? Yes * How many steps to enter\exit or inside your home? * PCP CASTRO * Pharmacy [facility] * Preadmission Environment Home with Family * ADLs Independent * Other Equipment CANE, WALKER, W/C, HOME 02, TRILOGY, NEBULIZER * List name and contact numbers for known caregivers / representatives who currently or will assist patient after discharge: CARLI GALLAGHER - BRINA -[phone] * Verbal permission to speak to the caregivers and representatives has been obtained from the patient. Yes * Community resources currently utilized None * Additional services required to return to the preadmission environment? No * Can the patient safely return to the preadmission environment? Yes * Has this patient been hospitalized within the prior 30 days at any hospital? No Last DP export: 02/08/20 10:25 a Patient Name: RIVERA PHILLIPS Page [phone] at 1817 All edits/amendments must be made on the electronic document DICTATION DATE: 02/08/201815 CUSTOMER SUPPLY COORDINATOR: TERRY 02/08/201815 RPT#: [id number] DC DATE: STATUS: ADM IN [facility] [address] [place] [address] END OF REPORT
--- NOTE | 2020-02-08 19:30 | NUR ---
PT SEDATED AND ON VENTILATOR VIA TRACH. LUNG SOUNDS CRACKLES/DIMINISHED. ORAL/TRACH CARE COMPLETE, THICK SECRETIONS PRESENT. S1S2 HEARD, PERIPHERAL PULSES PRESENT. BOWEL SOUNDS ACTIVE IN ALL QUADRANTS. BLUM CATH INTACT WITH PEDRO URINE TO BEDSIDE DRAINAGE. CT X2 TO R LATERAL CHEST INTACT WITH SEROSANG DRAINAGE. PT REPOSITIONED WITH PROMINENCES BRIDGED. CPOC.
--- NOTE | 2020-02-08 20:00 | NUR ---
COMPLETE CHG BATH AND LINEN CHANGE PROVIDED. BLUM CATH CARE COMPLETED.
--- NOTE | 2020-02-08 22:00 | NUR ---
NO VISITORS FOR THE VISITATION.
[2020-02-09] VITALS (24 sets, daily range): BP systolic 93–187; BP diastolic 40–104
--- NOTE | 2020-02-09 01:30 | NUR ---
PT REPOSITIONED WITH PROMINENCES BRIDGED. ORAL CARE PROVIDED. VSS, NO CHANGES AT THIS TIME. CPOC.
--- NOTE | 2020-02-09 03:30 | NUR ---
REASSESSMENT COMPLETE, NO NEW CHANGES AT THIS TIME. PT REPOSITIONED WITH PROMINENCES BRIDGED. ORAL CARE PROVIDED. CPOC.
--- NOTE | 2020-02-09 05:30 | NUR ---
PT REPOSITIONED WITH PROMINENCES BRIDGED. ORAL CARE PROVIDED. VSS. CPOC.
[2020-02-09 05:52] LABS: BASOPHILS 0.2 % (0-2); EOSINOPHILS 6.8 % (0-7); HEMATOCRIT 24.2 % (42.0-54.0); IMMATURE GRANULOCYTES 0.2 % (0-5); LYMPHOCYTES 12.2 % (15-50); MCH 29.3 pg (26.0-34.0); MCV 94.5 fL (80.0-100.0); MONOCYTES 11.5 % (2-11); NEUTROPHILS 69.1 % (40-80); PLATELET COUNT 141 10x3/uL (130-400); RBC 2.56 10x6/uL (4.20-6.10); RDW 15.9 % (11.5-14.5)
[2020-02-09 06:10] LABS: ALBUMIN 2.4 g/dL (3.4-5.0); ALKALINE PHOSPHATASE 58 U/L (30-120); BILIRUBIN - TOTAL 0.85 mg/dL (0.2-1.3); CALC OSMOLALITY 273 mosm/kg (275-300); CALCIUM 8.1 mg/dL (8.5-10.1); CARBON DIOXIDE 34.2 mmol/L (21.0-32.0); CHLORIDE - SERUM 103 mmol/L (98-107); CREATININE - SERUM 0.7 mg/dL (0.6-1.3); GLUCOSE 108 mg/dL (74-106); POTASSIUM - SERUM 3.9 mmol/L (3.5-5.1); PROTEIN - SERUM 5.2 g/dL (6.4-8.2); SODIUM 137 mmol/L (136-145); UREA NITROGEN 10 mg/dL (7-18); eGFR NON AFRICAN AMERICAN > 90 mL/min (90-120)
[2020-02-09 06:12] LABS: ALT (SGPT) 14 U/L (10-68)
[2020-02-09 06:59] LABS: HEMOGLOBIN 7.5 g/dL (13.5-17.5); WBC 4.7 10x3/uL (4.8-10.8)
--- NOTE | 2020-02-09 09:54 | NUR ---
PS TRIAL 03/23 2 HRS
--- NOTE | 2020-02-09 13:32 | OP ---
PATIENT NAME: RIVERA PHILLIPS MEDICAL RECORD: [id number] :[birth year] LOCATION:D.ICU D.2306 ADMISSION DATE:01/14/20 SURGEON: AG MATA MD DATE OF OPERATION: 02/07/2020 PREOPERATIVE DIAGNOSES: 1. Ventilatory failure. 2. Acute malnutrition. POSTOPERATIVE DIAGNOSES: 1. Ventilatory failure. 2. Acute malnutrition. 3. Severe fundal and antral gastritis with multiple ulcers, some of which contained a black material in the base, indicating recent bleeding. 4. Distal esophagitis. PROCEDURES: 1. Esophagogastroduodenoscopy with antral biopsies. 2. Percutaneous endoscopic gastrostomy tube placement, 20-Yemeni. SURGEON: Ag Mata MD DIAMOND FINISHING SUPERVISOR: None. BLOOD LOSS: Minimal. ANESTHESIA: Local with IV sedation and IV paralytic. COMPLICATIONS: None. A consent form was signed. IV sedation was induced. The abdomen was sterilely prepped and draped. A bite block was inserted into the mouth. Gastroscope was advanced into the mouth and then hypopharynx. The esophagus was easily intubated as were the stomach and duodenum. Upon withdrawal, retroflexed and angulus views were obtained. Antral biopsies were obtained. I was able to transilluminate the abdomen. I noted an area in the epigastrium. It was going to be optimal for placement of the gastrostomy tube. This area was infiltrated with local anesthetic. A transverse incision was accomplished. An Angiocath-type catheter was inserted through the incision and I punctured the anterior fundus of the stomach on the first try. A wire was advanced. The wire was grasped with an endoscopic snare and was withdrawn out through the mouth. The wire was attached to a pull-type of gastrostomy tube, which was then pulled into place. I then re-endoscoped the patient's esophagus and stomach. There had been no false passage or perforation. The gastroscope was then withdrawn under direct vision. The G-tube was shortened. Hub and flange devices were attached. A sterile dressing was applied. OPERATIVE REPORT [id number] RIVERA PHILLIPS TRANSINT:[id number] Voice Confirmation ID: [id number] DOCUMENT ID: [id number] AG MATA MD at 1332 CC: [id number] DICTATION DATE: 02/07/202217 CARDIOLOGY TECHNICIAN: 02/08/20 0809 ADM IN [facility] [address] [place] [place] [id number]
--- NOTE | 2020-02-09 18:53 | MORECARE ---
CASE MANAGEMENT DISCHARGE SUMMARY PATIENT: RIVERA PHILLIPS UNIT: [id number] ADM DATE: 01/14/20 AGE: 69 : 49 SEX: M ROOM/BED: D.2306 AUTHOR: ESCOBAR,DOC PHYSICIAN: REFERRING PHYSICIAN: SHANNAN MISHRA MD DATE OF SERVICE: 02/09/20 Discharge Plan Patient Name: RIVERA PHILLIPS Facility: [facility]:[place] : 1950 Planned Disposition: Anticipated Discharge Date: Discharge Date: Expected LOS: Initial Reviewer: [email or web address] Initial Review Date: 01/14/2020 Generated: 02/09/20 7:52 pm Comments DCP- Discharge Planning Updated by [email or web address]: Joan Guerin on 02/09/20 5:[address] CM called and spoke with Latoya @ [facility] she stated that they are currently full and she may can give CM a better indication as to when a bed will be available on Thursday. CM will speak with physicians and family to see if they are interested in trying another LTACH facility. CM will continue to follow and assist as needed with discharge planning / needs. DCP- Discharge Planning Updated by [id number]: Joan Guerin on 02/08/20 5:[address] CM called Latoya for update on status [facility] Latoya stated that they have filled their last bed today. She will get back with CM in am to see when they may have a discharge and are able to admit. CM will continue to follow and assist as needed with discharge planning / needs. DCP- Discharge Planning Updated by [id number]: Joan Guerin on 02/08/20 10:[address] Called and spoke with Latoya at [facility] and she requested updates. CM faxed updates awaiting response of approval. CM will continue to follow and assist as needed with discharge planning / needs. DCP- Discharge Planning Updated by [id number]: Joan Guerin on 02/06/20 3:[address] CM FAXED UPDATED CLINICAL TO LTACH - IN PREPARATION FOR POSSIBLE DISCHARGE ON THU. PLANNING PEG PLACEMENT ON TUESDAY 02/06. DCP- Discharge Planning Updated by [id number]: Joan Guerin on 02/01/20 6:[address] Patient being re-intubated this am. Dr. Power stated that patient is not stable for transfer at this time. Patient will most likely need trach and PEG soon. CM will continue to follow and assist as needed with discharge planning / needs. DCP- Discharge Planning Updated by [email or web address]: Joan Guerin on 02/01/20 6:[address] LATE ENTRY 01/31/20 CM received call with [facility] has accepted patient for [facility]. Patient is getting bronch and possible extubation. Will plan for discharge in am. CM will continue to follow and assist as needed with discharge planning / needs. DCP- Discharge Planning Updated by [id number]: Joan Guerin on 01/30/20 4:[address] CM spoke with patient's spouse regarding LTACH placement. POPEYE completed for [facility] [phone]. CM faxed referral over and records. CM will continue to follow and assist as needed with discharge planning / needs. DCP- Discharge Planning Updated by [email or web address]: Joan Guerin on 01/20/20 8:[address] Patient Name: RIVERA PHILLIPS Admission Status: ER Accout number: [id number] Admission Date: 01-14-2020 : 1950 Admission Diagnosis:ACUTE AND CHRONIC RESPIRATORY FAILURE WITH HYPERCAPNIA Attending: SHANNAN BANKS Current LOS: 6 Anticipated DC Date: Planned Disposition: Primary Insurance: MEDICARE A & B Discharge Planning Comments: CM met with patient at bedside after explaining CM role and obtaining verbal consent. Patient lives at home with his that is disabled where he is independent with his care and plans to return there upon discharge.CM discussed availability / needs of home health and medical equipment. Patient states that he is really weak and his will not be able to care for him but he doesn't feel that home health will help. CM discussed Inpatient Rehab with patient. Patient wants to think it over before he will agree. Patient states he will have his family drive him home upon discharge. CM will continue to follow and assist as needed with discharge planning / needs. Corporate Sales Manager: Joan Guerin Appended by Joan Guerin on 01/20/2020 21:19 CDT: CM looking back through previous admissions that patient has portable and home 02 along with trilogy through [facility]. DCPIA - Discharge Planning Initial Assessment Updated by [email or web address]: Joan Guerin on 01/20/20 9:13 pm * Is the patient Alert and Oriented? Yes * How many steps to enter\exit or inside your home? * PCP CASTRO * Pharmacy [facility] * Preadmission Environment Home with Family * ADLs Independent * Other Equipment CANE, WALKER, W/C, HOME 02, TRILOGY, NEBULIZER * List name and contact numbers for known caregivers / representatives who currently or will assist patient after discharge: CARLI GALLAGHER - BRINA -[phone] * Verbal permission to speak to the caregivers and representatives has been obtained from the patient. Yes * Community resources currently utilized None * Additional services required to return to the preadmission environment? No * Can the patient safely return to the preadmission environment? Yes * Has this patient been hospitalized within the prior 30 days at any hospital? No Last DP export: 02/08/20 5:17 p Patient Name: RIVERA PHILLIPS Page [id number] at 1853 All edits/amendments must be made on the electronic document DICTATION DATE: 02/09/201851 HOE WORKER: TERRY 02/09/201851 RPT#: [id number] [place] DATE: STATUS: ADM IN [facility] [address] [place] [address] END OF REPORT
[2020-02-10] VITALS (24 sets, daily range): BP systolic 97–181; BP diastolic 41–98
[2020-02-10 06:38] LABS: ALBUMIN 2.7 g/dL (3.4-5.0); ALKALINE PHOSPHATASE 81 U/L (30-120); ALT (SGPT) 15 U/L (10-68); BILIRUBIN - TOTAL 1.89 mg/dL (0.2-1.3); CALC OSMOLALITY 278 mosm/kg (275-300); CALCIUM 8.4 mg/dL (8.5-10.1); CARBON DIOXIDE 34.7 mmol/L (21.0-32.0); CHLORIDE - SERUM 103 mmol/L (98-107); CREATININE - SERUM 0.6 mg/dL (0.6-1.3); GLUCOSE 106 mg/dL (74-106); PHOSPHOROUS 2.9 mg/dL (2.5-4.9); POTASSIUM - SERUM 3.8 mmol/L (3.5-5.1); PROTEIN - SERUM 5.8 g/dL (6.4-8.2); SODIUM 139 mmol/L (136-145); eGFR NON AFRICAN AMERICAN > 90 mL/min (90-120)
[2020-02-10 06:40] LABS: UREA NITROGEN 14 mg/dL (7-18)
[2020-02-10 06:48] LABS: BASOPHILS 0.3 % (0-2); EOSINOPHILS 2.2 % (0-7); IMMATURE GRANULOCYTES 0.8 % (0-5); LYMPHOCYTES 9.2 % (15-50); MCH 29.1 pg (26.0-34.0); MCHC 31.7 g/dL (31.0-37.0); MEAN PLATELET VOLUME 12.7 fL (7.4-10.4); MONOCYTES 10.8 % (2-11); NEUTROPHILS 76.7 % (40-80); PLATELET COUNT 150 10x3/uL (130-400); RDW 17.4 % (11.5-14.5)
[2020-02-10 06:55] LABS: HEMATOCRIT 30.3 % (42.0-54.0); HEMOGLOBIN 9.6 g/dL (13.5-17.5); MCV 91.8 fL (80.0-100.0); WBC 7.8 10x3/uL (4.8-10.8)
--- NOTE | 2020-02-10 07:00 | NUR ---
ASSESSMENT COMPLETE PER FLOWSHEET. AWAKE ALERT AND FOLLOW COMMANDS.
--- NOTE | 2020-02-10 09:48 | NUR ---
Nutrition follow-up: Per day nurse, Tuyet Alanis RN, night nurse turned TF down to 30 mol 2/2 not having any Jevity 1.2 pauline on the floor. Jevity 1.2 pauline had been at goal rate of 65 ml/hr. Jevity 1.2 pauline brought from kithcen and nurse to increase rate. Labs reviewed Trach to vent Wt: 258# RDN following.
--- NOTE | 2020-02-10 17:42 | MORECARE ---
CASE MANAGEMENT DISCHARGE SUMMARY PATIENT: RIVERA PHILLIPS UNIT: [id number] ADM DATE: 01/14/20 AGE: 69 : 49 SEX: M ROOM/BED: D.2306 AUTHOR: ESCOBAR,DOC PHYSICIAN: REFERRING PHYSICIAN: SHANNAN MISHRA MD DATE OF SERVICE: 02/10/20 Discharge Plan Patient Name: RIVERA PHILLIPS Facility: [facility]:[place] : 1950 Planned Disposition: Anticipated Discharge Date: Discharge Date: Expected LOS: Initial Reviewer: [email or web address] Initial Review Date: 01/14/2020 Generated: 02/10/20 6:41 pm DCP- Discharge Planning Updated by [email or web address]: Joan Guerin on 02/09/20 5:[address] CM called and spoke with Latoya @ [facility] she stated that they are currently full and she may can give CM a better indication as to when a bed will be available on Thursday. CM will speak with physicians and family to see if they are interested in trying another LTACH facility. CM will continue to follow and assist as needed with discharge planning / needs. DCP- Discharge Planning Updated by [id number]: Joan Guerin on 02/08/20 5:[address] CM called Latoya for update on status to admit to [facility]. Latoya stated that they have filled their last bed today. She will get back with CM in am to see when they may have a discharge and are able to admit. CM will continue to follow and assist as needed with discharge planning / needs. DCP- Discharge Planning Updated by [email or web address]: Joan Guerin on 02/08/20 10:[address] Called and spoke with Latoya at [facility] and she requested updates. CM faxed updates awaiting response of approval. CM will continue to follow and assist as needed with discharge planning / needs. DCP- Discharge Planning Updated by [email or web address]: Joan Guerin on 02/06/20 3:[address] CM FAXED UPDATED CLINICAL TO LTACH - IN PREPARATION FOR POSSIBLE DISCHARGE ON THU. PLANNING PEG PLACEMENT ON TUESDAY 02/06. DCP- Discharge Planning Updated by [email or web address]: Joan Guerin on 02/01/20 6:[address] Patient being re-intubated this am. Dr. Power stated that patient is not stable for transfer at this time. Patient will most likely need trach and PEG soon. CM will continue to follow and assist as needed with discharge planning / needs. DCP- Discharge Planning Updated by [email or web address]: Joan Guerin on 02/01/20 6:[address] LATE ENTRY 01/31/20 CM received call with [facility] has accepted patient for [facility]. Patient is getting bronch and possible extubation. Will plan for discharge in am. CM will continue to follow and assist as needed with discharge planning / needs. DCP- Discharge Planning Updated by [id number]: Joan Guerin on 01/30/20 4:[address] CM spoke with patient's spouse regarding LTACH placement. POPEYE completed for [facility] [phone]. CM faxed referral over and records. CM will continue to follow and assist as needed with discharge planning / needs. DCP- Discharge Planning Updated by [email or web address]: Joan Guerin on 01/20/20 8:[address] Patient Name: RIVERA PHILLIPS Admission Status: ER Accout number: [id number] Admission Date: 01-14-2020 : 1950 Admission Diagnosis:ACUTE AND CHRONIC RESPIRATORY FAILURE WITH HYPERCAPNIA Attending: SHANNAN BANKS Current LOS: 6 Anticipated DC Date: Planned Disposition: Primary Insurance: MEDICARE A & B Discharge Planning Comments: CM met with patient at bedside after explaining CM role and obtaining verbal consent. Patient lives at home with his that is disabled where he is independent with his care and plans to return there upon discharge.CM discussed availability / needs of home health and medical equipment. Patient states that he is really weak and his will not be able to care for him but he doesn't feel that home health will help. CM discussed Inpatient Rehab with patient. Patient wants to think it over before he will agree. Patient states he will have his family drive him home upon discharge. CM will continue to follow and assist as needed with discharge planning / needs. Hospitality Host: Joan Guerin Appended by Joan Guerin on 01/20/2020 21:19 CDT: CM looking back through previous admissions that patient has portable and home 02 along with trilogy through [facility]. DCPIA - Discharge Planning Initial Assessment Updated by [email or web address]: Joan Guerin on 01/20/20 9:13 pm * Is the patient Alert and Oriented? Yes * How many steps to enter\exit or inside your home? * PCP CASTRO * Pharmacy [facility] * Preadmission Environment Home with Family * ADLs Independent * Other Equipment CANE, WALKER, W/C, HOME 02, TRILOGY, NEBULIZER * List name and contact numbers for known caregivers / representatives who currently or will assist patient after discharge: CARLI GALLAGHER - DAUGHTER -[phone] * Verbal permission to speak to the caregivers and representatives has been obtained from the patient. Yes * Community resources currently utilized None * Additional services required to return to the preadmission environment? No * Can the patient safely return to the preadmission environment? Yes * Has this patient been hospitalized within the prior 30 days at any hospital? No Last DP export: 02/09/20 5:53 p Patient Name: RIVERA PHILLIPS Page 12531 at 1742 All edits/amendments must be made on the electronic document DICTATION DATE: 02/10/201740 BAT BOY/GIRL: TERRY 02/10/201740 RPT#: [id number] [place] DATE: STATUS: ADM IN [facility] [address] [place] [address] END OF REPORT
--- NOTE | 2020-02-10 19:20 | NUR ---
PT CALLED, PASSWORD PROVIDED, UPDATE GIVEN AND ALL QUESTIONS ANSWERED.
--- NOTE | 2020-02-10 21:40 | NUR ---
NO VISITORS PRESENT AT THIS TIME, PT RESTING CALMLY IN BED WATCHING TV, DENIES PAIN OR ANY NEEDS AT THIS TIME.
--- NOTE | 2020-02-10 23:00 | NUR ---
ORAL CARE AND SUCTIONING DONE, PT SOMEWHAT AGITATED, REPOSITIONED FOR COMFORT SUPPORTED WITH WEDGES, HR SR ON CM, WILL MONITOR.
[2020-02-11] VITALS (23 sets, daily range): BP systolic 103–176; BP diastolic 51–85
--- NOTE | 2020-02-11 01:50 | NUR ---
PT RESTING IN BED WITH EYES CLOSED, VSS, CONT POC.
--- NOTE | 2020-02-11 03:20 | NUR ---
PT COUGHING AND VENT ALARMING, ORAL CARE AND SUCTIONING PROVIDED ONCE IN ROOM, PT POSITIONED FOR COMFORT, DENIES ANY NEEDS AT THIS TIME.
[2020-02-11 05:49] LABS: BASOPHILS 0.3 % (0-2); EOSINOPHILS 3.8 % (0-7); HEMATOCRIT 27.9 % (42.0-54.0); HEMOGLOBIN 8.7 g/dL (13.5-17.5); IMMATURE GRANULOCYTES 0.7 % (0-5); LYMPHOCYTES 14.7 % (15-50); MCH 29.2 pg (26.0-34.0); MCHC 31.2 g/dL (31.0-37.0); MCV 93.6 fL (80.0-100.0); MEAN PLATELET VOLUME 12.9 fL (7.4-10.4); MONOCYTES 10.7 % (2-11); NEUTROPHILS 69.8 % (40-80); PLATELET COUNT 149 10x3/uL (130-400); RBC 2.98 10x6/uL (4.20-6.10); RDW 17.3 % (11.5-14.5)
--- NOTE | 2020-02-11 05:51 | NUR ---
PT RESTING IN BED WITH EYES CLOSED, VSS, CONT POC.
[2020-02-11 05:55] LABS: WBC 5.8 10x3/uL (4.8-10.8)
[2020-02-11 06:15] LABS: ALBUMIN 2.5 g/dL (3.4-5.0); ALKALINE PHOSPHATASE 65 U/L (30-120); BILIRUBIN - TOTAL 0.81 mg/dL (0.2-1.3); CALC OSMOLALITY 276 mosm/kg (275-300); CARBON DIOXIDE 35.1 mmol/L (21.0-32.0); CHLORIDE - SERUM 102 mmol/L (98-107); CREATININE - SERUM 0.7 mg/dL (0.6-1.3); GLUCOSE 111 mg/dL (74-106); PROTEIN - SERUM 5.5 g/dL (6.4-8.2); SODIUM 138 mmol/L (136-145); UREA NITROGEN 13 mg/dL (7-18); eGFR NON AFRICAN AMERICAN > 90 mL/min (90-120)
[2020-02-11 06:20] LABS: ALT (SGPT) 20 U/L (10-68)
--- NOTE | 2020-02-11 08:07 | NUR ---
LYING IN BED AWAKE ON VENT VIA TRACH. NO ACUTE DISTRESS NOTED. PT ABLE TO FOLLOW COMMANDS AND ANSWERS YES AND NO QUESTIONS. VSS. REPOSITIONING AND ORAL CARE PROVIDED Q2H. PT NODDED HIS HEAD FOR YES WHEN ASKED IF HE WAS COMFORTABLE. WILL CONTINUE PLAN OF CARE.
--- NOTE | 2020-02-11 08:39 | NUR ---
PEG RESIDUALS NOTED 10ML.
--- NOTE | 2020-02-11 10:33 | NUR ---
PT CONFUSED, ATTEMPTING TO PULL AT TRACH AND TRIED TO GET OUT OF BED. REORIENTATION PROVIDED, AND ASKED PT WHAT HE NEEDED. PT INDICATED HE WAS UNCOMFORTABLE. REPOSITIONING ALSO PROVIDED. PT NOW CALM AND RESTING WITH EYES CLOSED. WILL CONTINUE PLAN OF CARE.
--- NOTE | 2020-02-11 11:01 | NUR ---
SPOKE WITH PTS AT THIS TIME. UPDATES PROVIDED. ALSO RECIEVED CONSENTS FOR BRONCHOSCOPY, WITNESSED BY A SECOND RN. VSS. NO ACUTE DISTRESS NOTED. WILL CONTINUE PLAN OF CARE.
--- NOTE | 2020-02-11 12:56 | NUR ---
SPOKE WITH DR GARAY REGARDING DECRESING H&H LEVEL, NO NEW ORDERS RECIEVED.
--- NOTE | 2020-02-11 13:20 | NUR ---
BRONCHOSCOPY PERFORMED BY DR AMOS, DR AMOS PERSONALLY SPOKE AND UPDATED PTS FAMILY. VSS. NO ACUTE DISTRESS NOTED. WILL CONTINUE PLAN OF CARE.
--- NOTE | 2020-02-11 15:23 | NUR ---
CHG BATH PROVIDED AT THIS TIME. TOTAL LINEN CHANGE PROVIDED. VSS. NO ACUTE DISTRESS NOTED. WILL CONTINUE PLAN OF CARE.
--- NOTE | 2020-02-11 16:55 | NUR ---
LYING IN BED RESTING AT THIS TIME. VSS. NO ACUTE DISTRESS NOTED. CALL LIGHT IN REACH. TURNED Q2H, ORAL CARE PROVIDED Q2H. WILL CONTINUE PLAN OF CARE.
--- NOTE | 2020-02-11 18:04 | NUR ---
DRESSING CHANGE PERFORMED TO RT CHEST SITE (DCD CHEST TUBE SITES). SITES ARE WDL WITH NO REDNESS. NOTED SOME CLEAR YELLOW (SCANT AMOUNT) OF DISCHRAGE TO OLD DRESSINGS. NEW DRESSINGS PLACED PER ORDERS OF PETROLATUM DRESSING WITH 4X4 GAUZE COVERED UP WITH TAGEDERMS. NEW DRESSING PLACED AFTER SITE CLEANSED PER ORDERS. VSS. NO ACUTE DISTRESS NOTED. WILL CONTINUE PLAN OF CARE.
--- NOTE | 2020-02-11 19:20 | NUR ---
RESUMED CARE OF PT, ASSESSMENT PER FLOWSHEET. PT RESTING IN BED WATCHING TV, DENIES ANY NEEDS AT THIS TIME, HR SR ON CM, PPP. ORAL CARE AND SUCTIONING PROVIDED, POSITIONED FOR COMFORT, WILL MONITOR.
--- NOTE | 2020-02-11 21:56 | NUR ---
PT , CARLI CALLED. PASSWORD PROVIDED, UPDATE GIVEN, ALL QUESTIONS ANSWERED.
--- NOTE | 2020-02-11 23:30 | NUR ---
PT RESTING IN BED WITH EYES CLOSED, SB ON CM, CONT POC.
[2020-02-12] VITALS (24 sets, daily range): BP systolic 99–161; BP diastolic 53–93
--- NOTE | 2020-02-12 03:33 | NUR ---
PT RESTING IN BED WITH EYES CLOSED, VSS.
[2020-02-12 06:02] LABS: BASOPHILS 0.3 % (0-2); EOSINOPHILS 3.5 % (0-7); HEMATOCRIT 30.2 % (42.0-54.0); HEMOGLOBIN 9.1 g/dL (13.5-17.5); IMMATURE GRANULOCYTES 0.7 % (0-5); LYMPHOCYTES 13.4 % (15-50); MCH 28.7 pg (26.0-34.0); MCHC 30.1 g/dL (31.0-37.0); MCV 95.3 fL (80.0-100.0); MEAN PLATELET VOLUME 13.3 fL (7.4-10.4); MONOCYTES 12.4 % (2-11); NEUTROPHILS 69.7 % (40-80); PLATELET COUNT 166 10x3/uL (130-400); RBC 3.17 10x6/uL (4.20-6.10); WBC 6.9 10x3/uL (4.8-10.8)
[2020-02-12 06:28] LABS: ALBUMIN 2.8 g/dL (3.4-5.0); ALKALINE PHOSPHATASE 77 U/L (30-120); ALT (SGPT) 15 U/L (10-68); BILIRUBIN - TOTAL 0.69 mg/dL (0.2-1.3); CALC OSMOLALITY 277 mosm/kg (275-300); CALCIUM 8.2 mg/dL (8.5-10.1); CARBON DIOXIDE 36.3 mmol/L (21.0-32.0); CHLORIDE - SERUM 101 mmol/L (98-107); CREATININE - SERUM 0.8 mg/dL (0.6-1.3); GLUCOSE 106 mg/dL (74-106); POTASSIUM - SERUM 4.4 mmol/L (3.5-5.1); PROTEIN - SERUM 6.1 g/dL (6.4-8.2); SODIUM 138 mmol/L (136-145); eGFR NON AFRICAN AMERICAN > 90 mL/min (90-120)
[2020-02-12 06:33] LABS: UREA NITROGEN 17 mg/dL (7-18)
--- NOTE | 2020-02-12 07:26 | NUR ---
SITTING UP IN BED ON VENT VIA TRACH WATCHING TV AT THIS TIME. VSS. NO ACUTE DISTRESS NOTED. PT ABLE TO ANSWER YES AND NO QUESTIONS AND TO FOLLOW COMMANDS. VSS. WILL CONTINUE PLAN OF CARE.
--- NOTE | 2020-02-12 08:28 | NUR ---
PEG RESIDUALS 50ML.
--- NOTE | 2020-02-12 10:35 | NUR ---
PT UP IN BED ON VENT VIA TRACH WATCHING TV. VSS. NO ACUTE DISTRESS NOTED. WILL CONTINUE PLAN OF CARE.
--- NOTE | 2020-02-12 12:00 | NUR ---
WPOKE WITH PTS , UPDATES PROVIDED REGARDING DR AMOS WANTING TO PERFORM A BRONCHOSCOPY TODAY. CONSENT OBTAINED, WITNESSED BY A SECOND RN. VSS. NO ACUTE DISTRESS NOTED. WILL CONTINUE PLAN OF CARE.
--- NOTE | 2020-02-12 13:35 | NUR ---
PTS NOTED AT BEDSIDE TO SEE PT. PT NOTIFIED HER THAT HIS EYE WAS HURTING, HIS EYE APPEARED RED IN COLOR AND PT WAS FREQUENTLY BLINKING. WARM WASHCLOTH PROVIDED AND USED TO HELP CLEANSE EYES AND FACE TO SEE IF IT HELPED THE DISCOMFORT. PT INDICATED THAT HIS EYE STILL FELT UNCOMFORTABLE. AFTER FURTHER ASSESSMENT OF EYE NOTED HIS BOTTOM RIGHT EYELID WAS FLIPPED INWARD SLIGHTLY CAUSING THE IRRITATION. EYELID SITE CLEANSED AGAIN AND THE EYELID BACK TO NORMAL POSITIONING BY ITSELF. PT THEN INDICATED THAT HIS EYE FELT BETTER. VSS. WILL CONTINUE PLAN OF CARE.
--- NOTE | 2020-02-12 14:49 | NUR ---
NOTED INCONTINENT BOWEL MOVEMENT, LARGE LIQUID BROWN. CHG BATH PROVIDED WITH TOTAL LINEN CHANGE. TUBE FEEDS PAUSED DURING THIS EVENT. ALSO AT THIS TIME PT C/O FEELING LIKE HE WAS "GASSY." AFTER A MINUTE PT BEGAN TO THROW UP X 3 TIMES WITH WHAT APPEARS TO BE TUBE FEEDS. AT THIS TIME THE ALREADY PAUSED TUBE FEEDS WERE TURNED OFF. AFTER THIS OCCURRED PTS STOMACH WAS "BURPED" USING SLIP TIP SYRINGE FROM PEG. PT THEN INDICATED THAT HE FELT BETTER. PT NOW DENIES ANY NEEDS OR DISCOMFORTS. WILL CONTINUE TO OBSERVE. DR MUÑOZ PAGED TO NOTIFY OF THIS.
--- NOTE | 2020-02-12 16:09 | NUR ---
SPOKE WITH PTS ON THE PHONE, UPDATES PROVIDED. VSS. NO ACUTE DISTRESS NOTED. WILL CONTIUE PLAN OF CARE.
--- NOTE | 2020-02-12 17:20 | NUR ---
UP IN BED WATCHING TV AT THIS TIME. VSS. NO ACUTE DISTRESS NOTED. PT DENIES ANY NEEDS. CALL LIGHT IN REACH. REPOSITIONING AND ORAL CARE PROVIDED Q2H. WILL CONTINUE PLAN OF CARE.
--- NOTE | 2020-02-12 19:00 | NUR ---
REPORT RECIEVED FROM THE OFF GOING RN. SEE ASSESSMENT IN THE PTS FLOW SHEET. PT ON THE VENT VIA TRACH. PT ABLE TO VOICE HIS NEEDS VIA MOUTHING WORDS. PT DENIES PAIN/NEEDS AT THIS TIME. VSS. CALL LIGHT IN REACH. WILL CONT POC.
--- NOTE | 2020-02-12 21:00 | NUR ---
PT RESTING QUIETLY WITH NO ISSUES. CALL LIGHT IN REACH. VSS. WILL CONT POC.
--- NOTE | 2020-02-12 23:00 | NUR ---
REASSESSMENT COMPLTED. SEE FLOW SHEET. CALL LIGHT IN REACH. WILL CONT POC.
[2020-02-13] VITALS (24 sets, daily range): BP systolic 120–185; BP diastolic 55–86
--- NOTE | 2020-02-13 01:00 | NUR ---
PT RESTING QUIETLY WITH NO ISSUES. CALL LIGHT IN REACH. VSS. WILL CONT POC.
--- NOTE | 2020-02-13 03:00 | NUR ---
REASSESSMENT COMPLETED. SEE FLOW SHEET/MAR. CALL LIGHT IN REACH. WILL COTN POC.
[2020-02-13 05:06] LABS: BASOPHILS 0.4 % (0-2); EOSINOPHILS 2.5 % (0-7); HEMATOCRIT 29.9 % (42.0-54.0); IMMATURE GRANULOCYTES 0.5 % (0-5); LYMPHOCYTES 9.2 % (15-50); MCHC 30.1 g/dL (31.0-37.0); MCV 96.5 fL (80.0-100.0); MEAN PLATELET VOLUME 13.6 fL (7.4-10.4); MONOCYTES 12.6 % (2-11); NEUTROPHILS 74.8 % (40-80); PLATELET COUNT 172 10x3/uL (130-400); RDW 16.9 % (11.5-14.5); WBC 7.5 10x3/uL (4.8-10.8)
[2020-02-13 05:27] LABS: ALBUMIN 2.6 g/dL (3.4-5.0); ALKALINE PHOSPHATASE 84 U/L (30-120); ALT (SGPT) 17 U/L (10-68); BILIRUBIN - TOTAL 0.53 mg/dL (0.2-1.3); CALC OSMOLALITY 278 mosm/kg (275-300); CALCIUM 8.2 mg/dL (8.5-10.1); CARBON DIOXIDE 37.3 mmol/L (21.0-32.0); CHLORIDE - SERUM 102 mmol/L (98-107); CREATININE - SERUM 0.8 mg/dL (0.6-1.3); GLUCOSE 104 mg/dL (74-106); POTASSIUM - SERUM 4.6 mmol/L (3.5-5.1); PROTEIN - SERUM 5.8 g/dL (6.4-8.2); SODIUM 139 mmol/L (136-145); UREA NITROGEN 16 mg/dL (7-18); eGFR NON AFRICAN AMERICAN > 90 mL/min (90-120)
--- NOTE | 2020-02-13 06:14 | NUR ---
PT RESTING WITH NO ISSUES. VSS. CALL LIGHT IN REACH. WILL CONT POC.
--- NOTE | 2020-02-13 08:56 | NUR ---
0800-CPAP TRIAL 06/18 30% 0845-CPAP TRIAL ENDED HAS PATIENT WAS NOT TOLERATING. BECAME SHORT OF BREATH AND DESATING TO 77% PER DR. TRUJILLO SWITCHED PATIENT TO AC 14/5/50% AFTER A FEW MINUTES PATIENT CAME BACK UP TO 96%
--- NOTE | 2020-02-13 10:48 | NUR ---
Nutrition follow-up: Trach to vent; pt failed CPAP trials PEG tube with Jevity 1.5 at goal rate of 65 ml/hr Pt had some N/V over the weekend +BM, loose Pt is now tolerating TF at this time. RDN following.
--- NOTE | 2020-02-13 15:57 | NUR ---
OT NOTE: (AM) PT COMPLETED BUE PROM TOLERATED.(PM) PT COMPLETED BUE PROM . PT COMPLETED AROM FOR HAND FLEXION AND EXTENSION. [id number] THANK YOU,CORINA ALBERTO
--- NOTE | 2020-02-13 18:29 | MORECARE ---
CASE MANAGEMENT DISCHARGE SUMMARY PATIENT: RIVERA PHILLIPS UNIT: [id number] ADM DATE: 01/14/20 AGE: 69 : 49 SEX: M ROOM/BED: D.2306 AUTHOR: ESCOBAR,DOC PHYSICIAN: REFERRING PHYSICIAN: SHANNAN MISHRA MD DATE OF SERVICE: 02/13/20 Discharge Plan Patient Name: RIVERA PHILLIPS Facility: [facility]:[place] : 1950 Planned Disposition: Anticipated Discharge Date: Discharge Date: Expected LOS: Initial Reviewer: [email or web address] Initial Review Date: 01/14/2020 Generated: 02/13/20 7:29 pm Comments DCP- Discharge Planning Updated by [email or web address]: Joan Guerin on 02/13/20 5:[address] CM sent updated records to [facility] and then spoke with Latoya and she stated that they will have some discharges this week and they should be able to admit him then. CM will continue to send updates daily and contact Latoya daily on bed availability. DCP- Discharge Planning Updated by [email or web address]: Joan Guerin on 02/09/20 5:[address] CM called and spoke with Latoya @ [facility] she stated that they are currently full and she may can give CM a better indication as to when a bed will be available on Thursday. CM will speak with physicians and family to see if [facility] CM will continue to follow and assist as needed with discharge planning / needs. DCP- Discharge Planning Updated by [id number]: Joan Guerin on 02/08/20 5:[address] CM called Latoya for update on status to admit to [facility]. Latoya stated that they have filled their last bed today. She will get back with CM in am to see when they may have a discharge and are able to admit. CM will continue to follow and assist as needed with discharge planning / needs. DCP- Discharge Planning Updated by [email or web address]: Joan Guerin on 02/08/20 10:[address] Called and spoke with Latoya at [facility] and she requested updates. CM faxed updates awaiting response of approval. CM will continue to follow and assist as needed with discharge planning / needs. DCP- Discharge Planning Updated by [email or web address]: Joan Guerin on 02/06/20 3:[address] CM FAXED UPDATED CLINICAL TO LTACH - IN PREPARATION FOR POSSIBLE DISCHARGE ON THU. PLANNING PEG PLACEMENT ON TUESDAY 02/06. DCP- Discharge Planning Updated by [id number]: Joan Guerin on 02/01/20 6:[address] Patient being re-intubated this am. Dr. Power stated that patient is not stable for transfer at this time. Patient will most likely need trach and PEG soon. CM will continue to follow and assist as needed with discharge planning / needs. DCP- Discharge Planning Updated by [id number]: Joan Medinar on 02/01/20 6:[address] LATE ENTRY 01/31/20 CM received call with [facility] has accepted patient for [facility]. Patient is getting bronch and possible extubation. Will plan for discharge in am. CM will continue to follow and assist as needed with discharge planning / needs. DCP- Discharge Planning Updated by [id number]: Joan Guerin on 01/30/20 4:[address] CM spoke with patient's spouse regarding LTACH placement. POPEYE completed for [facility] [phone]. CM faxed referral over and records. CM will continue to follow and assist as needed with discharge planning / needs. DCP- Discharge Planning Updated by [email or web address]: Joan Guerin on 01/20/20 8:[address] Patient Name: RIVERA PHILLIPS Admission Status: ER Accout number: [id number] Admission Date: 01-14-2020 : 1950 Admission Diagnosis:ACUTE AND CHRONIC RESPIRATORY FAILURE WITH HYPERCAPNIA Attending: SHANNAN BANKS Current LOS: 6 Anticipated DC Date: Planned Disposition: Primary Insurance: MEDICARE A & B Discharge Planning Comments: CM met with patient at bedside after explaining CM role and obtaining verbal consent. Patient lives at home with his that is disabled where he is independent with his care and plans to return there upon discharge.CM discussed availability / needs of home health and medical equipment. Patient states that he is really weak and his will not be able to care for him but he doesn't feel that home health will help. CM discussed Inpatient Rehab with patient. Patient wants to think it over before he will agree. Patient states he will have his family drive him home upon discharge. CM will continue to follow and assist as needed with discharge planning / needs. Client Evaluator: Joan Guerin Appended by Joan Guerin on 01/20/2020 21:19 CDT: CM looking back through previous admissions that patient has portable and home 02 along with trilogy through [facility]. DCPIA - Discharge Planning Initial Assessment Updated by [email or web address]: Joan Guerin on 01/20/20 9:13 pm * Is the patient Alert and Oriented? Yes * How many steps to enter\exit or inside your home? * PCP CASTRO * Pharmacy [facility] * Preadmission Environment Home with Family * ADLs Independent * Other Equipment CANE, WALKER, W/C, HOME 02, TRILOGY, NEBULIZER * List name and contact numbers for known caregivers / representatives who currently or will assist patient after discharge: CARLI GALLAGHER - BRINA -[phone] * Verbal permission to speak to the caregivers and representatives has been obtained from the patient. Yes * Community resources currently utilized None * Additional services required to return to the preadmission environment? No * Can the patient safely return to the preadmission environment? Yes * Has this patient been hospitalized within the prior 30 days at any hospital? No Last DP export: 02/10/20 4:42 p Patient Name: RIVERA PHILLIPS Page 66617 at 1829 All edits/amendments must be made on the electronic document DICTATION DATE: 02/13/201828 NAVIGATION OFFICER: TERRY 02/13/201828 RPT#: [id number] DC DATE: STATUS: ADM IN [facility] [address] [place] [address] END OF REPORT
--- NOTE | 2020-02-13 19:00 | NUR ---
REPORT RECEVIED FROM THE OFF GOING RN. SEE ASSESSMENT IN THE PTS FLOW SHEET. PT VSS. PT DENIES PAIN/NEEDS BY MOUTHING WORDS. PT ABLE TO FOLLOW COMMANDS AND EXPRESS HIS NEEDS. CALL LIGHT IN REACH. WILL CONT POC.
--- NOTE | 2020-02-13 21:00 | NUR ---
PT RESTING WITH NO ISSUES. VSS. WILL CONT POC.
--- NOTE | 2020-02-13 23:45 | NUR ---
PT VERY RESTLESS AND AGGITATED. PRN VERSED GIVEN. SEE MAR.
[2020-02-14] VITALS (24 sets, daily range): BP systolic 99–194; BP diastolic 45–135
--- NOTE | 2020-02-14 01:00 | NUR ---
PT AWAKE AND CALM AT THIS TIME. VSS. CALL LIGHT IN REACH. WILLC ONT POC.
--- NOTE | 2020-02-14 03:00 | NUR ---
REASSESSMENT COMPLETED. SEE FLOW SHEET. VSS. CALL LIGHT IN REACH. WILL CONT POC.
[2020-02-14 03:47] LABS: BASOPHILS 0.4 % (0-2); EOSINOPHILS 1.4 % (0-7); HEMATOCRIT 28.8 % (42.0-54.0); HEMOGLOBIN 8.5 g/dL (13.5-17.5); IMMATURE GRANULOCYTES 0.8 % (0-5); LYMPHOCYTES 8.9 % (15-50); MCH 28.5 pg (26.0-34.0); MCHC 29.5 g/dL (31.0-37.0); MCV 96.6 fL (80.0-100.0); MEAN PLATELET VOLUME 12.9 fL (7.4-10.4); MONOCYTES 9.5 % (2-11); PLATELET COUNT 164 10x3/uL (130-400); RBC 2.98 10x6/uL (4.20-6.10); RDW 16.6 % (11.5-14.5); WBC 7.9 10x3/uL (4.8-10.8)
[2020-02-14 04:12] LABS: ALBUMIN 2.4 g/dL (3.4-5.0); ALKALINE PHOSPHATASE 85 U/L (30-120); ALT (SGPT) 20 U/L (10-68); BILIRUBIN - TOTAL 0.62 mg/dL (0.2-1.3); CALC OSMOLALITY 279 mosm/kg (275-300); CHLORIDE - SERUM 101 mmol/L (98-107); CREATININE - SERUM 0.7 mg/dL (0.6-1.3); GLUCOSE 121 mg/dL (74-106); POTASSIUM - SERUM 4.5 mmol/L (3.5-5.1); PROTEIN - SERUM 5.6 g/dL (6.4-8.2); SODIUM 139 mmol/L (136-145); UREA NITROGEN 16 mg/dL (7-18); eGFR NON AFRICAN AMERICAN > 90 mL/min (90-120)
--- NOTE | 2020-02-14 11:39 | MORECARE ---
CASE MANAGEMENT DISCHARGE SUMMARY PATIENT: RIVERA PHILLIPS UNIT: [id number] ADM DATE: 01/14/20 AGE: 69 : [birth year] SEX: M ROOM/BED: D.2306 AUTHOR: ESCOBAR,DOC PHYSICIAN: REFERRING PHYSICIAN: SHANNAN MISHRA MD DATE OF SERVICE: 02/14/20 Discharge Plan Patient Name: RIVERA PHILLIPS Facility: [facility]:[place] : 1950 Planned Disposition: Anticipated Discharge Date: Discharge Date: Expected LOS: Initial Reviewer: [email or web address] Initial Review Date: 01/14/2020 Generated: 02/14/20 12:38 pm DCP- Discharge Planning Updated by [email or web address] Guerin on 02/14/20 10:[address] CM spoke with Latoya and faxed updates this am anticipate discharge this week to [facility] as soon as bed available. DCP- Discharge Planning Updated by [id number] Guerin on 02/13/20 5:[address] CM sent updated records to [facility] and then spoke with Latoya and she stated that they will have some discharges this week and they should be able to admit him then. CM will continue to send updates daily and contact Latoya daily on bed availability. DCP- Discharge Planning Updated by [id number] Guerin on 02/09/20 5:[address] CM called and spoke with Latoya @ [facility] she stated that they are currently full and she may can give CM a better indication as to when a bed will be available on Thursday. CM will speak with physicians and family to see if they are interested in trying another LTACH facility. CM will continue to follow and assist as needed with discharge planning / needs. DCP- Discharge Planning Updated by [id number] Guerin on 02/08/20 5:[address] CM called Latoya for update on status to admit to LTACH. Latoya stated that they have filled their last bed today. She will get back with CM in am to see when they may have a discharge and are able to admit. CM will continue to follow and assist as needed with discharge planning / needs. DCP- Discharge Planning Updated by [id number] Guerin on 02/08/20 10:[address] Called and spoke with Latoya at [facility] and she requested updates. CM faxed updates awaiting response of approval. CM will continue to follow and assist as needed with discharge planning / needs. DCP- Discharge Planning Updated by [id number]: Joan Guerin on 02/06/20 3:[address] CM FAXED UPDATED CLINICAL TO LTACH - IN PREPARATION FOR POSSIBLE DISCHARGE ON THU. PLANNING PEG PLACEMENT ON TUESDAY 02/06. DCP- Discharge Planning Updated by [id number]: Joan Guerin on 02/01/20 6:[address] Patient being re-intubated this am. Dr. Power stated that patient is not stable for transfer at this time. Patient will most likely need trach and PEG soon. CM will continue to follow and assist as needed with discharge planning / needs. DCP- Discharge Planning Updated by [id number]: Joan Guerin on 02/01/20 6:[address] LATE ENTRY 01/31/20 CM received call with [facility] has accepted patient for [facility]. Patient is getting bronch and possible extubation. Will plan for discharge in am. CM will continue to follow and assist as needed with discharge planning / needs. DCP- Discharge Planning Updated by [id number]: Joan Guerin on 01/30/20 4:[address] CM spoke with patient's spouse regarding LTACH placement. POPEYE completed for [facility] [phone]. CM faxed referral over and records. CM will continue to follow and assist as needed with discharge planning / needs. DCP- Discharge Planning Updated by [id number]: Joan Guerin on 01/20/20 8:[address] Patient Name: RIVERA PHILLIPS Admission Status: ER Accout number: [id number] Admission Date: 01-14-2020 : 1950 Admission Diagnosis:ACUTE AND CHRONIC RESPIRATORY FAILURE WITH HYPERCAPNIA Attending: SHANNAN BANKS Current LOS: 6 Anticipated DC Date: Planned Disposition: Primary Insurance: MEDICARE A & B Discharge Planning Comments: CM met with patient at bedside after explaining CM role and obtaining verbal consent. Patient lives at home with his that is disabled where he is independent with his care and plans to return there upon discharge.CM discussed availability / needs of home health and medical equipment. Patient states that he is really weak and his will not be able to care for him but he doesn't feel that home health will help. CM discussed Inpatient Rehab with patient. Patient wants to think it over before he will agree. Patient states he will have his family drive him home upon discharge. CM will continue to follow and assist as needed with discharge planning / needs. Environmental Compliance Specialist: Joan Guerin Appended by Joan Guerin on 01/20/2020 21:19 CDT: CM looking back through previous admissions that patient has portable and home 02 along with trilogy through [employer]. DCPIA - Discharge Planning Initial Assessment Updated by [id number]: Joan Guerin on 01/20/20 9:13 pm * Is the patient Alert and Oriented? Yes * How many steps to enter\exit or inside your home? * PCP CASTRO * Pharmacy [facility] * Preadmission Environment Home with Family * ADLs Independent * Other Equipment CANE, WALKER, W/C, HOME 02, TRILOGY, NEBULIZER * List name and contact numbers for known caregivers / representatives who currently or will assist patient after discharge: CARLI GALLAGHER - BRINA -[phone] * Verbal permission to speak to the caregivers and representatives has been obtained from the patient. Yes * Community resources currently utilized None * Additional services required to return to the preadmission environment? No * Can the patient safely return to the preadmission environment? Yes * Has this patient been hospitalized within the prior 30 days at any hospital? No Last DP export: 02/13/20 5:29 pm Patient Name: RIVERA PHILLIPS Page [phone] at 1139 All edits/amendments must be made on the electronic document DICTATION DATE: 02/14/20 1138 YOUTH CORRECTIONS OFFICER: TERRY 02/14/20 1138 RPT#: [id number] [place] DATE: STATUS: ADM IN [facility] [address] [place] [address] END OF REPORT
--- NOTE | 2020-02-14 14:06 | NUR ---
0855 PLACED PATIENT ON CPAP TRIAL 06/18 50% 1215 SWITCHED PATIENT BACK TO ASSIST CONTROL DUE TO PATIENT GOING INTO A-FIB WITH ELEVATED HEART RATE AT 148.
--- NOTE | 2020-02-14 17:33 | MORECARE ---
CASE MANAGEMENT DISCHARGE SUMMARY PATIENT: RIVERA PHILLIPS UNIT: [id number] ADM DATE: 01/14/20 AGE: 69 : 49 SEX: M ROOM/BED: D.2306 AUTHOR: ESCOBAR,DOC PHYSICIAN: REFERRING PHYSICIAN: SHANNAN MISHRA MD DATE OF SERVICE: 02/14/20 Discharge Plan Patient Name: RIVERA PHILLIPS Facility: [facility]:[place] : 1950 Planned Disposition: Anticipated Discharge Date: Discharge Date: Expected LOS: Initial Reviewer: [email or web address] Initial Review Date: 01/14/2020 Generated: 02/14/20 6:33 pm Comments DCP- Discharge Planning Updated by [email or web address]: Joan Guerin on 02/14/20 4:[address] CM spoke with Latoya in [facility] this evening and she stated that the patient will need to be weaned down to 150 mcg of Fentanyl or switched to something different before he can transfer to LTACH. Will need antibiotic for positive culture on bronch wash 02/11. CM will continue to follow and assist as needed with discharge planning / needs. DCP- Discharge Planning Updated by [email or web address]: Joan Guerin on 02/14/20 10:[address] CM spoke with Latoya and faxed updates this am anticipate discharge this week to [facility] as soon as bed available. DCP- Discharge Planning Updated by [id number]: Joan Guerin on 02/13/20 5:[address] CM sent updated records to [facility] and then spoke with Latoya and she stated that they will have some discharges this week and they should be able to admit him then. CM will continue to send updates daily and contact Latoya daily on bed availability. DCP- Discharge Planning Updated by [id number]: Joan Guerin on 02/09/20 5:[address] CM called and spoke with Latoya @ [facility] she stated that they are currently full and she may can give CM a better indication as to when a bed will be available on Thursday. CM will speak with physicians and family to see if they are interested in trying another LTACH facility. CM will continue to follow and assist as needed with discharge planning / needs. DCP- Discharge Planning Updated by [id number]: Joan Guerin on 02/08/20 5:[address] CM called Latoya for update on status to admit to LTACH. Latoya stated that they have filled their last bed today. She will get back with CM in am to see when they may have a discharge and are able to admit. CM will continue to follow and assist as needed with discharge planning / needs. DCP- Discharge Planning Updated by [id number]: Joan Guerin on 02/08/20 10:[address] Called and spoke with Latoya at [facility] and she requested updates. CM faxed updates awaiting response of approval. CM will continue to follow and assist as needed with discharge planning / needs. DCP- Discharge Planning Updated by [id number]: Joan Guerin on 02/06/20 3:[address] CM FAXED UPDATED CLINICAL TO [facility] - IN PREPARATION FOR POSSIBLE DISCHARGE ON THU. PLANNING PEG PLACEMENT ON TUESDAY 02/06. DCP- Discharge Planning Updated by [email or web address]: Joan Guerin on 02/01/20 6:[address] Patient being re-intubated this am. Dr. Power stated that patient is not stable for transfer at this time. Patient will most likely need trach and PEG soon. CM will continue to follow and assist as needed with discharge planning / needs. DCP- Discharge Planning Updated by [id number]: Joan Guerin on 02/01/20 6:[address] LATE ENTRY 01/31/20 CM received call with [facility] has accepted patient for [facility]. Patient is getting bronch and possible extubation. Will plan for discharge in am. CM will continue to follow and assist as needed with discharge planning / needs. DCP- Discharge Planning Updated by [id number]: Joan Guerin on 01/30/20 4:[address] CM spoke with patient's spouse regarding LTACH placement. POPEYE completed for [facility] [phone]. CM faxed referral over and records. CM will continue to follow and assist as needed with discharge planning / needs. DCP- Discharge Planning Updated by [id number]: Joan Guerin on 01/20/20 8:[address] Patient Name: RIVERA PHILLIPS Admission Status: ER Accout number: [id number] Admission Date: 01-14-2020 : 1950 Admission Diagnosis:ACUTE AND CHRONIC RESPIRATORY FAILURE WITH HYPERCAPNIA Attending: SHANNAN BANKS Current LOS: 6 Anticipated DC Date: Planned Disposition: Primary Insurance: MEDICARE A & B Discharge Planning Comments: CM met with patient at bedside after explaining CM role and obtaining verbal consent. Patient lives at home with his that is disabled where he is independent with his care and plans to return there upon discharge.CM discussed availability / needs of home health and medical equipment. Patient states that he is really weak and his will not be able to care for him but he doesn't feel that home health will help. CM discussed Inpatient Rehab with patient. Patient wants to think it over before he will agree. Patient states he will have his family drive him home upon discharge. CM will continue to follow and assist as needed with discharge planning / needs. Credit Card Clerk: Joan Guerin Appended by Joan Guerin on 01/20/2020 21:19 CDT: CM looking back through previous admissions that patient has portable and home 02 along with trilogy through [employer]. DCPIA - Discharge Planning Initial Assessment Updated by [id number]: Joan Guerin on 01/20/20 9:13 pm * Is the patient Alert and Oriented? Yes * How many steps to enter\exit or inside your home? * PCP CASTRO * Pharmacy [facility] * Preadmission Environment Home with Family * ADLs Independent * Other Equipment CANE, WALKER, W/C, HOME 02, TRILOGY, NEBULIZER * List name and contact numbers for known caregivers / representatives who currently or will assist patient after discharge: CARLI GALLAGHER - DAUGHTER -[phone] * Verbal permission to speak to the caregivers and representatives has been obtained from the patient. Yes * Community resources currently utilized None * Additional services required to return to the preadmission environment? No * Can the patient safely return to the preadmission environment? Yes * Has this patient been hospitalized within the prior 30 days at any hospital? No Last DP export: 02/14/20 10:39 am Patient Name: RIVERA PHILLIPS Page [id number] at 1733 All edits/amendments must be made on the electronic document DICTATION DATE: 02/14/201732 SKIN LIFTER BACON: TERRY 02/14/20 1733 RPT#: [id number] DC DATE: STATUS: ADM IN [facility] [address] [place] [address] END OF REPORT
--- NOTE | 2020-02-14 19:00 | NUR ---
REPORT RECEIVED FROM OFF GOING RN. PATIENT REMAINS ON THE VENTILATOR. PATIENT NOTED TO BE IN A FIB RATE 140. ON cARDIZEM. SEE iv FLOWSHEET FOR DRUGS. VITAL SIGNS STABLE. CALL LIGHT IN REACH. WILL CONTINUE PLAN OF CARE.
--- NOTE | 2020-02-14 21:00 | NUR ---
PT VSS. PT REPOSITIONED. CALL LIGHT IN REACH. WILL CONT POC.
--- NOTE | 2020-02-14 23:00 | NUR ---
REASSESSMENT COMPLETED. SEE FLOW SHEET. CALL LIGHT IN REACH. WILL CONT POC.
[2020-02-15] VITALS (24 sets, daily range): BP systolic 80–162; BP diastolic 42–80
--- NOTE | 2020-02-15 00:47 | NUR ---
CARLI PHILLIPS CALLED AND PROVIDED A PASSWORD. UPDATE GIVEN. SHE WAS WAS UPDATED ON THE PTS CONDITION. SHE ASKED ABOUT HOW MUCH FIO2 SHE WAS ON AND I EXPLAINED THAT HE IS CURRENTLY ON 70% FIO2. SHE WAS NOT PLEASED WITH MY ANSWER AND I ATTEMPTED TO EXPLAINED THAT HE HAD RECIEVED A BROCH TODAY. PT VSS CALL LIGHT IN REACH. JUANITA SHARMA.
--- NOTE | 2020-02-15 01:43 | NUR ---
PT WENT FROM AFIB TO AFLUTTER RATE OF 54 BP 89/54. CARDIZEM TURNED OFF. WILL CONT TO MONTIOR.
--- NOTE | 2020-02-15 03:00 | NUR ---
REASSESSMENT COMPLETED. SEE FLOW SHEET. WILL CONT POC.
--- NOTE | 2020-02-15 04:23 | NUR ---
PT IN AFIB RATE 90. BP 141/73. CARDIZEM RESTARTED. SEE IV FLOW SHEET.
[2020-02-15 04:54] LABS: BASOPHILS 0.2 % (0-2); EOSINOPHILS 0.3 % (0-7); HEMATOCRIT 29.3 % (42.0-54.0); HEMOGLOBIN 8.7 g/dL (13.5-17.5); IMMATURE GRANULOCYTES 0.5 % (0-5); MCH 28.8 pg (26.0-34.0); MCHC 29.7 g/dL (31.0-37.0); MEAN PLATELET VOLUME 12.9 fL (7.4-10.4); MONOCYTES 9.3 % (2-11); NEUTROPHILS 84.7 % (40-80); PLATELET COUNT 184 10x3/uL (130-400); RBC 3.02 10x6/uL (4.20-6.10); RDW 16.8 % (11.5-14.5)
[2020-02-15 05:03] LABS: WBC 11.7 10x3/uL (4.8-10.8)
[2020-02-15 05:26] LABS: ALBUMIN 2.3 g/dL (3.4-5.0); ALKALINE PHOSPHATASE 82 U/L (30-120); ALT (SGPT) 15 U/L (10-68); BILIRUBIN - TOTAL 0.74 mg/dL (0.2-1.3); CALC OSMOLALITY 281 mosm/kg (275-300); CALCIUM 8.1 mg/dL (8.5-10.1); CARBON DIOXIDE 37.9 mmol/L (21.0-32.0); CHLORIDE - SERUM 101 mmol/L (98-107); GLUCOSE 145 mg/dL (74-106); POTASSIUM - SERUM 4.1 mmol/L (3.5-5.1); PROTEIN - SERUM 5.7 g/dL (6.4-8.2); SODIUM 139 mmol/L (136-145); UREA NITROGEN 15 mg/dL (7-18); eGFR NON AFRICAN AMERICAN 89 mL/min (90-120)
[2020-02-15 05:36] LABS: CREATININE - SERUM 0.9 mg/dL (0.6-1.3)
--- NOTE | 2020-02-15 05:59 | NUR ---
PT RECEIVED A CHD BATH AND LINEN CHANGE. DRESSING TO RL CHEST CHANGED. SITES LOOK WNL. CALL LIGHT IN REACH. WILLC ONT POC.
--- NOTE | 2020-02-15 10:18 | NUR ---
Nutrition follow-up: Trach to vent Jevity 1.5 pauline @ goal rate of 65 ml/hr Labs reviewed Pt remains in isolation Wt: 261# s/p bronch RDN following.
--- NOTE | 2020-02-15 13:15 | NUR ---
SPOKE WITH FAMILY. GIVEN UPDATE. DENIES NEEDS. NO NEW CHANGES. WILL CONTINUE TO MONITOR
--- NOTE | 2020-02-15 14:59 | NUR ---
OT NOTE: PT COMPLETED BUE AAROM TOLERATED. [id number] THANK YOU,CORINA ALBERTO
--- NOTE | 2020-02-15 15:15 | NUR ---
REASSESMENT COMPLETE PER FLOW SHEET. VSS. PT RESTING COMOFRTABLY WILL CONTINUE TO MONITOR
--- NOTE | 2020-02-15 18:57 | MORECARE ---
CASE MANAGEMENT DISCHARGE SUMMARY PATIENT: RIVERA PHILLIPS UNIT: [id number] ADM DATE: 01/14/20 AGE: 69 : [birth year] SEX: M ROOM/BED: D.2306 AUTHOR: ESCOBAR,DOC PHYSICIAN: REFERRING PHYSICIAN: SHANNAN MISHRA MD DATE OF SERVICE: 02/15/20 Discharge Plan Patient Name: RIVERA PHILLIPS Facility: [facility]:[place] : 1950 Planned Disposition: Anticipated Discharge Date: Discharge Date: Expected LOS: Initial Reviewer: [email or web address] Initial Review Date: 01/14/2020 Generated: 02/15/20 7:56 pm Comments DCP- Discharge Planning Updated by [id number]: Joan Guerin on 02/15/20 5:[address] CM spoke with Latoya several times today and faxed updates. [facility] WITH [facility] is planning to admit patient 02/16/20. CM will continue to follow and assist as needed with discharge planning / needs. DCP- Discharge Planning Updated by [id number]: Joan Guerin on 02/14/20 4:[address] CM spoke with Latoya in [facility] this evening and she stated that the patient will need to be weaned down to 150 mcg of Fentanyl or switched to something different before he can transfer to [facility]ACH. Will need antibiotic for positive culture on bronch wash 02/11. CM will continue to follow and assist as needed with discharge planning / needs. DCP- Discharge Planning Updated by [email or web address]: Joan Guerin on 02/14/20 10:[address] CM spoke with Latoya and faxed updates this am anticipate discharge this week to [facility] as soon as bed available. DCP- Discharge Planning Updated by [id number]: Joan Guerin on 02/13/20 5:[address] CM sent updated records to [facility] and then spoke with Latoya and she stated that they will have some discharges this week and they should be able to admit him then. CM will continue to send updates daily and contact Latoya daily on bed availability. DCP- Discharge Planning Updated by [email or web address]: Joan Guerin on 02/09/20 5:[address] CM called and spoke with Latoya @ [facility] she stated that they are currently full and she may can give CM a better indication as to when a bed will be available on Thursday. CM will speak with physicians and family to see if they are interested in trying another LTACH facility. CM will continue to follow and assist as needed with discharge planning / needs. DCP- Discharge Planning Updated by [id number]: Joan Guerin on 02/08/20 5:[address] CM called Latoya for update on status to admit to [facility]. Latoya stated that they have filled their last bed today. She will get back with CM in am to see when they may have a discharge and are able to admit. CM will continue to follow and assist as needed with discharge planning / needs. DCP- Discharge Planning Updated by [email or web address]: Joan Guerin on 02/08/20 10:[address] Called and spoke with Latoya at [facility] and she requested updates. CM faxed updates awaiting response of approval. CM will continue to follow and assist as needed with discharge planning / needs. DCP- Discharge Planning Updated by [id number]: Joan Guerin on 02/06/20 3:[address] CM FAXED UPDATED CLINICAL TO [facility] - IN PREPARATION FOR POSSIBLE DISCHARGE ON THU. PLANNING PEG PLACEMENT ON TUESDAY 02/06. DCP- Discharge Planning Updated by [id number]: Joan Guerin on 02/01/20 6:[address] Patient being re-intubated this am. Dr. Power stated that patient is not stable for transfer at this time. Patient will most likely need trach and PEG soon. CM will continue to follow and assist as needed with discharge planning / needs. DCP- Discharge Planning Updated by [id number]: Joan Guerin on 02/01/20 6:[address] LATE ENTRY 01/31/20 CM received call with [facility] has [facility] patient for [facility]. Patient is getting bronch and possible extubation. Will plan for discharge in am. CM will continue to follow and assist as needed with discharge planning / needs. DCP- Discharge Planning Updated by [id number]: Joan Guerin on 01/30/20 4:[address] CM spoke with patient's spouse regarding LTACH placement. P[facility]YE completed for [facility] [phone]. CM faxed referral over and records. CM will continue to follow and assist as needed with discharge planning / needs. DCP- Discharge Planning Updated by [id number]: Joan Guerin on 01/20/20 8:[address] Patient Name: RIVERA PHILLIPS Admission Status: ER Accout number: [id number] Admission Date: 01-14-2020 : 1950 Admission Diagnosis:ACUTE AND CHRONIC RESPIRATORY FAILURE WITH HYPERCAPNIA Attending: SHANNAN BANKS Current LOS: 6 Anticipated DC Date: Planned Disposition: Primary Insurance: MEDICARE A & B Discharge Planning Comments: CM met with patient at bedside after explaining CM role and obtaining verbal consent. Patient lives at home with his that is disabled where he is independent with his care and plans to return there upon discharge.CM discussed availability / needs of home health and medical equipment. Patient states that he is really weak and his will not be able to care for him but he doesn't feel that home health will help. CM discussed Inpatient Rehab with patient. Patient wants to think it over before he will agree. Patient states he will have his family drive him home upon discharge. CM will continue to follow and assist as needed with discharge planning / needs. Gas Regulator Repairer: Joan Guerin Appended by Joan Guerin on 01/20/2020 21:19 CDT: CM looking back through previous admissions that patient has portable and home 02 along with trilogy through [employer]. DCPIA - Discharge Planning Initial Assessment Updated by [id number]: Joan Guerin on 01/20/20 9:13 pm * Is the patient Alert and Oriented? Yes * How many steps to enter\exit or inside your home? * PCP CASTRO * Pharmacy [facility] * Preadmission Environment Home with Family * ADLs Independent * Other Equipment CANE, WALKER, W/C, HOME 02, TRILOGY, NEBULIZER * List name and contact numbers for known caregivers / representatives who currently or will assist patient after discharge: CARLI GALLAGHER - DAUGHTER -[phone] * Verbal permission to speak to the caregivers and representatives has been obtained from the patient. Yes * Community resources currently utilized None * Additional services required to return to the preadmission environment? No * Can the patient safely return to the preadmission environment? Yes * Has this patient been hospitalized within the prior 30 days at any hospital? No Last DP export: 02/14/20 4:33 pm Patient Name: RIVERA PHILLIPS Page [id number] at 1857 All edits/amendments must be made on the electronic document DICTATION DATE: 02/15/201855 YARN PREPARATION SUPERVISOR: TERRY 02/15/201855 RPT#: [id number] DC DATE: STATUS: ADM IN [facility] [address] [place] [address] END OF REPORT
--- NOTE | 2020-02-15 19:00 | NUR ---
REPORT RECEIVED. PT SEDATED ON VENT, NO ACUTE DISTRESS NOTED. ASSESSMENT COMPLETED, SEE FLOWSHEET. RT SUBCLAVIAN CVL INFUSING, SEE IV FLOWSHEET. WILL CONTINUE TO MONITOR.
--- NOTE | 2020-02-15 21:00 | NUR ---
PT SEDATED ON VENT. NO ACUTE DISTRESS NOTED.
--- NOTE | 2020-02-15 23:00 | NUR ---
REASSESSMENT COMPLETED, SEE FLOWSHEET.
[2020-02-16] VITALS (11 sets, daily range): BP systolic 125–159; BP diastolic 54–86
--- NOTE | 2020-02-16 01:00 | NUR ---
PT SEDATED ON VENT, REPOSITIONED FOR COMFORT.
--- NOTE | 2020-02-16 03:00 | NUR ---
REASSESSMENT COMPLETED, SEE FLOWSHEET.
--- NOTE | 2020-02-16 05:00 | NUR ---
PT RESTING COMFORTABLY IN BED. NO ACUTE DISTRESS NOTED, WILL CONTINUE TO MONITOR.
[2020-02-16 05:50] LABS: BASOPHILS 0.4 % (0-2); HEMATOCRIT 27.4 % (42.0-54.0); HEMOGLOBIN 8.3 g/dL (13.5-17.5); IMMATURE GRANULOCYTES 0.6 % (0-5); LYMPHOCYTES 10.1 % (15-50); MCHC 30.3 g/dL (31.0-37.0); MCV 95.8 fL (80.0-100.0); MEAN PLATELET VOLUME 13.6 fL (7.4-10.4); MONOCYTES 10.1 % (2-11); NEUTROPHILS 77.8 % (40-80); PLATELET COUNT 201 10x3/uL (130-400); RBC 2.86 10x6/uL (4.20-6.10); WBC 8.4 10x3/uL (4.8-10.8)
[2020-02-16 06:01] LABS: ALBUMIN 2.3 g/dL (3.4-5.0); ALKALINE PHOSPHATASE 94 U/L (30-120); ALT (SGPT) 18 U/L (10-68); BILIRUBIN - TOTAL 0.57 mg/dL (0.2-1.3); CALC OSMOLALITY 281 mosm/kg (275-300); CALCIUM 8.3 mg/dL (8.5-10.1); CARBON DIOXIDE 37.6 mmol/L (21.0-32.0); CHLORIDE - SERUM 101 mmol/L (98-107); CREATININE - SERUM 0.8 mg/dL (0.6-1.3); GLUCOSE 125 mg/dL (74-106); POTASSIUM - SERUM 4.3 mmol/L (3.5-5.1); PROTEIN - SERUM 5.9 g/dL (6.4-8.2); SODIUM 140 mmol/L (136-145); UREA NITROGEN 18 mg/dL (7-18); eGFR NON AFRICAN AMERICAN > 90 mL/min (90-120)
--- NOTE | 2020-02-16 07:00 | NUR ---
REPORT RECEIVED. ASSESSMENT COMPLETE PER FLOW SHEET. VSS. PT RESTING COMFORTABLY WILL CONTINUE TO MONITOR
--- NOTE | 2020-02-16 10:13 | NUR ---
DR DELGADO SPOKE WITH DR FAULKNER ABOUT PT STATUS REQUIRING MULTIPLE FREQUENT BRONCHS, DR FAULKNER ACCEPTED PT STATED LONG HEMODYNAMICALLY STABLE SHE COULD MANAGE. DR DELGADO STATED OKAY. REPORT CALLED TO [facility] RACHEAL. [phone]
--- NOTE | 2020-02-16 10:38 | NUR ---
INCREASED PEEP TO [address] DELGADO
--- NOTE | 2020-02-16 11:50 | NUR ---
PT LEFT VIA AMBULANCE. VSS UPON DISCHARGE. NEEDS MET
--- NOTE | 2020-02-16 14:25 | MORECARE ---
CASE MANAGEMENT DISCHARGE SUMMARY PATIENT: RIVERA PHILLIPS UNIT: [id number] ADM DATE: 01/14/20 AGE: 69 : 49 SEX: M ROOM/BED: D.2306 AUTHOR: ESCOBAR,DOC PHYSICIAN: REFERRING PHYSICIAN: SHANNAN MISHRA MD DATE OF SERVICE: 02/16/20 Discharge Plan Patient Name: RIVERA PHILLIPS Facility: [facility]:[place] : 1950 Planned Disposition: Anticipated Discharge Date: Discharge Date: 02/16/2020 Expected LOS: Initial Reviewer: [email or web address] Initial Review Date: 01/14/2020 Generated: 02/16/20 3:24 pm Comments DCP- Discharge Planning Updated by [id number]: Joan Guerin on 02/16/20 1:[address] Patient accepted and discharging to [facility] today. DCP- Discharge Planning Updated by [email or web address]: Joan Guerin on 02/15/20 5:[address] CM spoke with Latoya several times today and faxed updates. [facility] is planning to admit patient 02/16/20. CM will continue to follow and assist as needed with discharge planning / needs. DCP- Discharge Planning Updated by [email or web address]: Joan Guerin on 02/14/20 4:[address] CM spoke with Latoya in [facility] this evening and she stated that the patient will need to be weaned down to 150 mcg of Fentanyl or switched to something different [facility] Will need antibiotic for positive culture on bronch wash 02/11. CM will continue to follow and assist as needed with discharge planning / needs. DCP- Discharge Planning Updated by [email or web address]: Joan Guerin on 02/14/20 10:[address] CM spoke with Latoya and faxed updates this am anticipate discharge this week to [facility] as soon as bed available. DCP- Discharge Planning Updated by [id number]: Joan Guerin on 02/13/20 5:[address] CM sent updated records to [facility] and then spoke with Latoya and she stated that they will have some discharges this week and they should be able to admit him then. CM will continue to send updates daily and contact Latoya daily on bed availability. DCP- Discharge Planning Updated by [email or web address]: Joan Guerin on 02/09/20 5:[address] CM called and spoke with Latoya @ [facility] she stated that they are currently full and she may can give CM a better indication as to when a bed will be available on Thursday. CM will speak with physicians and family to see if they are interested in trying another LTACH facility. CM will continue to follow and assist as needed with discharge planning / needs. DCP- Discharge Planning Updated by [id number]: Joan Guerin on 02/08/20 5:[address] CM called Latoya for update on status to admit to LTACH. Latoya stated that they have filled their last bed today. She will get back with CM in am to see when they may have a discharge and are able to admit. CM will continue to follow and assist as needed with discharge planning / needs. DCP- Discharge Planning Updated by [id number]: Joan Guerin on 02/08/20 10:[address] Called and spoke with Latoya at [facility] and she requested updates. CM faxed updates awaiting response of approval. CM will continue to follow and assist as needed with discharge planning / needs. DCP- Discharge Planning Updated by [email or web address]: Joan Guerin on 02/06/20 3:[address] CM FAXED UPDATED CLINICAL TO LTACH - IN PREPARATION FOR POSSIBLE DISCHARGE ON THU. PLANNING PEG PLACEMENT ON TUESDAY 02/06. DCP- Discharge Planning Updated by [email or web address]: Joan Guerin on 02/01/20 6:[address] Patient being re-intubated this am. Dr. Power stated that patient is not stable for transfer at this time. Patient will most likely need trach and PEG soon. CM will continue to follow and assist as needed with discharge planning / needs. DCP- Discharge Planning Updated by [id number]: Joan Guerin on 02/01/20 6:[address] LATE ENTRY 01/31/20 CM received call with [facility] has accepted patient for [facility]. Patient is getting bronch and possible extubation. Will plan for discharge in am. CM will continue to follow and assist as needed with discharge planning / needs. DCP- Discharge Planning Updated by [id number]: Joan Guerin on 01/30/20 4:[address] CM spoke with patient's spouse regarding LTACH placement. [facility] completed for [facility] [phone]. CM faxed referral over and records. CM will continue to follow and assist as needed with discharge planning / needs. DCP- Discharge Planning Updated by [id number]: Joan Guerin on 01/20/20 8:[address] Patient Name: RIVERA PHILLIPS Admission Status: ER Accout number: [id number] Admission Date: 01-14-2020 : 1950 Admission Diagnosis:ACUTE AND CHRONIC RESPIRATORY FAILURE WITH HYPERCAPNIA Attending: SHANNAN BANKS Current LOS: 6 Anticipated DC Date: Planned Disposition: Primary Insurance: MEDICARE A & B Discharge Planning Comments: CM met with patient at bedside after explaining CM role and obtaining verbal consent. Patient lives at home with his that is disabled where he is independent with his care and plans to return there upon discharge.CM discussed availability / needs of home health and medical equipment. Patient states that he is really weak and his will not be able to care for him but he doesn't feel that home health will help. CM discussed Inpatient Rehab with patient. Patient wants to think it over before he will agree. Patient states he will have his family drive him home upon discharge. CM will continue to follow and assist as needed with discharge planning / needs. Interpreter Translator: Joan Guerin Appended by Joan Guerin on 01/20/2020 21:19 CDT: CM looking back through previous admissions that patient has portable and home 02 along with trilogy through [employer]. DCPIA - Discharge Planning Initial Assessment Updated by [id number]: Joan Guerin on 01/20/20 9:13 pm * Is the patient Alert and Oriented? Yes * How many steps to enter\exit or inside your home? * PCP CASTRO * Pharmacy [facility] * Preadmission Environment Home with Family * ADLs Independent * Other Equipment CANE, WALKER, W/C, HOME 02, TRILOGY, NEBULIZER * List name and contact numbers for known caregivers / representatives who currently or will assist patient after discharge: CARLI GALLAGHER - DAUGHTER -[phone] * Verbal permission to speak to the caregivers and representatives has been obtained from the patient. Yes * Community resources currently utilized None * Additional services required to return to the preadmission environment? No * Can the patient safely return to the preadmission environment? Yes * Has this patient been hospitalized within the prior 30 days at any hospital? No Coverage Notice Reviewer: [id number] Neil Guerin Notice Issued Date-Time: 02/16/2020 9:30 Notice Type: IM Discharge Notice Notice Delivered To: Family Member Relationship to Patient: Spouse Auto Body Mechanic Name: CARLI PHILLIPS Delivery Method: PHONE - Phone Jen Days: Prior Verbal Notification: Recipient Understood Notice: Yes Recipient Signature: Yes Med Rec Note Co-signed by Attending: Coverage Notice Comment: Reviewer: [id number] Neil Guerin Notice Issued Date-Time: 02/02/2020 11:05 Notice Type: Patient Choice Letter Notice Delivered To: Patient Relationship to Patient: Spouse Auto Body Mechanic Name: CARLI PHILLIPS Delivery Method: PHONE - Phone Jen Days: Prior Verbal Notification: Recipient Understood Notice: Yes Recipient Signature: Med Rec Note Co-signed by Attending: Coverage Notice Comment: Last DP export: 02/15/20 5:57 pm Patient Name: RIVERA PHILLIPS Page [id number] at 1425 All edits/amendments must be made on the electronic document DICTATION DATE: 02/16/20 1425 STARCH FACTORY LABORER: TERRY 02/16/20 1425 RPT#: [id number] DC DATE:02/16/20 STATUS: DIS IN [facility] [address] [place] [address] END OF REPORT
[2020-02-16 16:09] LABS: ACID FAST SMEAR Negative (()); AFB SPECIMEN PROCESSING Concentration (())
--- NOTE | 2020-02-16 19:57 | MORECARE ---
CASE MANAGEMENT DISCHARGE SUMMARY PATIENT: RIVERA PHILLIPS UNIT: [id number] ADM DATE: 01/14/20 AGE: 69 : 49 SEX: M ROOM/BED: D.2306 AUTHOR: ESCOBAR,DOC PHYSICIAN: REFERRING PHYSICIAN: SHANNAN MISHRA MD DATE OF SERVICE: 02/16/20 Discharge Plan Patient Name: RIVERA PHILLIPS Facility: [facility]:[place] : 1950 Planned Disposition: Anticipated Discharge Date: Discharge Date: 02/16/2020 Expected LOS: Initial Reviewer: [email or web address] Initial Review Date: 01/14/2020 Generated: 02/16/20 8:57 pm Comments DCP- Discharge Planning Updated by [email or web address]: Joan Guerin on 02/16/20 1:[address] Patient accepted and discharging to [facility] today. DCP- Discharge Planning Updated by [id number]: Joan Guerin on 02/15/20 5:[address] CM spoke with Latoya several times today and faxed updates. [facility] is planning to admit patient 02/16/20. CM will continue to follow and assist as needed with discharge planning / needs. DCP- Discharge Planning Updated by [id number]: Joan Guerin on 02/14/20 4:[address] CM spoke with Latoya in [facility] this evening and she stated that the patient will need to be weaned down to 150 mcg of Fentanyl or switched to something different before [facility] can [facility]. Will need antibiotic for positive culture on bronch wash 02/11. CM will continue to follow and assist as needed with discharge planning / needs. DCP- Discharge Planning Updated by [email or web address]: Joan Guerin on 02/14/20 10:[address] CM spoke with Latoya and faxed updates this am anticipate discharge this week to [facility] as soon as bed available. DCP- Discharge Planning Updated by [id number]: Joan Guerin on 02/13/20 5:[address] CM sent updated records to [facility] and then spoke with Latoya and she stated that they will have some discharges this week and they should be able to admit him then. CM will continue to send updates daily and contact Latoya daily on bed availability. DCP- Discharge Planning Updated by [email or web address]: Joan Guerin on 02/09/20 5:[address] CM called and spoke with Latoya @ [facility] she stated that they are currently full and she may can give CM a better indication as to when a bed will be available on Thursday. CM will speak with physicians and family to see if they are interested in trying another LTACH facility. CM will continue to follow and assist as needed with discharge planning / needs. DCP- Discharge Planning Updated by [email or web address]: Joan Guerin on 02/08/20 5:[address] CM called Latoya for update on status to admit to LTACH. Latoya stated that they have filled their last bed today. She will get back with CM in am to see when they may have a discharge and are able to admit. CM will continue to follow and assist as needed with discharge planning / needs. DCP- Discharge Planning Updated by [id number]: Joan Guerin on 02/08/20 10:[address] Called and spoke with Latoya at [facility] and she requested updates. CM faxed updates awaiting response of approval. CM will continue to follow and assist as needed with discharge planning / needs. DCP- Discharge Planning Updated by [id number]: Joan Guerin on 02/06/20 3:[address] CM FAXED UPDATED CLINICAL TO LTACH - IN PREPARATION FOR POSSIBLE DISCHARGE ON THU. PLANNING PEG PLACEMENT ON TUESDAY 02/06. DCP- Discharge Planning Updated by [email or web address]: Joan Guerin on 02/01/20 6:[address] Patient being re-intubated this am. Dr. Power stated that patient is not stable for transfer at this time. Patient will most likely need trach and PEG soon. CM will continue to follow and assist as needed with discharge planning / needs. DCP- Discharge Planning Updated by [id number]: Joan Guerin on 02/01/20 6:[address] LATE ENTRY 01/31/20 CM received call with [facility] patient for [facility]. Patient is getting bronch and possible extubation. Will plan for discharge in am. CM will continue to follow and assist as needed with discharge planning / needs. DCP- Discharge Planning Updated by [email or web address]: Joan Guerin on 01/30/20 4:[address] CM spoke with patient's spouse regarding LTACH placement. [facility] completed for [facility] [phone]. CM faxed referral over and records. CM will continue to follow and assist as needed with discharge planning / needs. DCP- Discharge Planning Updated by [email or web address]: Joan Guerin on 01/20/20 8:[address] Patient Name: RIVERA PHILLIPS Admission Status: ER Accout number: [id number] Admission Date: 01-14-2020 : 1950 Admission Diagnosis:ACUTE AND CHRONIC RESPIRATORY FAILURE WITH HYPERCAPNIA Attending: SHANNAN BANKS Current LOS: 6 Anticipated DC Date: Planned Disposition: Primary Insurance: MEDICARE A & B Discharge Planning Comments: CM met with patient at bedside after explaining CM role and obtaining verbal consent. Patient lives at home with his that is disabled where he is independent with his care and plans to return there upon discharge.CM discussed availability / needs of home health and medical equipment. Patient states that he is really weak and his will not be able to care for him but he doesn't feel that home health will help. CM discussed Inpatient Rehab with patient. Patient wants to think it over before he will agree. Patient states he will have his family drive him home upon discharge. CM will continue to follow and assist as needed with discharge planning / needs. Dragline Operator: Joan Guerin Appended by Joan Guerin on 01/20/2020 21:19 CDT: CM looking back through previous admissions that patient has portable and home 02 along with trilogy through [employer]. DCPIA - Discharge Planning Initial Assessment Updated by [id number]: Joan Guerin on 01/20/20 9:13 pm * Is the patient Alert and Oriented? Yes * How many steps to enter\exit or inside your home? * PCP CASTRO * Pharmacy [facility] * Preadmission Environment Home with Family * ADLs Independent * Other Equipment CANE, WALKER, W/C, HOME 02, TRILOGY, NEBULIZER * List name and contact numbers for known caregivers / representatives who currently or will assist patient after discharge: CARLI GALLAGHER - DAUGHTER -[phone] * Verbal permission to speak to the caregivers and representatives has been obtained from the patient. Yes * Community resources currently utilized None * Additional services required to return to the preadmission environment? No * Can the patient safely return to the preadmission environment? Yes * Has this patient been hospitalized within the prior 30 days at any hospital? No Coverage Notice Reviewer: [id number] Neil Guerin Notice Issued Date-Time: 02/16/2020 9:30 Notice Type: IM Discharge Notice Notice Delivered To: Family Member Relationship to Patient: Spouse Assistant Department Manager Name: CARLI PHILLIPS Delivery Method: PHONE - Phone Jen Days: Prior Verbal Notification: Recipient Understood Notice: Yes Recipient Signature: Yes Med Rec Note Co-signed by Attending: Coverage Notice Comment: Reviewer: [id number] Neil Guerin Notice Issued Date-Time: 02/02/2020 11:05 Notice Type: Patient Choice Letter Notice Delivered To: Patient Relationship to Patient: Spouse Assistant Department Manager Name: CARLI PHILLIPS Delivery Method: PHONE - Phone Jen Days: Prior Verbal Notification: Recipient Understood Notice: Yes Recipient Signature: Med Rec Note Co-signed by Attending: Coverage Notice Comment: Last DP export: 02/16/20 1:25 pm Patient Name: RIVERA PHILLIPS Page [phone] at 1957 All edits/amendments must be made on the electronic document DICTATION DATE: 02/16/201956 TUBE SORTER: TERRY 02/16/201956 RPT#: [id number] DC DATE:02/16/20 STATUS: DIS IN [facility] [address] [place] [address] END OF REPORT
[2020-02-17 10:11] LABS: FUNGUS STAIN Final report (())
== END 2020-02-16 12:16 | disposition short-term general hospital (02) | DRG 3 ==
LOC: D.ER 10:05 → D.ICU 11:27
PROVIDERS: Emergency Medicine; Family Medicine; Internal Medicine Nephrology; Internal Medicine Pulmonary Disease; Thoracic Surgery (Cardiothoracic Vascular Surgery); ADMIT Family Medicine Adult Medicine; ATTEND Family Medicine Adult Medicine
PROC: 5A1955Z Respiratory Ventilation, Greater than 96 Consecutive Hours (ICD-10-PCS; 2020-01-14)
PROC: 0BH17EZ Insertion of Endotracheal Airway into Trachea, Via Natural or Artificial Opening (ICD-10-PCS; 2020-01-14)
PROC: 0B928ZZ Drainage of Carina, Via Natural or Artificial Opening Endoscopic (ICD-10-PCS; 2020-01-14)
PROC: 0B948ZZ Drainage of Right Upper Lobe Bronchus, Via Natural or Artificial Opening Endoscopic (ICD-10-PCS; 2020-01-14)
PROC: 0B988ZZ Drainage of Left Upper Lobe Bronchus, Via Natural or Artificial Opening Endoscopic (ICD-10-PCS; 2020-01-14)
PROC: 0B918ZZ Drainage of Trachea, Via Natural or Artificial Opening Endoscopic (ICD-10-PCS; 2020-01-14)
PROC: 0B958ZZ Drainage of Right Middle Lobe Bronchus, Via Natural or Artificial Opening Endoscopic (ICD-10-PCS; 2020-01-14)
PROC: 0B938ZZ Drainage of Right Main Bronchus, Via Natural or Artificial Opening Endoscopic (ICD-10-PCS; 2020-01-14)
PROC: 0B978ZZ Drainage of Left Main Bronchus, Via Natural or Artificial Opening Endoscopic (ICD-10-PCS; 2020-01-14)
PROC: 0B968ZZ Drainage of Right Lower Lobe Bronchus, Via Natural or Artificial Opening Endoscopic (ICD-10-PCS; 2020-01-14)
PROC: 0B9B8ZZ Drainage of Left Lower Lobe Bronchus, Via Natural or Artificial Opening Endoscopic (ICD-10-PCS; 2020-01-14)
PROC: 0B998ZZ Drainage of Lingula Bronchus, Via Natural or Artificial Opening Endoscopic (ICD-10-PCS; 2020-01-14)
PROC: 05HN33Z Insertion of Infusion Device into Left Internal Jugular Vein, Percutaneous Approach (ICD-10-PCS; 2020-01-14)
PROC: 0W9930Z Drainage of Right Pleural Cavity with Drainage Device, Percutaneous Approach (ICD-10-PCS; 2020-01-16)
PROC: 0W29X0Z Change Drainage Device in Right Pleural Cavity, External Approach (ICD-10-PCS; 2020-01-20)
PROC: 0BJ08ZZ Inspection of Tracheobronchial Tree, Via Natural or Artificial Opening Endoscopic (ICD-10-PCS; 2020-01-24)
PROC: 5A1955Z Respiratory Ventilation, Greater than 96 Consecutive Hours (ICD-10-PCS; 2020-01-24)
PROC: 0BH17EZ Insertion of Endotracheal Airway into Trachea, Via Natural or Artificial Opening (ICD-10-PCS; 2020-01-24)
PROC: 0BCF0ZZ Extirpation of Matter from Right Lower Lung Lobe, Open Approach (ICD-10-PCS; principal; 2020-01-24 11:00)
PROC: 0B938ZZ Drainage of Right Main Bronchus, Via Natural or Artificial Opening Endoscopic (ICD-10-PCS; 2020-01-25)
PROC: 0B968ZZ Drainage of Right Lower Lobe Bronchus, Via Natural or Artificial Opening Endoscopic (ICD-10-PCS; 2020-01-27)
PROC: 0BC38ZZ Extirpation of Matter from Right Main Bronchus, Via Natural or Artificial Opening Endoscopic (ICD-10-PCS; 2020-01-29)
PROC: 0B9F8ZX Drainage of Right Lower Lung Lobe, Via Natural or Artificial Opening Endoscopic, Diagnostic (ICD-10-PCS; 2020-01-31)
PROC: 5A1955Z Respiratory Ventilation, Greater than 96 Consecutive Hours (ICD-10-PCS; 2020-02-01)
PROC: 0BH17EZ Insertion of Endotracheal Airway into Trachea, Via Natural or Artificial Opening (ICD-10-PCS; 2020-02-01)
PROC: 0B9F8ZX Drainage of Right Lower Lung Lobe, Via Natural or Artificial Opening Endoscopic, Diagnostic (ICD-10-PCS; 2020-02-01)
PROC: 0B113F4 Bypass Trachea to Cutaneous with Tracheostomy Device, Percutaneous Approach (ICD-10-PCS; 2020-02-03)
PROC: 0DH63UZ Insertion of Feeding Device into Stomach, Percutaneous Approach (ICD-10-PCS; 2020-02-07)
PROC: 0DB78ZX Excision of Stomach, Pylorus, Via Natural or Artificial Opening Endoscopic, Diagnostic (ICD-10-PCS; 2020-02-07)
PROC: 0B938ZZ Drainage of Right Main Bronchus, Via Natural or Artificial Opening Endoscopic (ICD-10-PCS; 2020-02-07)
PROC: 0B938ZZ Drainage of Right Main Bronchus, Via Natural or Artificial Opening Endoscopic (ICD-10-PCS; 2020-02-08)
PROC: 0BC38ZZ Extirpation of Matter from Right Main Bronchus, Via Natural or Artificial Opening Endoscopic (ICD-10-PCS; 2020-02-11)
PROC: 0BC38ZZ Extirpation of Matter from Right Main Bronchus, Via Natural or Artificial Opening Endoscopic (ICD-10-PCS; 2020-02-12)
PROC: 0B9F8ZX Drainage of Right Lower Lung Lobe, Via Natural or Artificial Opening Endoscopic, Diagnostic (ICD-10-PCS; 2020-02-14)
DX: A41.9 Sepsis, unspecified organism (principal); J96.22 Acute and chronic respiratory failure with hypercapnia; J18.9 Pneumonia, unspecified organism; R65.21 Severe sepsis with septic shock; J96.21 Acute and chronic respiratory failure with hypoxia; J86.9 Pyothorax without fistula; E43 Unspecified severe protein-calorie malnutrition; J44.0 Chronic obstructive pulmonary disease with (acute) lower respiratory infection; J98.11 Atelectasis; J44.1 Chronic obstructive pulmonary disease with (acute) exacerbation; F17.203 Nicotine dependence unspecified, with withdrawal; N39.0 Urinary tract infection, site not specified; G72.81 Critical illness myopathy; E87.2 Acidosis; I48.91 Unspecified atrial fibrillation; F10.10 Alcohol abuse, uncomplicated; J30.9 Allergic rhinitis, unspecified; I10 Essential (primary) hypertension; F41.8 Other specified anxiety disorders; K44.9 Diaphragmatic hernia without obstruction or gangrene; K57.90 Diverticulosis of intestine, part unspecified, without perforation or abscess without bleeding; N40.0 Benign prostatic hyperplasia without lower urinary tract symptoms; Z86.73 Personal history of transient ischemic attack (TIA), and cerebral infarction without residual deficits; D35.02 Benign neoplasm of left adrenal gland; Z68.28 Body mass index [BMI] 28.0-28.9, adult

== ENCOUNTER → 2021-02-13 16:34 | Outpatient (CLI) | payer MEDICARE ==
[2020-01-21 08:48] VITALS: BMI 34.3
[2021-02-13 18:38] LABS: BILIRUBIN NEGATIVE (NEGATIVE); KETONE NEGATIVE (NEGATIVE); NITRITE POSITIVE (NEGATIVE); UROBILINOGEN NORMAL mg/dL (< 2)
[2021-02-13 18:39] LABS: WHITE CELLS - URINE 25-50 HPF (0-1)
[2021-02-13 18:40] LABS: BACTERIA FEW HPF (NONE SEEN)
== END | disposition home or self-care (01) ==
LOC: D.LABREF 16:34
PROVIDERS: ATTEND Family Medicine
DX: N39.0 Urinary tract infection, site not specified (principal)